=== PATIENT | female | born 1935 | race American Indian/Alaskan Native ===

== ENCOUNTER 2017-05-13 09:08 | Inpatient (IN) | payer MEDICARE, OTHER ==
[2017-05-13 09:24] VITALS: BMI 28.5
[2017-05-13] MEDS ORDERED: Sodium Chloride 0.9% 500 ML IV STA (10:02)
--- NOTE | 2017-05-13 10:02 | ED PDOC ---
Arrival/HPI - General Time Seen by Provider: 05/13/17 09:33 Historian: Patient, Family (son) - History of Present Illness Narrative History of Present Illness (Text): 05/13/17 09:50 Aretha Orlando is an 81 year old female, whose past medical history includes COPD , diabetes, and hypertension, who presents to the emergency department accompanied by son, with complaints of increased fatigue and weakness since yesterday. Patient has had "a cold" consisting of congestion and bodyaches for "two weeks". However the patient's house painter states that she became much more weak since yesterday evening and was intermittently confused and disoriented. She reports generalized headache intermittently for several months, but reports some decreased appetite and feeling short of breath with any exertion. She has chronic swelling to legs, not worse than typical. Reports upper abdominal pain intermittently since yesterday. Patient denies dysuria or frequence. No bloody stool or diarrhea. Time/Duration: 24 hours Symptom Onset: Gradual Symptom Course: Worsening Activities at Onset: Rest Context: Home Past Medical History - Provider Review Nursing Documentation Reviewed: Yes - Cardiac Hx Angina: (chest pain) Hx Hypertension: Yes Hx Pacemaker: Yes (1999) - Pulmonary Hx Chronic Obstructive Pulmonary Disease (COPD): Yes - HEENT Hx HEENT Disorder: Yes (WEARS RX GLASSES) Hx Deafness: Yes (BILATERAL HEARING AIDE) - Endocrine/Metabolic Hx Endocrine Disorders: Yes Hx Diabetes Mellitus Type 2: Yes - Musculoskeletal/Rheumatological Hx Musculoskeletal Disorders: Yes (RIGHT FOOT SURGERY) Hx Arthritis: Yes Hx Falls: No - Gastrointestinal Hx Gastrointestinal Disorders: Yes (CHOLELITHIASIS,CHOLECYSTITIS,INCISIONAL HERNIA) Hx Diverticulitis: Yes (s/p resection) Hx Gastroesophageal Reflux: Yes Other/Comment: HEMORRHOIDS - Genitourinary/Gynecological Hx Genitourinary Disorders: (CEASEREAN,CYST IN FALLOPIAN TUBE) - Psychiatric Hx Substance Use: No - Surgical History Other/Comment: colon resection for diverticulitis - Anesthesia Hx Anesthesia Reactions: Yes (DECREASED O2 SAT AND HR, DIFFICULT TO AROUSE) - Suicidal Assessment Feels Threatened In Home Enviroment: No Family/Social History - Physician Review Nursing Documentation Reviewed: Yes Family/Social History: Unknown Family HX Smoking Status: Former Smoker Hx Alcohol Use: Yes (WINE SOCIALLY) Hx Substance Use: No Allergies/Home Meds Allergies/Adverse Reactions: Allergies Penicillins Adverse Reaction (Verified 05/13/17 10:01) RASH Home Medications: Home Meds Medication Instructions Recorded Confirmed Cholecalciferol [Pure Vitamin D3] 3,000 iu PO DAILY 10/24/14 10/24/14 Furosemide [Lasix] 20 mg PO DAILY 10/24/14 10/24/14 Lisinopril 2.5 mg PO DAILY 10/24/14 10/24/14 Metformin HCl 1,000 mg PO BID 10/24/14 08/28/16 Oxycodone HCl/Acetaminophen 1 tab PO QID 10/24/14 10/24/14 [Oxycodone-Acetaminophen 5-325] Apixaban [Eliquis] 2.5 mg PO DAILY 08/28/16 08/28/16 Ezetimibe [Zetia] 10 mg PO DAILY 08/28/16 08/28/16 Review of Systems - Review of Systems Constitutional: Fatigue Eyes: absent: Vision Changes ENT: Rhinorrhea, Sinus Congestion Respiratory: SOB Cardiovascular: Chest Pain Gastrointestinal: Abdominal Pain, Appetite Changes. absent: Diarrhea Genitourinary Female: absent: Dysuria Musculoskeletal: absent: Back Pain Skin: absent: Rash Neurological: Headache. absent: Dizziness Endocrine: absent: Polyuria Hemo/Lymphatic: absent: Easy Bleeding Psychiatric: absent: Depression Physical Exam - Physical Exam Narrative Physical Exam (Text): 05/13/17 Head: Atraumatic. Normocephalic. No rash. No palpable pain. No rash. Eyes: PERRL. EOMI. Conjunctivae are not pale. Visual acuity and servin intact. ENT: Mucous membranes are dry. No pharyngeal erythema or exudates. Neck: Supple. Full ROM. No JVD. No lymphadenopathy. No meningeal signs. Cardiovascular: Regular rate. Regular rhythm. No murmurs, rubs, or gallops. Distal pulses are 2+ and symmetric. Pulmonary/Chest: No evidence of respiratory distress. Clear to auscultation bilaterally. No wheezing, rales or rhonchi. Abdominal: Soft, nondistended. Focal epigastric pain. No Nava's sign. Mild suprapubic pain, no rebound or guarding. Back: No CVA tenderness. No midlne tenderness. Rectal: no melena or gross bleeding Extremities: Bilateral symmetric edema, no pitting. No cyanosis. No clubbing. Full range of motion in all extremities. No calf tenderness. Skin: Skin is warm and dry. No petechiae. No purpura. Neurological: Alert, awake, and oriented to person, place and time. No slurred speech. No facial droop. No focal weakness to arms and legs. No meningeal signs. Psychiatric: Good eye contact. Normal interaction, affect, and behavior. Vital Signs Reviewed: Yes Vital Signs Temp Pulse Resp BP Pulse Ox 05/13/17 14:44 98.6 F 62 18 102/55 L 97 05/13/17 12:10 62 18 110/66 97 05/13/17 11:00 80 18 130/80 98 05/13/17 10:59 101.9 F H 05/13/17 09:22 100.2 F H 76 20 127/50 L 96 Temperature: Febrile Blood Pressure: Hypotensive Pulse: Regular Respiratory Rate: Normal Appearance: Positive for: Well-Appearing, Non-Toxic, Comfortable Pain Distress: None Mental Status: Positive for: Alert and Oriented X 3 Finger Stick Blood Glucose: 149 Medical Decision Making ED Course and Treatment: 05/13/17 Impression: 81 year old female with increased weakness and confusion since yesterday afternoon. She reports headache, but this appears similar to past episodes and not acute onset. She is noted to be febrile with abdominal pain on exam. Differential Diagnosis included but are not limited to: sepsis vs. COPD vs. colitis vs. UTI vs. dehydration vs. CAD Plan: -- CT Head -- EKG -- Chest X-ray -- Labs -- Urinalysis -- Sodium Chloride -- Reassess and disposition Progress Notes: Patient is examined with family at bedside and present. In ED, patient is fatigued but answers questions appropriately and is alert and oriented. Neck is supple. No focal motor or sensory deficits. Family reports that she has chronic headache. She is noted to be febrile. Tylenol and motrin ordered. IV fluid initiated. EKG reveals what appears to by sinus rhythm, with possible pacs. BP stable. Not tachycardic. Septic workup initiated. IV antibitoics initiated given risk of sepsis and hx of confusion, although none currently with serial exams. Patient denies chest pain or pleuritic pain in ED. Not hypoxic. Lungs clear. Patient takes Eliquis for hx of dvt. Patient does not take Coumadin anymore as per family. No active bleeding noted. CT head reviewed, no acute hemorrhage noted. Patient on re-evaluation with more pronounced upper abdominal pain. She has had prior hx of diverticulitis as well as history of gallstones in past. Ultrasound and ct ordered and reviewed. Surgery consulted due to distended gallbladder and persistent pain. Case d/w Dr. Dumont as requested by admitting PMD Dr. Smith. Current lactate unremarkable and patient with no peritoneal signs, no rebound or guarding. Dr. Smith accepts admission to her service, care turned over to admitting team at 1530. Treatment plan reviewed with family and patient. On re-exam, no focal neuro findings, she is alert and conversive. Influenza positive. Precautions initiated and tamiflu ordered. Will continue monitoring and serial exams. 05/13/17 15:26 - Lab Interpretations Lab Results: 05/13/17 10:15 05/13/17 10:15 Lab Results 05/13/17 11:30: Influenza Typ A,B (EIA) Pos for influenza a H 05/13/17 10:15: Sodium 141, Chloride 105, Potassium 4.2, Carbon Dioxide 22, Anion Gap 18, BUN 14, Creatinine 1.0, Est GFR ( Amer) > 60, Est GFR (Non- Af Amer) 53, Random Glucose 154 H, Calcium 10.0, Total Bilirubin 0.5, AST 50 H, ALT 53, Alkaline Phosphatase 227 H, Lactate Dehydrogenase 445, Total Creatine Kinase 46, Troponin I < 0.01 D, NT-Pro-B Natriuret Pep 149, Total Protein 8.4 H , Albumin 4.2, Globulin 4.2, Albumin/Globulin Ratio 1.0 L 05/13/17 10:15: pO2 30, VBG pH 7.36, VBG pCO2 45.0, VBG HCO3 25.4, VBG Total CO2 26.8, VBG O2 Sat (Calc) 58.1, VBG Base Excess -0.4 L, VBG Potassium 4.5, Sodium 138.0, Chloride 106.0, Glucose 163 H, Lactate 1.7, FiO2 21.0, Venous Blood Potassium 4.5 05/13/17 10:15: PT 14.8 H, INR 1.28 H, APTT 35.4 05/13/17 10:15: WBC 4.9, RBC 4.09, Hgb 12.7, Hct 39.3, MCV 96.1, MCH 31.1, MCHC 32.3, RDW 13.6, Plt Count 247, MPV 9.9, Gran % 66.0, Lymph % (Auto) 24.5, Atlantic % (Auto) 6.7 H, Eos % (Auto) 1.8, Baso % (Auto) 1.0, Gran # 3.26, Lymph # (Auto ) 1.2, Atlantic # (Auto) 0.3, Eos # (Auto) 0.1, Baso # (Auto) 0.05 05/13/17 09:26: POC Glucose (mg/dL) 149 H I have reviewed the lab results: Yes - RAD Interpretation Radiology Orders: 05/13/17 10:01 HEAD W/O CONTRAST [CT] Stat CHEST PORTABLE [RAD] Stat 05/13/17 11:42 ABDOMEN COMPLETE [US] Stat 05/13/17 12:12 ABD & PELVIS IV CONTRAST ONLY [CT] Stat Education Reporter: Radiologist - EKG Interpretation Interpreted by ED Physician: Yes Type: 12 lead EKG - Medication Orders Current Medication Orders: Discontinued Medications Acetaminophen (Tylenol 650 Mg Supp) 650 mg RC ONCE STA Stop: 05/13/17 11:43 Last Admin: 05/13/17 12:37 Dose: 650 mg MAR Pain/Vitals Document 05/13/17 12:37 JESUS (Rec: 05/13/17 12:37 JESUS MARTINES-PC) Pain Reassessment Is This A Pain ReAssessment? No Sleep Is patient sleeping during reassessment? No Presence of Pain Presence of Pain No Sodium Chloride (Sodium Chloride 0.9%) 500 mls @ 1,000 mls/hr IV .Q30M STA Stop: 05/13/17 10:31 Last Admin: 05/13/17 10:30 Dose: 1,000 mls/hr eMAR Start Stop Document 05/13/17 10:30 JESUS (Rec: 05/13/17 10:59 JESUS MARTINES-PC) Intravenous Solution Start Date 05/13/17 Start Time 10:30 End Date 05/13/17 End time 11:00 Total Infusion Time 30 Sodium Chloride (Sodium Chloride 0.9%) 1,000 mls @ 1,000 mls/hr IV .Q1H STA Stop: 05/13/17 12:07 Last Admin: 05/13/17 11:25 Dose: 1,000 mls/hr eMAR Start Stop Document 05/13/17 11:25 JESUS (Rec: 05/13/17 11:26 JESUS MARTINES-PC) Intravenous Solution Start Date 05/13/17 Start Time 11:25 End Date 05/13/17 End time 12:25 Total Infusion Time 60 Levofloxacin/Dextrose (Levaquin 750mg) 750 mg in 150 mls @ 100 mls/hr IVPB STAT STA PRN Reason: Protocol Stop: 05/13/17 13:15 Last Admin: 05/13/17 12:35 Dose: 100 mls/hr eMAR Start Stop Document 05/13/17 12:35 JESUS (Rec: 05/13/17 12:36 JESUS MARTINES-PC) Intravenous Solution Start Date 05/13/17 Start Time 12:00 End Date 05/13/17 End time 13:00 Total Infusion Time 60 Ibuprofen (Motrin Tab) 600 mg PO STAT STA Stop: 05/13/17 11:43 Last Admin: 05/13/17 12:35 Dose: 600 mg MAR Pain/Vitals Document 05/13/17 12:35 JESUS (Rec: 05/13/17 12:35 JESUS MARTINES-PC) Pain Reassessment Is This A Pain ReAssessment? No Sleep Is patient sleeping during reassessment? No Presence of Pain Presence of Pain No Oseltamivir Phosphate (Tamiflu Cap) 75 mg PO STAT STA PRN Reason: Protocol Stop: 05/13/17 11:57 Last Admin: 05/13/17 12:35 Dose: 75 mg - Scribe Statement The provider has reviewed the documentation as recorded by the Sarah Gutierrez Provider Scribe Attestation: All medical record entries made by the Sarah were at my direction and personally dictated by me. I have reviewed the chart and agree that the record accurately reflects my personal performance of the history, physical exam, medical decision making, and the department course for this patient. I have also personally directed, reviewed, and agree with the discharge instructions and disposition. Disposition/Present on Arrival - Present on Arrival Any Indicators Present on Arrival: No History of DVT/PE: No History of Uncontrolled Diabetes: No Urinary Catheter: No History Surgical Site Infection Following: None - Disposition Have Diagnosis and Disposition been Completed?: Yes Diagnosis: Abdominal pain, Influenza, Gallbladder dilatation Disposition: HOSPITALIZED Disposition Time: 14:00 Patient Plan: Admission, Telemetry Condition: SERIOUS
--- NOTE | 2017-05-13 10:22 | RAD ---
HISTORY: Shortness of breath COMPARISON: 10/21/2015. FINDINGS: LUNGS: There is bibasilar atelectasis. No focal consolidation PLEURA: No significant pleural effusion identified, no pneumothorax apparent. CARDIOVASCULAR: The heart is normal in size. There is stable position of left-sided permanent pacing device. OSSEOUS STRUCTURES: No significant abnormalities. VISUALIZED UPPER ABDOMEN: Normal. OTHER FINDINGS: None. IMPRESSION: No active pulmonary disease.
[2017-05-13] MEDS ORDERED: Sodium Chloride 0.9% 1,000 ML IV STA (11:08)
[2017-05-13 11:11] LABS: VENOUS BLOOD GAS BASE EXCESS -0.4 mmol/L (0.0-2.0); VENOUS BLOOD GAS PO2 30 mm/Hg (30-55); VENOUS BLOOD PH 7.36 (7.32-7.43)
--- NOTE | 2017-05-13 11:11 | CT ---
PROCEDURE: CT HEAD WITHOUT CONTRAST. HISTORY: headache COMPARISON: Unenhanced head CT examinations dated 10/19/2015 as well as 07/18/2014. TECHNIQUE: Axial computed tomography images were obtained through the head/brain without intravenous contrast. Radiation dose: Total exam DLP = 868.93 mGy-cm. This CT exam was performed using one or more of the following dose reduction techniques: Automated exposure control, adjustment of the mA and/or kV according to patient size, and/or use of iterative reconstruction technique. FINDINGS: HEMORRHAGE: No intracranial hemorrhage. BRAIN: Mild diffuse cerebral atrophy is reiterated. There is no intracranial hemorrhage, mass effect or parenchymal edema appreciated diffusely in the posterior fossa contents. There is no suspicious extra-axial fluid collection identified. There is no evidence to suggest an acute separate brain infarction at this time grossly. MRI is available for follow-up if clinically warranted. At the right posterior fossa, a stable benign largely calcified lesion measures 1.0 x 1.6 cm once again abutting the posterior lateral right temporal bone likely representing a benign meningioma. VENTRICLES: Unremarkable. No hydrocephalus. CALVARIUM: Unremarkable. PARANASAL SINUSES: Unremarkable as visualized. No significant inflammatory changes. MASTOID AIR CELLS: Unremarkable as visualized. No inflammatory changes. OTHER FINDINGS: None. IMPRESSION: Stable limited age-related neuro degenerative changes are identified without definitive acute intracranial findings by standard CT criteria. 1.6 cm likely benign meningioma is again seen the right posterior fossa laterally.
[2017-05-13 11:15] LABS: BASO # 0.05 K/mm3 (0.0-2.0); EOS # 0.1 (0.0-0.7); EOS % 1.8 % (1.5-5.0); GRAN # 3.26 (1.4-6.5); HEMOGLOBIN 12.7 g/dL (12.0-16.0); LYMPH # 1.2 (1.2-3.4); LYMPH % 24.5 % (22.0-35.0); MEAN CELL VOLUME 96.1 fl (80.0-105.0); MEAN CORPUSCULAR HEMOGLOBIN 31.1 pg (25.0-35.0); MEAN CORPUSCULAR HGB CONC 32.3 g/dl (31.0-37.0); MEAN PLATELET VOLUME 9.9 fl (7.0-11.0); MONO # 0.3 (0.1-0.6); MONO % 6.7 % (1.0-6.0); RBC 4.09 10^6/uL (3.5-6.1); RED CELL DISTRIBUTION WIDTH 13.6 % (11.5-14.5); WHITE BLOOD COUNT 4.9 10^3/ul (4.5-11.0)
[2017-05-13 11:21] LABS: ALBUMIN 4.2 g/dL (3.0-4.8); ALT/SGPT 53 U/L (7-56); AST/SGOT 50 U/L (14-36); BLOOD UREA NITROGEN 14 mg/dL (7-21); GFR AFRICAN-AMERICAN > 60; GFR NON-AFRICAN AMERICAN 53
[2017-05-13 11:23] LABS: INR 1.28 (0.93-1.08); PARTIAL THROMBOPLASTIN TIME 35.4 Seconds (25.1-36.5); PROTHROMBIN TIME 14.8 SECONDS (9.4-12.5)
[2017-05-13 11:32] LABS: B-TYPE NATRIURETIC PEPTIDE 149 pg/mL (0-450); TROPONIN I < 0.01 ng/mL
[2017-05-13] MEDS ORDERED: levoFLOXacin 750 mg in D5W 750 MG/150 ML BAG IVPB STA (11:46)
[2017-05-13] MEDS ORDERED: Iohexol 350 MG/100 ML VIAL ONE (12:19)
--- NOTE | 2017-05-13 13:36 | CT ---
PROCEDURE: CT Abdomen and Pelvis with contrast HISTORY: abdominal pain, fever, diffuse upper pain COMPARISON: None. TECHNIQUE: Following the intravenous administration of iodinated contrast material, a CT examination of the abdomen and pelvis performed from the domes of the diaphragms to the symphysis pubis with reformatted datasets provided not only in axial but also sagittal and coronal planes. Oral contrast was not administered as per referring physician request. Contrast dose: Omnipaque 350, 100 cc Radiation dose: Total exam DLP = 772.59 mGy-cm. This CT exam was performed using one or more of the following dose reduction techniques: Automated exposure control, adjustment of the mA and/or kV according to patient size, and/or use of iterative reconstruction technique. FINDINGS: LOWER THORAX: Resolution of prior mild bilateral pleural effusions noted. Right heart pacemaker lead is again evident. LIVER: There is now moderate intrahepatic biliary duct dilatation with no definite hepatic mass appreciable throughout. GALLBLADDER AND BILE DUCTS: Gallbladder appears mildly distended and is otherwise unremarkable. No radiodense cholelithiasis. However, the extrahepatic biliary tree is dilated. The common hepatic duct measures 9 mm. The proximal CBD measures approximately 8.6 mm. The distal CBD 11 mm. No radiodense choledocholithiasis is appreciated. Pancreatic duct is not appear significantly dilated, measuring 2.0 mm at at the head through midbody distribution, with the prior pancreatic duct stent not identified currently. PANCREAS: Once again, no definitive pancreatic mass is appreciated, however, given the biliary tree dilatation, pancreatic mass is not completely excluded. No definite extrinsic lesion is seen approaching the distal CBD. SPLEEN: Unremarkable. ADRENALS: Unremarkable. No mass. KIDNEYS AND URETERS: Unremarkable. No hydronephrosis. No solid mass. VASCULATURE: Unremarkable. No aortic aneurysm. BOWEL: Unremarkable. No obstruction. No gross mural thickening. APPENDIX: Normal appendix. PERITONEUM: Unremarkable. No free fluid. No free air. LYMPH NODES: Unremarkable. No enlarged lymph nodes. BLADDER: Urinary bladder appears rather distended but thin walled. REPRODUCTIVE: Unremarkable. BONES: No acute fracture. OTHER FINDINGS: Prior ventral abdominal hernia repair again suggested. IMPRESSION: There is interval prominent dilatation of the common hepatic and bile ducts without choledocholithiasis appreciated or definitive pancreatic head mass. The pancreatic lesion remains difficult to exclude however given this interval pattern. Pancreatic duct stent is not identified currently however the pancreatic duct is also grossly normal caliber overall. Moderate intrahepatic biliary dilatation. Gallbladder distention is appreciate without radiodense cholelithiasis grossly evident. Relatively prominent urinary bladder distension with up bladder otherwise unremarkable appearing.
--- NOTE | 2017-05-13 13:38 | US ---
HISTORY: Upper abdominal pain COMPARISON: None. TECHNIQUE: Grayscale imaging was performed. FINDINGS: LIVER: Measures 16.9 cm. There is diffuse increased echogenicity of the liver parenchyma. No mass. No intrahepatic bile duct dilatation. GALLBLADDER: The gallbladder is distended and there is mild pericholecystic fluid. No gallstones. The sonographic Nava's sign is negative COMMON BILE DUCT: Measures 9.7 mm. Moderate diffuse dilatation without evidence for intraluminal stone. PANCREAS: Obscured by bowel gas. RIGHT KIDNEY: Measures 9.5cm. Normal echogenicity. No calculus, mass, or hydronephrosis. LEFT KIDNEY: Measures 9.7cm. Normal echogenicity. No calculus, mass, or hydronephrosis. SPLEEN: Normal in size and contour. No mass. AORTA: No aneurysmal dilatation. IVC: Unremarkable. OTHER FINDINGS: None. IMPRESSION: 1. Distended gallbladder, moderate diffuse dilatation of the common bile duct and mild intrahepatic biliary ductal dilatation. If clinically indicated, an MRI and MRCP may be performed to exclude distal stone/ mass/periampullary obstruction. 2. Fatty liver.
[2017-05-13 15:02] LABS: AMYLASE 66 U/L (35-125); LIPASE 29 U/L (23-300)
--- NOTE | 2017-05-13 15:10 | CP.PCM.CON ---
History of Present Illness - History of Present Illness History of Present Illness: General Surgery consult for Dr. Duncan Consulted for: abdominal pain, possible cholecystitis Patient is an 81y/o F with PMH of acute cholecystitis s/p ERCP with stenting of the biliary tree in 2014 and diverticulitis s/p sigmoidectomy. Patient presented to the ED today after visiting home nurse found patient with AMS this AM. Patient has had intermittent abdomial pain, nausea, vomiting, and cold-like symptoms for the past 2-3 weeks. Per son patient has been having decreased PO intake mostly consistent of broth. Patient denies any current nausea, vomiting but reported epigastric aching pain that spread to both upper quadrants. Denies any hematemsis, melena, hematochezia, diarrha, constipation, mid-back pain, fevers, chills, dysuria, hematuria, chest pain or any other symptoms. Patient tested positive flu in the ED and had a fever 101.9. US was performed which showed mild pericholecystic fluid, dilated gallbladder, and CBD of 9.7mm. CT of abdomen showed dilated gallbladder with dilated CBD, no inflammation of or around the gallbladder, and severely distended urinary bladder. Patient was straight-cathed with 1.5L of urine output. Review of Systems - Review of Systems All systems: reviewed and no additional remarkable complaints except (as per HPI ) Past Patient History - Infectious Disease Hx of Infectious Diseases: None - Past Medical History & Family History Past Medical History?: Yes - Past Social History Smoking Status: Former Smoker Alcohol: Occasional Drugs: Denies Home Situation {Lives}: Alone - CARDIAC Hx Angina: (chest pain) Hx Hypercholesterolemia: Yes Hx Hypertension: Yes Hx Pacemaker: Yes (2000. MRI non-compatible) Other/Comment: coronary artery disease - PULMONARY Hx Chronic Obstructive Pulmonary Disease (COPD): Yes Hx Pulmonary Embolism: Yes - HEENT Hx HEENT Problems: Yes (WEARS RX GLASSES) Hx Deafness: Yes (BILATERAL HEARING AIDE) - ENDOCRINE/METABOLIC Hx Endocrine Disorders: Yes Hx Diabetes Mellitus Type 2: Yes - MUSCULOSKELETAL/RHEUMATOLOGICAL Hx Musculoskeletal Disorders: Yes (RIGHT FOOT SURGERY) Hx Arthritis: Yes Hx Falls: No Other/Comment: BL lower extremity DVT's - GASTROINTESTINAL Hx Gastrointestinal Disorders: Yes (CHOLELITHIASIS,CHOLECYSTITIS,INCISIONAL HERNIA) Hx Diverticulitis: Yes (s/p resection) Hx Gastroesophageal Reflux: Yes Other/Comment: HEMORRHOIDS - PSYCHIATRIC Hx Substance Use: No - SURGICAL HISTORY Hx Surgeries: Yes Other/Comment: colon resection for diverticulitis, pacemaker placement, vericose veins - ANESTHESIA Hx Anesthesia Reactions: Yes (DECREASED O2 SAT AND HR, DIFFICULT TO AROUSE) Meds Allergies/Adverse Reactions: Allergies Allergy/AdvReac Type Severity Reaction Status Date / Time Penicillins AdvReac RASH Verified 05/13/17 10:01 Physical Exam - Constitutional Appears: Well, Non-toxic, No Acute Distress - Head Exam Head Exam: ATRAUMATIC, NORMOCEPHALIC - Eye Exam Eye Exam: Normal appearance. absent: Conjunctival injection, Scleral icterus - ENT Exam ENT Exam: Mucous Membranes Moist, Normal Oropharynx - Respiratory Exam Respiratory Exam: NORMAL BREATHING PATTERN. absent: Accessory Muscle Use, Respiratory Distress - Cardiovascular Exam Cardiovascular Exam: Bradycardia Additional comments: paced rhythm - GI/Abdominal Exam GI & Abdominal Exam: Soft, Tenderness (LLQ>RLQ). absent: Distended, Rebound Additional comments: negative crowell's - Extremities Exam Extremities exam: Positive for: pedal pulses present. Negative for: calf tenderness, pedal edema - Back Exam Back exam: absent: CVA tenderness (L), CVA tenderness (R) - Neurological Exam Neurological exam: Alert, Oriented x3 - Psychiatric Exam Psychiatric exam: Normal Affect, Normal Mood - Skin Skin Exam: Dry, Intact, Normal Color, Warm Results - Vital Signs Recent Vital Signs: Last Vital Signs Temp 98.6 F 05/13/17 14:44 Pulse 62 05/13/17 14:44 Resp 18 05/13/17 14:44 BP 102/55 L 05/13/17 14:44 Pulse Ox 97 05/13/17 14:44 - Labs Result Diagrams: 05/13/17 10:15 05/13/17 10:15 Labs: Laboratory Results - last 24 hr 05/13/17 14:00 Amylase 66 Lipase 29 Assessment & Plan - Assessment and Plan (Free Text) Assessment: 81F with abdominal pain likely d/t gastroenteritis with dilated CBD Plan: -GI consult for EUS/ERCP if indicated -ADAT if GI has no interventive recommendations -PRN nausea nd pain medications -trend CBC/CMP -incentive spirometer -DVT ppx, protonix -No indication for surgical intervention at this time--low suspicion for acute cholecystitis. Further planning pending GI evaluation. Seen and discussed with Dr. Perla Diego PGY2 (surgery pager)
[2017-05-13 15:18] LABS: URINE BILIRUBIN NEGATIVE (NEGATIVE); URINE BLOOD NEGATIVE (NEGATIVE); URINE GLUCOSE (UA) NEGATIVE (NEGATIVE); URINE LEUKOCYTE ESTERASE NEGATIVE Leu/uL (NEGATIVE); URINE NITRATE POSITIVE (NEGATIVE); URINE PROTEIN NEGATIVE mg/dL (<30 mg/dL); URINE UROBILINOGEN 0.2 E.U./dL (<1 E.U./dL)
[2017-05-13 15:20] LABS: URINE APPEARANCE CLEAR (CLEAR); URINE COLOR YELLOW (YELLOW)
[2017-05-13 16:04] LABS: URINE BACTERIA MANY (NEG); URINE EPITHELIAL CELLS 0 - 2 /hpf (0-5); URINE RBC NEGATIVE /hpf (0-2); URINE WBC 0 - 2 /hpf (0-6)
[2017-05-13] MEDS: Sodium Chloride 0.45% 1,000 ML IV SCH (19:34)
[2017-05-13] MEDS: metroNIDAZOLE IV 250mg/50 ml 250 MG/50 ML BAG IV SCH (21:20)
[2017-05-13] MEDS: Insulin Lispro (humaLOG) MEDIUM Coverage SC SCH (21:29)
[2017-05-13] MEDS ORDERED: Insulin Reg-LOW-Coverage SC SCH (22:00)
[2017-05-13] MEDS ORDERED: Influenza Vaccine 60 mcg/0.5 mL SYR (4YR UP) IM ONE (23:18)
[2017-05-13] MEDS ORDERED: Pneumococcal 23-Valent Vaccine IM ONE (23:18)
[2017-05-14] MEDS ORDERED: Oxycodone/Acetaminophen 5/325 mg Tab PO ONE (02:39)
[2017-05-14] MEDS: metroNIDAZOLE IV 250mg/50 ml 250 MG/50 ML BAG IV SCH ×2 (05:16→14:05)
[2017-05-14] MEDS: Meropenem 1g/NS 100mL IVPB 1 GM/100 ML PIGGYBACK IVPB SCH ×3 (06:07→21:35)
--- NOTE | 2017-05-14 06:43 | HP ---
DATE OF EXAM: HISTORY OF PRESENT ILLNESS: Patient is 81 years old, accompanied by son who is by the bedside today. She has been having cough and congestion for almost 2 weeks, but this morning she woke up, according to her hardness inspector, she was confused and disoriented. So they called ambulance and while she was brought to the Emergency Room, she was found to have a temperature of 101.9. PAST MEDICAL HISTORY: Significant for 1. Hypertension. 2. History of cholelithiasis. She was about to have a cholecystectomy done, but it was found that she has bilateral pulmonary embolism. She was initially on Coumadin and then it was switched to Eliquis. Patient was admitted in September 2014 with acute cholecystitis and abnormal LFTs, but later on she was transferred on 11/07/2014. She was discharged on 11/07 to rehab and patient was scheduled for ERCP by and outpatient. 3. Pacemaker placement. 4. Pulmonary embolism. 5. Sleep apnea. 6. Hyperlipidemia. 7. COPD. 8. Zlx-rjrkpcr-ctxtsbpoi diabetes. ALLERGIES: SHE IS ALLERGIC TO PENICILLIN. MEDICATIONS AT HOME: She is on Eliquis. She is on Actigall 300 daily, Protonix 40 daily, Lasix 20 mg daily, lisinopril 2.5 daily, metformin 500 twice day, timolol eye drops, gabapentin 300 daily and vitamin D. SOCIAL HISTORY: She used to be a smoker, quit at the age of 60. She socially drinks. REVIEW OF SYSTEMS: Significant for abdominal discomfort, feeling lethargic. PHYSICAL EXAMINATION: GENERAL: She is awake and alert, able to communicate. VITAL SIGNS: She is afebrile. Pulse 68, respirations 16, blood pressure 120/58. LUNGS: Bilateral fair airflow. No rhonchi or crackle. HEART: S1 and S2 audible. ABDOMEN: Soft, slight epigastric and right upper quadrant discomfort with some guarding. Bowel sound is sluggish. EXTREMITIES: Bilateral leg +2 edema. LABORATORY DATA: WBC is 4.9, hemoglobin 12.7, hematocrit 39.3, platelets 247. Chemistry: Sodium 141, potassium 4.2, chloride 105, CO2 of 22, BUN 14, creatinine 1.0, blood sugar of 154. LFTs are within normal limits. AST 50, alkaline phosphatase 227, LDH is 445, troponin is 0.01. Urine positive for nitrite. Flu test is positive. She had CT scan of the abdomen and pelvis done that shows slight dilatation of common bile duct and faint density questionable for calculus or soft tissue lesion obstructing the duct. Abdominal sonogram done shows distended gallbladder and moderate diffuse dilatation of common bile duct and intrahepatic biliary ductal dilatation. CT scan of the brain was negative. ASSESSMENT: 1. Viral syndrome. 2. Common bile duct obstruction. 3. History of chronic obstructive pulmonary disease. 4. Hypertension. 5. Hyperlipidemia. 6. Vyw-icnvljv-rgsxdgisv diabetes. PLAN: We will keep patient n.p.o. We will give IV fluids, IV antibiotics. Surgical consult with Dr. Duncan, GI consult with Dr. Guevara and Dr. Urias has been consulted. We will empirically start her on IV antibiotics, keep her n.p.o, monitor blood sugar. We will follow up with the patient.. Silvio Smith MD
[2017-05-14 07:10] LABS: BASO # 0.03 K/mm3 (0.0-2.0); BASO % 0.9 % (0.0-3.0); EOS % 1.3 % (1.5-5.0); GRAN # 1.21 (1.4-6.5); GRAN % 38.1 % (50.0-68.0); HEMOGLOBIN 11.5 g/dL (12.0-16.0); LYMPH # 1.5 (1.2-3.4); LYMPH % 48.1 % (22.0-35.0); MEAN CELL VOLUME 94.5 fl (80.0-105.0); MEAN CORPUSCULAR HEMOGLOBIN 30.3 pg (25.0-35.0); MEAN PLATELET VOLUME 9.9 fl (7.0-11.0); MONO # 0.4 (0.1-0.6); MONO % 11.6 % (1.0-6.0); RBC 3.8 10^6/uL (3.5-6.1); RED CELL DISTRIBUTION WIDTH 13.7 % (11.5-14.5); WHITE BLOOD COUNT 3.2 10^3/ul (4.5-11.0)
[2017-05-14 07:55] LABS: ALB/GLOB RATIO 0.9 (1.1-1.8); ALBUMIN 3.7 g/dL (3.0-4.8); ALT/SGPT 46 U/L (7-56); AST/SGOT 41 U/L (14-36); BLOOD UREA NITROGEN 11 mg/dL (7-21); CALCIUM 9.4 mg/dL (8.4-10.5); GFR AFRICAN-AMERICAN > 60; GFR NON-AFRICAN AMERICAN > 60
[2017-05-14] MEDS: Insulin Lispro (humaLOG) MEDIUM Coverage SC SCH ×4 (08:01→22:00)
--- NOTE | 2017-05-14 09:09 | CP.PCM.PN ---
Subjective - Date & Time of Evaluation Date of Evaluation: 05/14/17 Time of Evaluation: 08:57 - Subjective Subjective: General surgery progress note for Dr. Duncan Patient seen and examined at bedside. Patient is still having abdominal pain and nausea. Otherwise no complaints, denies fevers, chills, vomiting. Objective - Vital Signs/Intake and Output Vital Signs (last 24 hours): Temp Pulse Resp BP Pulse Ox 98.1 F 65 20 118/70 98 05/14/17 06:00 05/14/17 06:00 05/14/17 06:00 05/14/17 06:00 05/14/17 06:00 Intake and Output: 05/14/17 05/14/17 06:59 18:59 Intake Total 0 Output Total 200 Balance -200 - Medications Medications: Current Medications Acetaminophen (Tylenol 325mg Tab) 650 mg PO Q6H PRN PRN Reason: Fever >100.4 F Last Admin: 05/14/17 08:03 Dose: 650 mg Enoxaparin Sodium (Lovenox) 40 mg SC DAILY [facility] PRN Reason: Protocol Levofloxacin/Dextrose (Levaquin 500mg) 500 mg in 100 mls @ 100 mls/hr IVPB DAILY [facility] PRN Reason: Protocol Metronidazole (Flagyl) 250 mg in 50 mls @ 100 mls/hr IV Q8 [facility] PRN Reason: Protocol Stop: 05/18/17 22:01 Last Admin: 05/14/17 05:16 Dose: 100 mls/hr Sodium Chloride (Sodium Chloride 0.45%) 1,000 mls @ 75 mls/hr IV .[id number] [facility] Last Admin: 05/13/17 19:34 Dose: 75 mls/hr Meropenem/Sodium Chloride (Meropenem 1g/Ns 100ml Ivpb) 1 gm in 100 mls @ 100 mls/hr IVPB Q8 [facility] PRN Reason: Protocol Stop: 05/23/17 06:01 Last Admin: 05/14/17 06:07 Dose: 100 mls/hr Insulin Human Lispro (Humalog Med) 0 units SC ACHS [facility] PRN Reason: Protocol Last Admin: 05/14/17 08:01 Dose: Not Given Ondansetron HCl (Zofran Inj) 4 mg IVP Q6H PRN PRN Reason: Nausea/Vomiting Last Admin: 05/14/17 00:39 Dose: 4 mg Oseltamivir Phosphate (Tamiflu Cap) 75 mg PO BID [facility] PRN Reason: Protocol Stop: 05/18/17 18:52 Pantoprazole Sodium (Protonix Inj) 40 mg IVP DAILY [facility] Timolol Maleate (Timoptic 0.5% Ophth Soln) 1 drop OU BID [facility] Last Admin: 05/13/17 20:33 Dose: 1 drop - Labs Labs: 05/14/17 06:50 05/14/17 06:50 PT 14.8 SECONDS (9.4-12.5) H 05/13/17 10:15 INR 1.28 (0.93-1.08) H 05/13/17 10:15 APTT 35.4 Seconds (25.1-36.5) 05/13/17 10:15 - Constitutional Appears: Well - Head Exam Head Exam: ATRAUMATIC, NORMAL INSPECTION, NORMOCEPHALIC - Eye Exam Eye Exam: EOMI, Normal appearance, PERRL Pupil Exam: NORMAL ACCOMODATION, PERRL - ENT Exam ENT Exam: Mucous Membranes Moist, Normal Exam - Neck Exam Neck Exam: Full ROM, Normal Inspection. absent: Lymphadenopathy - Respiratory Exam Respiratory Exam: Clear to Ausculation Bilateral, NORMAL BREATHING PATTERN - Cardiovascular Exam Cardiovascular Exam: REGULAR RHYTHM, +S1, +S2. absent: Murmur - GI/Abdominal Exam GI & Abdominal Exam: Soft, Normal Bowel Sounds. absent: Tenderness Additional comments: Negative crowell's. Tenderness in LLQ and RLQ - Rectal Exam Rectal Exam: NORMAL INSPECTION - Exam Exam: Circumcision, NORMAL INSPECTION External exam: NORMAL EXTERNAL EXAM Speculum exam: NORMAL SPECULUM EXAM Bimanual exam: NORMAL BIMANUAL EXAM - Extremities Exam Extremities Exam: Full ROM, Normal Capillary Refill, Normal Inspection. absent : Joint Swelling, Pedal Edema - Back Exam Back Exam: NORMAL INSPECTION - Neurological Exam Neurological Exam: Alert, Awake, CN II-XII Intact, Normal Gait, Oriented x3 - Psychiatric Exam Psychiatric exam: Normal Affect, Normal Mood - Skin Skin Exam: Dry, Intact, Normal Color, Warm Assessment and Plan - Assessment and Plan (Free Text) Assessment: Assessment and Plan 81F with abdominal pain likely d/t gastroenteritis with dilated CBD Plan: - GI consult for EUS/ERCP if indicated - ADAT if GI has no interventive recommendations - PRN nausea nd pain medications - trend CBC/CMP - incentive spirometer - DVT ppx, protonix - No indication for surgical intervention at this time--low suspicion for acute cholecystitis. Further planning pending GI evaluation.
--- NOTE | 2017-05-14 09:40 | CARD ---
APPROVED REPORT EKG Measurement Heart [id number] <Conclusion> Abnormal pacer fx. with non-sensing, non capture of atrial lead. Suggest clinical correlation.
[2017-05-14] MEDS ORDERED: levoFLOXacin 500 mg in D5W 500 MG/100 ML BAG IVPB SCH (10:00)
[2017-05-14] MEDS ORDERED: Enoxaparin 40 mg Syringe SC SCH (10:00)
[2017-05-14] MEDS: Oxycodone/Acetaminophen 5/325 mg Tab PO PRN ×2 (11:10→17:13)
[2017-05-14] MEDS: Sodium Chloride 0.45% 1,000 ML IV SCH (14:06)
--- NOTE | 2017-05-14 15:24 | CP.PCM.CON ---
<Jaclyn Goss - Last Filed: 05/14/17 15:32> History of Present Illness - History of Present Illness History of Present Illness: Seen and examined at the bedside earlier today, chart reviewed. Request for GI consult is for abdominal pain/gallbladder distention. HPI: This is an 81-year-old female with a past medical history of hypertension, known cholelithiasis, due to have cholecystectomy but found to have pulmonary embolism and placed on Eliquis. the patient was brought by her son with complaints of coughing and congestion for 2 weeks, the patient was reported by the assignment officer to be confused and disoriented. She also was found to have a temperature of 101.9 in the emergency room. The patient currently is awake and alert and aware of surroundings. She does complain of abdominal discomfort. On admission the patient rapid flu tests with positive and is currently on droplet isolation. She had an abdominal ultrasound on admission and this was reportedly gallbladder distention and moderate diffuse dilatation of the common bile duct and intrahepatic biliary duct. She also had a CT scan of abdomen and pelvis which showed slight dilatation of common bile duct was followin questionable soft tissue lesion obstructing the duct. Patient reports having an endoscopy and colonoscopy many years ago at [facility], does not recall any history of polyps or ulcers. also in review of patient's chart from previous admission the patient underwent in the EGD EUS/ERCP on September/2014 found to have dilated CBD, gallstones and abrupt end of distal CBD, attempted ERCP but unable to cannulate CBD. Pancreatic stent inserted. The patient was given appointment to see Dr. Graham at [facility], in [place]. Past medical history: Hypertension, cholelithiasis with recommendation for surgery postponed, patient developed PE and currently on Eliquis, pacemaker, Sleep apnea,Hph-yzeqlar-ogjazvmzn diabetes,COPD,Diverticulitiscolon requiring partial colectomy Surgical history: Partial colectomy, pacemaker Family history: Noncontributory Allergies: Penicillin Medications: Reviewed as per MAR significant for Eliquis, Actigall, Protonix Social history: History of smoking, drinks alcohol socially, denies recreational drug use ROS: Systems reviewed. Positive findings see HPI Past Patient History - Infectious Disease Hx of Infectious Diseases: None - Past Medical History & Family History Past Medical History?: Yes - Past Social History Smoking Status: Never Smoked - CARDIAC Hx Angina: Yes (chest pain) Hx Hypercholesterolemia: Yes Hx Hypertension: Yes Hx Pacemaker: Yes (2000. MRI non-compatible) Other/Comment: coronary artery disease, varicose vein stripping r leg - PULMONARY Hx Respiratory Disorders: (pe) Hx Chronic Obstructive Pulmonary Disease (COPD): Yes Hx Sleep Apnea: Yes - HEENT Hx HEENT Problems: Yes (WEARS RX GLASSES) Hx Deafness: Yes (BILATERAL HEARING AIDE) - ENDOCRINE/METABOLIC Hx Endocrine Disorders: Yes Hx Diabetes Mellitus Type 2: Yes - MUSCULOSKELETAL/RHEUMATOLOGICAL Hx Falls: No - GASTROINTESTINAL Hx Gastrointestinal Disorders: Yes (CHOLELITHIASIS,CHOLECYSTITIS,INCISIONAL HERNIA) Hx Diverticulitis: Yes (s/p resection) Hx Gall Bladder Disease: (gallstones) Hx Gastroesophageal Reflux: Yes Other/Comment: HEMORRHOIDS - GENITOURINARY/GYNECOLOGICAL Hx Genitourinary Disorders: (CEASEREAN,CYST IN FALLOPIAN TUBE) - PSYCHIATRIC Hx Substance Use: No - SURGICAL HISTORY Hx Surgeries: Yes Other/Comment: colon resection for diverticulitis, pacemaker placement, vericose veins, c section, cyst in fallopian tube, incisional hernia - ANESTHESIA Hx Anesthesia Reactions: Yes (DECREASED O2 SAT AND HR, DIFFICULT TO AROUSE) Meds Allergies/Adverse Reactions: Allergies Allergy/AdvReac Type Severity Reaction Status Date / Time Penicillins AdvReac RASH Verified 05/13/17 10:01 - Medications Medications: Current Medications Acetaminophen (Tylenol 325mg Tab) 650 mg PO Q6H PRN PRN Reason: Fever >100.4 F Last Admin: 05/14/17 08:03 Dose: 650 mg Enoxaparin Sodium (Lovenox) 40 mg SC DAILY TODD PRN Reason: Protocol Last Admin: 05/14/17 09:51 Dose: 40 mg Levofloxacin/Dextrose (Levaquin 500mg) 500 mg in 100 mls @ 100 mls/hr IVPB DAILY [facility] PRN Reason: Protocol Last Admin: 05/14/17 09:50 Dose: 100 mls/hr Metronidazole (Flagyl) 250 mg in 50 mls @ 100 mls/hr IV Q8 TODD PRN Reason: Protocol Stop: 05/18/17 22:01 Last Admin: 05/14/17 05:16 Dose: 100 mls/hr Sodium Chloride (Sodium Chloride 0.45%) 1,000 mls @ 75 mls/hr IV .[id number] [facility] Last Admin: 05/13/17 19:34 Dose: 75 mls/hr Meropenem/Sodium Chloride (Meropenem 1g/Ns 100ml Ivpb) 1 gm in 100 mls @ 100 mls/hr IVPB Q8 TODD PRN Reason: Protocol Stop: 05/23/17 06:01 Last Admin: 05/14/17 06:07 Dose: 100 mls/hr Insulin Human Lispro (Humalog Med) 0 units SC ACHS [facility] PRN Reason: Protocol Last Admin: 05/14/17 11:12 Dose: 1 units Ondansetron HCl (Zofran Inj) 4 mg IVP Q6H PRN PRN Reason: Nausea/Vomiting Last Admin: 05/14/17 00:39 Dose: 4 mg Oseltamivir Phosphate (Tamiflu Cap) 75 mg PO BID [facility] PRN Reason: Protocol Stop: 05/18/17 18:52 Last Admin: 05/14/17 09:52 Dose: 75 mg Oxycodone/Acetaminophen (Percocet 5/325 Mg Tab) 1 tab PO Q6H PRN PRN Reason: pain,mod Stop: 05/17/17 10:37 Last Admin: 05/14/17 11:10 Dose: 1 tab Pantoprazole Sodium (Protonix Inj) 40 mg IVP DAILY [facility] Last Admin: 05/14/17 09:51 Dose: 40 mg Timolol Maleate (Timoptic 0.5% Ophth Soln) 1 drop OU BID [facility] Last Admin: 05/14/17 09:52 Dose: 1 drop Physical Exam - Constitutional Appears: No Acute Distress - Eye Exam Eye Exam: Normal appearance. absent: Scleral icterus - ENT Exam ENT Exam: Mucous Membranes Moist - Neck Exam Neck exam: Positive for: Normal Inspection - Respiratory Exam Respiratory Exam: Decreased Breath Sounds, Rhonchi, NORMAL BREATHING PATTERN. absent: Respiratory Distress - Cardiovascular Exam Cardiovascular Exam: +S1, +S2 - GI/Abdominal Exam GI & Abdominal Exam: Normal Bowel Sounds, Soft, Tenderness (some tendernessRUQ, no rebound or guarding). absent: Guarding, Organomegaly, Rebound - Extremities Exam Extremities exam: Positive for: pedal edema (bilateral leg edema +2), pedal pulses present. Negative for: calf tenderness - Neurological Exam Neurological exam: Alert, Oriented x3 - Skin Skin Exam: Dry, Warm Results - Vital Signs Recent Vital Signs: Last Vital Signs Temp 98.1 F 05/14/17 06:00 Pulse 65 05/14/17 06:00 Resp 20 05/14/17 06:00 BP 118/70 05/14/17 06:00 Pulse Ox 98 05/14/17 06:00 - Labs Result Diagrams: 05/14/17 06:50 05/14/17 06:50 Labs: Laboratory Results - last 24 hr 05/13/17 05/13/17 05/13/17 14:00 14:25 17:26 WBC RBC Hgb Hct MCV MCH MCHC RDW Plt Count MPV Gran % Lymph % (Auto) Sanders % (Auto) Eos % (Auto) Baso % (Auto) Gran # Lymph # (Auto) Sanders # (Auto) Eos # (Auto) Baso # (Auto) Sodium Potassium Chloride Carbon Dioxide Anion Gap BUN Creatinine Est GFR ( Amer) Est GFR (Non-Af Amer) POC Glucose (mg/dL) 84 Random Glucose Calcium Total Bilirubin AST ALT Alkaline Phosphatase Total Protein Albumin Globulin Albumin/Globulin Ratio Amylase 66 Lipase 29 Urine Color Yellow Urine Appearance Clear Urine pH 6.0 Ur Specific [place] 1.015 Urine Protein Negative Urine Glucose (UA) Negative Urine Ketones Negative Urine Blood Negative Urine Nitrate Positive H Urine Bilirubin Negative Urine Urobilinogen 0.2 Ur Leukocyte Esterase Negative Urine RBC Negative Urine WBC 0 - 2 Ur Epithelial Cells 0 - 2 Urine Bacteria Many 05/13/17 05/14/17 05/14/17 21:24 06:50 06:50 WBC 3.2 L D RBC 3.80 Hgb 11.5 L Hct 35.9 L MCV 94.5 MCH 30.3 MCHC 32.0 RDW 13.7 Plt Count 237 MPV 9.9 Gran % 38.1 L Lymph % (Auto) 48.1 H Sanders % (Auto) 11.6 H Eos % (Auto) 1.3 L Baso % (Auto) 0.9 Gran # 1.21 L Lymph # (Auto) 1.5 Sanders # (Auto) 0.4 Eos # (Auto) 0.0 Baso # (Auto) 0.03 Sodium 142 Potassium 4.0 Chloride 109 H Carbon Dioxide 20 L Anion Gap 18 BUN 11 Creatinine 0.9 Est GFR ( Amer) > 60 Est GFR (Non-Af Amer) > 60 POC Glucose (mg/dL) 80 Random Glucose 105 Calcium 9.4 Total Bilirubin 0.5 AST 41 H ALT 46 Alkaline Phosphatase 186 H Total Protein 7.7 Albumin 3.7 Globulin 4.0 Albumin/Globulin Ratio 0.9 L Amylase Lipase Urine Color Urine Appearance Urine pH Ur Specific [place] Urine Protein Urine Glucose (UA) Urine Ketones Urine Blood Urine Nitrate Urine Bilirubin Urine Urobilinogen Ur Leukocyte Esterase Urine RBC Urine WBC Ur Epithelial Cells Urine Bacteria 05/14/17 05/14/17 07:18 11:11 WBC RBC Hgb Hct MCV MCH MCHC RDW Plt Count MPV Gran % Lymph % (Auto) Sanders % (Auto) Eos % (Auto) Baso % (Auto) Gran # Lymph # (Auto) Sanders # (Auto) Eos # (Auto) Baso # (Auto) Sodium Potassium Chloride Carbon Dioxide Anion Gap BUN Creatinine Est GFR ( Amer) Est GFR (Non-Af Amer) POC Glucose (mg/dL) 104 169 H Random Glucose Calcium Total Bilirubin AST ALT Alkaline Phosphatase Total Protein Albumin Globulin Albumin/Globulin Ratio Amylase Lipase Urine Color Urine Appearance Urine pH Ur Specific [place] Urine Protein Urine Glucose (UA) Urine Ketones Urine Blood Urine Nitrate Urine Bilirubin Urine Urobilinogen Ur Leukocyte Esterase Urine RBC Urine WBC Ur Epithelial Cells Urine Bacteria Assessment & Plan - Assessment and Plan (Free Text) Assessment: Assessment: Abdominal pain Dilated common bile duct, rule out CBD stone, rule out malignancy Cholelithiasis Influenza Elevated LFTs Pew-klviqlw-rlmljjsch diabetes Hypertension History of PE History of pacemaker Plan: Start clear liquid diet Patient is not a candidate for MR CP/MRI, history of pacemaker Patient would benefit from EGD EUS for further evaluation of biliary ductal dilatation and abnormal findings on CT for further evaluation, when optimal patient currently with a viral syndrome. Continue to trend LFTs Continued GI prophylaxis Continue IV antibiotics as per ID On Lovenox On Tamiflu Surgery and ID following Thank you for this consult and for allowing us to participate in your patient's care, further recommendations based upon clinical course. Seen and discussed with Dr. Guevara. <Tania Guevara V - Last Filed: 05/15/17 01:44> Meds - Medications Medications: Current Medications Acetaminophen (Tylenol 325mg Tab) 650 mg PO Q6H PRN PRN Reason: Fever >100.4 F Last Admin: 05/14/17 08:03 Dose: 650 mg Apixaban (Eliquis) 5 mg PO BID [facility] PRN Reason: Protocol Sodium Chloride (Sodium Chloride 0.45%) 1,000 mls @ 75 mls/hr IV .[id number] [facility] Last Admin: 05/14/17 14:06 Dose: 75 mls/hr Meropenem/Sodium Chloride (Meropenem 1g/Ns 100ml Ivpb) 1 gm in 100 mls @ 100 mls/hr IVPB Q8 TODD PRN Reason: Protocol Stop: 05/23/17 06:01 Last Admin: 05/14/17 21:35 Dose: 100 mls/hr Insulin Human Lispro (Humalog Med) 0 units SC ACHS [facility] PRN Reason: Protocol Last Admin: 05/14/17 22:00 Dose: Not Given Ondansetron HCl (Zofran Inj) 4 mg IVP Q6H PRN PRN Reason: Nausea/Vomiting Last Admin: 05/14/17 00:39 Dose: 4 mg Oseltamivir Phosphate (Tamiflu Cap) 75 mg PO BID [facility] PRN Reason: Protocol Stop: 05/18/17 18:52 Last Admin: 05/14/17 17:12 Dose: 75 mg Oxycodone/Acetaminophen (Percocet 5/325 Mg Tab) 1 tab PO Q6H PRN PRN Reason: pain,mod Stop: 05/17/17 10:37 Last Admin: 05/14/17 17:13 Dose: 1 tab Pantoprazole Sodium (Protonix Inj) 40 mg IVP DAILY [facility] Last Admin: 05/14/17 09:51 Dose: 40 mg Timolol Maleate (Timoptic 0.5% [facility] Soln) 1 drop OU BID [facility] Last Admin: 05/14/17 17:13 Dose: 1 drop Ursodiol (Actigall) 300 mg PO 0800 [facility] Results - Vital Signs Recent Vital Signs: Last Vital Signs Temp 98.3 F 05/15/17 00:54 Pulse 63 05/15/17 00:54 Resp 20 05/15/17 00:54 BP 147/78 05/15/17 00:54 Pulse Ox 97 05/15/17 00:54 - Labs Result Diagrams: 05/14/17 06:50 05/14/17 06:50 Labs: Laboratory Results - last 24 hr 05/14/17 05/14/17 05/14/17 06:50 06:50 07:18 WBC 3.2 L D RBC 3.80 Hgb 11.5 L Hct 35.9 L MCV 94.5 MCH 30.3 MCHC 32.0 RDW 13.7 Plt Count 237 MPV 9.9 Gran % 38.1 L Lymph % (Auto) 48.1 H Sanders % (Auto) 11.6 H Eos % (Auto) 1.3 L Baso % (Auto) 0.9 Gran # 1.21 L Lymph # (Auto) 1.5 Sanders # (Auto) 0.4 Eos # (Auto) 0.0 Baso # (Auto) 0.03 Sodium 142 Potassium 4.0 Chloride 109 H Carbon Dioxide 20 L Anion Gap 18 BUN 11 Creatinine 0.9 Est GFR ( Amer) > 60 Est GFR (Non-Af Amer) > 60 POC Glucose (mg/dL) 104 Random Glucose 105 Calcium 9.4 Total Bilirubin 0.5 AST 41 H ALT 46 Alkaline Phosphatase 186 H Total Protein 7.7 Albumin 3.7 Globulin 4.0 Albumin/Globulin Ratio 0.9 L 05/14/17 05/14/17 05/14/17 11:11 17:03 21:49 WBC RBC Hgb Hct MCV MCH MCHC RDW Plt Count MPV Gran % Lymph % (Auto) Sanders % (Auto) Eos % (Auto) Baso % (Auto) Gran # Lymph # (Auto) Sanders # (Auto) Eos # (Auto) Baso # (Auto) Sodium Potassium Chloride Carbon Dioxide Anion Gap BUN Creatinine Est GFR ( Amer) Est GFR (Non-Af Amer) POC Glucose (mg/dL) 169 H 159 H 147 H Random Glucose Calcium Total Bilirubin AST ALT Alkaline Phosphatase Total Protein Albumin Globulin Albumin/Globulin Ratio Attending/Attestation - Attestation I have personally seen and examined this patient.: Yes I have fully participated in the care of the patient.: Yes I have reviewed all pertinent clinical information: Yes Notes (Text): This is an addendum to GI consult report dictated by Jaclyn Goss APN.The patient was seen and examined earlier. Medical records, lab studies, imagings were reviewed. Last 24 hours events reviewed. Agreed with the above treatment plan as outlined in Jaclyn Goss APN's notes the with the addition of the following 05/15/17 01:42
--- NOTE | 2017-05-14 23:35 | PN ---
DATE: SUBJECTIVE: Patient is an 81-year-old, seen and examined, lying in bed, seem to be comfortable. No cough, no congestion. Tolerating clear liquid. No nausea or vomiting. Has abdominal discomfort. PHYSICAL EXAMINATION: VITAL SIGNS: She is afebrile. Pulse 65, respirations 20, blood pressure 118/70. LUNGS: Bilateral good airflow. No rhonchi or crackle. HEART: S1 and S2 audible. ABDOMEN: Soft, slight epigastric and right upper quadrant discomfort. NEUROLOGIC: Patient is awake and alert. Able to communicate. LABORATORY DATA: WBC 3.2, hemoglobin 11.5, hematocrit 35.9, platelets of 237. PT 14.8, INR 1.28. Chemistry: Sodium 142, potassium 4.0, chloride 109, CO2 of 20, BUN 11, creatinine 0.9, blood sugar of 104. AST 41, alkaline phosphatase 186. Urine, nitrite positive. Flu test is positive. She had CT scan of the abdomen and pelvis done that shows prominent dilatation of the common hepatic and bile duct without stone appreciated. ASSESSMENT: 1. Viral syndrome, positive for flu. 2. History of chronic obstructive pulmonary disease. 3. Non-insulin dependant diabetes. 4. Hypertension. 5. History of deep vein thrombosis. PLAN: GI input noted and appreciated. We will restart patient on ursodiol and we will start her on Eliquis. Monitor blood sugar. Discontinue her Lovenox. Continue her on meropenem, Protonix. She is currently on IV fluid. We will monitor her electrolyte. We will follow up this patient in a.m. Silvio Smith MD
--- NOTE | 2017-05-15 04:20 | CON ---
DATE: 05/14/2017 LOCATION: The patient is seen earlier this morning in room 370-B, bed 1. CHIEF COMPLAINT: Weakness times several days. HISTORY OF PRESENT ILLNESS: This is an 81-year-old female with past medical history of chronic obstructive lung disease, diabetes mellitus, hypertension, who was brought to the emergency room with weakness, flu-like symptoms, body aches, low-grade fevers, and cough. The patient was found to have a fever in the emergency room. Infectious Disease consultation requested. This morning, the patient states that she is feeling weak. She has no headaches at this time, although the patient states that she had headaches earlier. No nausea. No dysuria. No frequency. PAST MEDICAL HISTORY: Significant for diabetes mellitus, hypertension, diverticulitis, chronic obstructive lung disease. The patient also has arthritis, deafness, history of gallstones. PAST SURGICAL HISTORY: Significant for colon resection, , and a pacemaker. ALLERGIES: THE PATIENT IS ALLERGIC TO PENICILLIN. HOME MEDICATIONS: Include lisinopril, Lasix, pantoprazole, oxycodone, ursodiol, Zetia, metformin. PHYSICAL EXAMINATION: GENERAL: The patient is in bed, in no acute distress. VITAL SIGNS: Temperature 98, T-max is 101.9, respiratory rate of 20, heart rate of 67, blood pressure of 118/70. The patient is saturating at 98%. HEENT: Examination of HEENT is unremarkable. NECK: Supple. LUNGS: Have decreased breath sounds. HEART: Normal S1, S2. ABDOMEN: Soft. Nontender. No organomegaly. No rebound or guarding or masses. LABORATORY DATA: Reveals a white count of 3.2, hemoglobin of 11, platelets of 237. Coagulation is noted. Chemistries reveals a BUN of 11, creatinine of 0.9, alk phos is 186, AST is 41, ALT is 46. Urinalysis is noted. Serology is influenza A positive. Microbiology is pending. The patient does have a gram-negative davis in the urine. The blood cultures are negative, preliminary. Urinalysis with 0-2 wbc's. DIAGNOSTIC DATA: The patient had a chest x-ray, which is negative. The patient was seen by Jaclyn Goss, gastroenterology team. Consultation is reviewed. Dr. Smith's note is reviewed. CAT scan of the abdomen shows biliary ductal dilatation. Dr. Smith's history and physical examination is reviewed. The patient also had a history of pulmonary emboli as per Dr. Smith's note. The patient also had an ultrasound of the abdomen, results are reviewed, which shows the gallbladder is distended, mild pericholecystic fluid, no gallstones, sonographic Nava's sign is negative, bile duct measures 9.7 mm. ASSESSMENT AND PLAN: This is an 81-year-old female with chronic obstructive lung disease, diabetes, hypertension, pulmonary emboli, diverticulitis, arthritis, deafness, gallstones. The patient has sepsis secondary to influenza A with biliary dilatation, cholelithiasis. THE PATIENT IS ALLERGIC TO PENICILLIN. Treat the patient with Tamiflu and meropenem. Discontinue the Flagyl. We will discontinue the Levaquin. The patient had a negative chest x-ray. An EKG with a QTC of 425. We will make further recommendations. We will follow closely with you. Antolin Urias MD
[2017-05-15] MEDS: Meropenem 1g/NS 100mL IVPB 1 GM/100 ML PIGGYBACK IVPB SCH ×3 (05:15→22:21)
[2017-05-15] MEDS: Insulin Lispro (humaLOG) MEDIUM Coverage SC SCH ×4 (07:59→22:20)
[2017-05-15 08:25] LABS: BASO # 0.03 K/mm3 (0.0-2.0); EOS # 0.1 (0.0-0.7); EOS % 3.1 % (1.5-5.0); GRAN # 1.13 (1.4-6.5); GRAN % 38.8 % (50.0-68.0); HEMOGLOBIN 11.2 g/dL (12.0-16.0); LYMPH # 1.4 (1.2-3.4); LYMPH % 47.9 % (22.0-35.0); MEAN CORPUSCULAR HEMOGLOBIN 30.4 pg (25.0-35.0); MEAN CORPUSCULAR HGB CONC 32.4 g/dl (31.0-37.0); MONO # 0.3 (0.1-0.6); MONO % 9.2 % (1.0-6.0); RBC 3.68 10^6/uL (3.5-6.1); RED CELL DISTRIBUTION WIDTH 13.4 % (11.5-14.5)
[2017-05-15 08:40] LABS: WHITE BLOOD COUNT 2.9 10^3/ul (4.5-11.0)
[2017-05-15 08:56] LABS: ALB/GLOB RATIO 0.9 (1.1-1.8); ALBUMIN 3.4 g/dL (3.0-4.8); ALT/SGPT 42 U/L (7-56); AST/SGOT 35 U/L (14-36); BLOOD UREA NITROGEN 8 mg/dL (7-21); CALCIUM 9.5 mg/dL (8.4-10.5); GFR AFRICAN-AMERICAN > 60; GFR NON-AFRICAN AMERICAN > 60
[2017-05-15] MEDS: Oxycodone/Acetaminophen 5/325 mg Tab PO PRN (09:58)
[2017-05-15 13:00] LABS: HEPATITIS B SURFACE AG Negative (NEGATIVE)
[2017-05-15 13:07] LABS: HEPATITIS A IGM NEGATIVE (NEGATIVE); HEPATITIS B CORE AB NEGATIVE (NEGATIVE)
[2017-05-15 13:17] LABS: HEPATITIS C ANTIBODY NEGATIVE (NEGATIVE)
[2017-05-15] MEDS: Sodium Chloride 0.45% 1,000 ML IV SCH ×2 (14:25→22:21)
--- NOTE | 2017-05-15 15:08 | CP.PCM.PN ---
Subjective - Date & Time of Evaluation Date of Evaluation: 05/15/17 Time of Evaluation: 08:10 - Subjective Subjective: Patient seen and examined this AM at bedside. Patient reports pain is improved, denies nasuea and vomiting, fevers or chills. Tolerating a liquid diet. Objective - Vital Signs/Intake and Output Vital Signs (last 24 hours): Temp Pulse Resp BP Pulse Ox 98.3 F 64 20 147/78 97 05/15/17 00:54 05/15/17 05:39 05/15/17 00:54 05/15/17 00:54 05/15/17 00:54 Intake and Output: 05/15/17 05/15/17 06:59 18:59 Intake Total 900 300 Output Total 300 Balance 900 0 - Medications Medications: Current Medications Acetaminophen (Tylenol 325mg Tab) 650 mg PO Q6H PRN PRN Reason: Fever >100.4 F Last Admin: 05/14/17 08:03 Dose: 650 mg Apixaban (Eliquis) 5 mg PO BID [facility] PRN Reason: Protocol Last Admin: 05/15/17 09:56 Dose: 5 mg Docusate Sodium (Colace) 100 mg PO BID [facility] Sodium Chloride (Sodium Chloride 0.45%) 1,000 mls @ 75 mls/hr IV .[id number] [facility] Last Admin: 05/15/17 14:25 Dose: 75 mls/hr Meropenem/Sodium Chloride (Meropenem 1g/Ns 100ml Ivpb) 1 gm in 100 mls @ 100 mls/hr IVPB Q8 [facility] PRN Reason: Protocol Stop: 05/23/17 06:01 Last Admin: 05/15/17 14:24 Dose: 100 mls/hr Insulin Human Lispro (Humalog Med) 0 units SC ACHS [facility] PRN Reason: Protocol Last Admin: 05/15/17 13:20 Dose: Not Given Ondansetron HCl (Zofran Inj) 4 mg IVP Q6H PRN PRN Reason: Nausea/Vomiting Last Admin: 05/14/17 00:39 Dose: 4 mg Oseltamivir Phosphate (Tamiflu Cap) 75 mg PO BID [facility] PRN Reason: Protocol Stop: 05/18/17 18:52 Last Admin: 05/15/17 09:57 Dose: 75 mg Oxycodone/Acetaminophen (Percocet 5/325 Mg Tab) 1 tab PO Q6H PRN PRN Reason: pain,mod Stop: 05/17/17 10:37 Last Admin: 05/15/17 09:58 Dose: 1 tab Pantoprazole Sodium (Protonix Inj) 40 mg IVP DAILY [facility] Last Admin: 05/15/17 09:56 Dose: 40 mg Timolol Maleate (Timoptic 0.5% Ophth Soln) 1 drop OU BID [facility] Last Admin: 05/15/17 09:57 Dose: 1 drop Ursodiol (Actigall) 300 mg PO 0800 [facility] Last Admin: 05/15/17 09:56 Dose: 300 mg - Labs Labs: 05/15/17 08:00 05/15/17 08:00 PT 14.8 SECONDS (9.4-12.5) H 05/13/17 10:15 INR 1.28 (0.93-1.08) H 05/13/17 10:15 APTT 35.4 Seconds (25.1-36.5) 05/13/17 10:15 - Constitutional Appears: Non-toxic, No Acute Distress - Head Exam Head Exam: ATRAUMATIC, NORMOCEPHALIC - Eye Exam Eye Exam: Normal appearance. absent: Conjunctival injection, Scleral icterus - ENT Exam ENT Exam: Mucous Membranes Moist, Normal Oropharynx - Respiratory Exam Respiratory Exam: NORMAL BREATHING PATTERN. absent: Accessory Muscle Use, Respiratory Distress - GI/Abdominal Exam GI & Abdominal Exam: Soft, Tenderness (moderate LLQ tenderness). absent: Distended, Firm, Guarding, Rebound Additional comments: negative crowell's - Extremities Exam Extremities Exam: absent: Calf Tenderness, Pedal Edema, Tenderness - Neurological Exam Neurological Exam: Alert, Awake, Oriented x3 - Psychiatric Exam Psychiatric exam: Normal Affect, Normal Mood - Skin Skin Exam: Dry, Intact, Normal Color, Warm Assessment and Plan - Assessment and Plan (Free Text) Assessment: 81F with gastroenteritis vs choledocholithiaisis Plan: - GI recs: EUS/ERCP after patient is recovered from influenza - ADAT - LLQ pain--possibly due to constipation with opioid use. Will add colace - PRN nausea and pain medications - trend CBC/CMP - incentive spirometer - DVT ppx, protonix - No plans for surgical intervention at this point Discussed with Dr. Perla Diego, PGY2
--- NOTE | 2017-05-16 00:29 | PN ---
DATE: 05/15/2017 SUBJECTIVE: This patient was seen and evaluated earlier today. The patient is comfortable. No complaints of any abdominal pain. Tolerating the diet. PHYSICAL EXAMINATION: VITAL SIGNS: Temperature is 98.6, pulse 83, blood pressure is 135/69. HEENT: Atraumatic and anicteric. NECK: Supple. HEART: S1 and S2 heard. LUNGS: Bilateral air entry present. ABDOMEN: Soft. Bowel sounds present. EXTREMITIES: No cyanosis, no clubbing. LABORATORY DATA: Hemoglobin 11.2, hematocrit 34.6, WBC 2.9, platelets 239. BUN 8, creatinine 0.8. LFTs showed alkaline phosphatase 170, otherwise unremarkable. Hepatitis profile was negative. IMPRESSION: This is an 81-year-old patient admitted with flu and the patient also had an abdominal pain. The patient has dilated common bile duct, questionable distal common bile duct density. The patient would benefit from the endoscopic retrograde cholangiopancreatography at the tertiary care center. The patient is not a candidate for magnetic resonance cholangiopancreatography in view of the pacemaker. The patient is presently started back on Eliquis. Previous GI workup reviewed. Patients needs followup at [facility] for followup ERCP/EUS as outpatient Thank you very much for allowing us to participate in the care of the patient. Tania Guevara MD MTDCalin
--- NOTE | 2017-05-16 00:42 | PN ---
DATE: SUBJECTIVE: Patient is 81 years old, seen and examined, lying in bed, seems to be comfortable. No nausea, vomiting, or diarrhea. No fever, no chills. Eating and tolerating. Still has right upper quadrant discomfort. PHYSICAL EXAMINATION: VITAL SIGNS: She is afebrile, pulse 65, respirations 18, blood pressure 135/69. LUNGS: Bilateral fair airflow. No rhonchi or crackle. HEART: S1, S2 audible. ABDOMEN: Soft, slight epigastric and right upper quadrant discomfort. NEUROLOGICAL: She is awake, alert, oriented, communicative. LABORATORY DATA: WBC is 2.9, hemoglobin 11.2, hematocrit 34.6, platelet 239. Chemistry: Sodium 141, potassium 4.0, chloride 108, CO2 of 24, BUN 8, creatinine 0.8, blood sugar of 118, alkaline phosphatase is 170. Enterobacter aerogenes UTI, blood cultures are negative. Flu test is positive. ASSESSMENT: 1. Viral syndrome. 2. Urinary tract infection. 3. Cholelithiasis. 4. Chronic obstructive pulmonary disease. 5. Hypertension. PLAN: Currently, patient is on a liquid diet. She is on IV fluid. We will cut down her IV fluid to 60 mL since she started to tolerate her liquid food. We will advance her diet in a.m. and request for physical therapy. She has been restarted on Eliquis. Continue her on meropenem and oral Tamiflu. Silvio Smith MD
--- NOTE | 2017-05-16 01:51 | PN ---
DATE: 05/15/2017 SUBJECTIVE: Patient is in bed, in no acute distress, nontoxic. PHYSICAL EXAMINATION: VITAL SIGNS: Temperature is 98, blood pressure is 135/60, respiratory rate is 18, heart rate of 65. HEENT: Unremarkable. NECK: Supple. LUNGS: Have decreased breath sounds. HEART: Normal S1, S2. ABDOMEN: Soft, nontender. LABORATORY DATA: Reveals a white count of 2.9, hemoglobin of 11, platelets of 239. BUN of 8, creatinine of 0.8, urinalysis is noted. Serology is positive for influenza. Microbiology reveals Enterobacter aerogenes in the urine. The blood cultures are negative. PATIENT IS ALLERGIC TO PENICILLIN and the organism is resistant to Cipro. Urinalysis is negative. ASSESSMENT AND PLAN: An 81-year-old female with chronic obstructive lung disease, diabetes, hypertension, pulmonary emboli, diverticulitis, arthritis, deafness, gallstone, admitted with sepsis secondary to Influenza A and patient has biliary dilatation, cholelithiasis, and Enterobacter in the urine, currently on meropenem. CAT scan of the abdomen is noted. Patient is also on Tamiflu, recommend five days of Tamiflu, today is day number 2. Gastrointestinal workup including CAT scan findings is noted. Gastrointestinal recommends endoscopic ultrasound and endoscopic retrograde cholangiopancreatography. Dr. Smith's note is reviewed. Patient's fevers responded. Prominent dilatation of common hepatic and bile duct without cholelithiasis is our impression. We will follow with you. Antolin Urias MD
[2017-05-16] MEDS: Meropenem 1g/NS 100mL IVPB 1 GM/100 ML PIGGYBACK IVPB SCH ×3 (06:05→21:47)
[2017-05-16] MEDS: Insulin Lispro (humaLOG) MEDIUM Coverage SC SCH ×4 (08:25→21:53)
--- NOTE | 2017-05-16 10:11 | CP.PCM.PN ---
Subjective - Date & Time of Evaluation Date of Evaluation: 05/16/17 Time of Evaluation: 07:20 - Subjective Subjective: [place] seen and examined at bedside this AM. No adverse events overnight. Patient had 2 BM's yesterday, denies any pain in her abdomen, nausea, vomiting, is currently tolerating a liquid diet Objective - Vital Signs/Intake and Output Vital Signs (last 24 hours): Temp Pulse Resp BP Pulse Ox 98.6 F 83 18 135/69 98 05/15/17 17:05 05/15/17 18:00 05/15/17 17:05 05/15/17 17:05 05/15/17 17:05 - Medications Medications: Current Medications Acetaminophen (Tylenol 325mg Tab) 650 mg PO Q6H PRN PRN Reason: Fever >100.4 F Last Admin: 05/14/17 08:03 Dose: 650 mg Apixaban (Eliquis) 5 mg PO BID [facility] PRN Reason: Protocol Last Admin: 05/15/17 17:33 Dose: 5 mg Docusate Sodium (Colace) 100 mg PO BID [facility] Last Admin: 05/15/17 17:32 Dose: 100 mg Meropenem/Sodium Chloride (Meropenem 1g/Ns 100ml Ivpb) 1 gm in 100 mls @ 100 mls/hr IVPB Q8 [facility] PRN Reason: Protocol Stop: 05/23/17 06:01 Last Admin: 05/16/17 06:05 Dose: 100 mls/hr Sodium Chloride (Sodium Chloride 0.45%) 1,000 mls @ 60 mls/hr IV .[id number] [facility] Last Admin: 05/15/17 22:21 Dose: 60 mls/hr Insulin Human Lispro (Humalog Med) 0 units SC ACHS [facility] PRN Reason: Protocol Last Admin: 05/15/17 22:20 Dose: Not Given Ondansetron HCl (Zofran Inj) 4 mg IVP Q6H PRN PRN Reason: Nausea/Vomiting Last Admin: 05/14/17 00:39 Dose: 4 mg Oseltamivir Phosphate (Tamiflu Cap) 75 mg PO BID [facility] PRN Reason: Protocol Stop: 05/18/17 18:52 Last Admin: 05/15/17 17:34 Dose: 75 mg Oxycodone/Acetaminophen (Percocet 5/325 Mg Tab) 1 tab PO Q6H PRN PRN Reason: pain,mod Stop: 05/17/17 10:37 Last Admin: 05/15/17 09:58 Dose: 1 tab Pantoprazole Sodium (Protonix Inj) 40 mg IVP DAILY [facility] Last Admin: 05/15/17 09:56 Dose: 40 mg Timolol Maleate (Timoptic 0.5% Ophth Soln) 1 drop OU BID [facility] Last Admin: 05/15/17 17:35 Dose: 1 drop Ursodiol (Actigall) 300 mg PO 0800 [facility] Last Admin: 05/15/17 09:56 Dose: 300 mg - Labs Labs: 05/15/17 08:00 05/15/17 08:00 PT 14.8 SECONDS (9.4-12.5) H 05/13/17 10:15 INR 1.28 (0.93-1.08) H 05/13/17 10:15 APTT 35.4 Seconds (25.1-36.5) 05/13/17 10:15 - Constitutional Appears: Non-toxic, No Acute Distress - Head Exam Head Exam: ATRAUMATIC, NORMOCEPHALIC - Eye Exam Eye Exam: Normal appearance. absent: Conjunctival injection, Scleral icterus - ENT Exam ENT Exam: Mucous Membranes Moist, Normal Oropharynx - Respiratory Exam Respiratory Exam: NORMAL BREATHING PATTERN. absent: Accessory Muscle Use, Respiratory Distress - Cardiovascular Exam Cardiovascular Exam: RRR - GI/Abdominal Exam GI & Abdominal Exam: Soft, Tenderness (LLQ and RLQ), Rebound (LLQ). absent: Distended Additional comments: negative crowell's - Neurological Exam Neurological Exam: Alert, Awake, Oriented x3 - Psychiatric Exam Psychiatric exam: Normal Affect, Normal Mood - Skin Skin Exam: Dry, Intact, Normal Color, Warm Assessment and Plan - Assessment and Plan (Free Text) Assessment: 81F with abdominal pain and dilated common bile duct concerning for choledocholithiasis Plan: -LLQ abdominal pain likely d/t UTI vs gastroenteritis. Will contintue to monitor closely -GI rec: EUS when patient recovered from flu -Continue diet per GI recs -Continue PRN pain and nausea medication -antibiotics per primary Discussed with Dr. Perla Diego, PGY2
[2017-05-16] MEDS ORDERED: Iohexol 240 (50 ml) ONE (17:44)
--- NOTE | 2017-05-16 21:21 | PN ---
DATE: SUBJECTIVE: Patient is 81 years old, seen and examined, lying in bed, seems to be comfortable. No nausea, vomiting, diarrhea. Eating and tolerating. OBJECTIVE: VITAL SIGNS: Patient is afebrile, pulse 65, respirations 18, blood pressure 135/69. LUNGS: Bilateral good airflow. No rhonchi or crackle. HEART: S1, S2 audible. ABDOMEN: Soft, slight epigastric and right upper quadrant discomfort. NEUROLOGICAL: She is awake and alert, able to communicate, moves all extremities, has generalized weakness, unable to get out of bed without assistance. LABORATORY EXAM: Chemistry: Blood sugar is 118. ASSESSMENT: 1. Status post viral syndrome with high fever that has resolved. 2. Urinary tract infection. 3. Cholelithiasis. 4. Chronic obstructive pulmonary disease. 5. Hypertension. 6. Generalized weakness. PLAN: Currently patient is on IV fluid. She is on Actigall; continue that. She is on Eliquis. We will continue that and maintain her on meropenem, Protonix and Tamiflu. Follow up this patient in a.m. If it is okay with GI, we can advance her diet to low-fat diet since she is tolerating the liquid and not vomiting. Silvio Smith MD
--- NOTE | 2017-05-16 21:42 | CT ---
EXAM: CT Abdomen and Pelvis Without Intravenous Contrast EXAM DATE/TIME: 05/16/2017 4:12 PM CLINICAL HISTORY: 81 years old, female; Pain; Abdominal pain; Localized; Left lower quadrant (llq); Prior surgery; Surgery type: Colon resection; Additional info: Left lower tenderness TECHNIQUE: Axial computed tomography images of the abdomen and pelvis without intravenous contrast. All CT scans at this facility use one or more dose reduction techniques, viz.: automated exposure control; ma/kV adjustment per patient size (including targeted exams where dose is matched to indication; i.e. head); or iterative reconstruction technique. Coronal and sagittal reformatted images were created and reviewed. COMPARISON: Prior CT abdomen and pelvis of 05/13/2017 FINDINGS: LIMITATIONS: Mild to moderate streak/motion artifact. LOWER THORAX: Tiny bilateral pleural effusions. In ABDOMEN: LIVER: No acute abnormality of the liver identified. GALLBLADDER AND BILE DUCTS: Abnormal dilatation of the common bile duct, which measures up to 1 cm in diameter. Best seen on image 62 of series 3, there is a faint rounded density in the lumen of the distal common bile duct, measuring 1.4 cm, and cannot exclude a faint radiodense bile duct stone or lesion. PANCREAS: No CT evidence of acute pancreatitis. SPLEEN: No acute abnormality of the spleen identified. ADRENALS: No acute abnormality of the adrenal glands identified. KIDNEYS AND URETERS: Bilateral renal vascular calcifications. No evidence of hydroureteronephrosis. STOMACH AND BOWEL: Surgical suture line/surgical anatomosis is noted in the sigmoid colon and. Otherwise, no significant abnormality of the bowel is identified, allowing for motion artifact. No evidence of bowel obstruction. APPENDIX: Appendix is seen, and is within normal limits in appearance. PELVIS: BLADDER: Bladder is mildly dilated. REPRODUCTIVE:No acute abnormality of the reproductive organs is seen. No acute abnormality of the uterus identified. No evidence of large adnexal masses. ABDOMEN and PELVIS: INTRAPERITONEAL SPACE: Tiny amount of free fluid in the cul-de-sac. This is an abnormal finding in a postmenopausal patient. No evidence of free air. BONES/JOINTS: Bony structures appear demineralized. SOFT TISSUES: Postsurgical changes involving the anterior abdominal wall, which are most likely related to previous hernia repair. VASCULATURE: No evidence of abdominal aortic aneurysm. LYMPH NODES: No evidence of diffuse lymphadenopathy. IMPRESSION: - Findings similar to a CT done 3 days prior. - Dilatation of the common bile duct, with a faint 1.4 cm density in the lumen of the distal common bile duct, which could represent a faint bile duct stone or lesion. Further workup is recommended, such as with right upper quadrant ultrasound or MRCP, unless otherwise clinically indicated. - Tiny amount of pelvic free fluid. - Tiny bilateral pleural effusions. - Otherwise, no evidence of significant acute process. - See above for remaining findings.
--- NOTE | 2017-05-16 21:49 | PN ---
DATE: 05/16/2017 SUBJECTIVE: The patient is in bed, in no acute distress, nontoxic. PHYSICAL EXAMINATION: VITAL SIGNS: Temperature is 98, blood pressure is 135/60, respiratory rate of 18, heart rate of 65. HEENT: Unremarkable. NECK: Supple. LUNGS: Have decreased breath sounds. Heart: Normal S1, S2. ABDOMEN: Soft. She did have a left lower quadrant tenderness. LABORATORY DATA: Reveals the patient does have Enterobacter aerogenes on the urine culture. Blood cultures are negative. The patient is on meropenem and Tamiflu. The patient did have a CAT scan of the abdomen and pelvis, which is noted. Dr. Kourtney Baldwin's note is reviewed from today. Concerned about bile duct dilatation and cholelithiasis. Dr. Guevara's note is reviewed. ASSESSMENT AND PLAN: This is an 81-year-old female who is seen earlier today in 370, bed 1 with a history of chronic obstructive lung disease, diabetes, hypertension, pulmonary emboli, diverticulitis, arthritis, deafness, gallstones, admitted with sepsis secondary to influenza A, found to have biliary dilatation on CAT scan and also has Enterobacter in the urine, does have left lower quadrant tenderness on exam this morning. We will continue the meropenem and Tamiflu. May consider repeating the CAT scan and thus far, the blood cultures are negative. The patient does have Enterobacter; however, the urinalysis was not a significant urinalysis. There are many bacteria, positive nitrites, concerned about pyelonephritis and/or renal stone, although rbc's are negative. We will request a repeat urinalysis and urine culture stat and a repeat CT scan of the abdomen and pelvis. The left lower quadrant pain and biliary findings are not consistent with a positive urine culture and the patient was found to have influenza A. We will repeat a CAT scan of the abdomen and pelvis with p.o. contrast. The patient did have a CAT scan on the 05/13/2017, 3 days ago with IV contrast only. Antolin Urias MD
--- NOTE | 2017-05-16 22:48 | PN ---
DATE: 05/16/2017 SUBJECTIVE: This patient was seen and evaluated earlier today. The patient's son was at bedside. PHYSICAL EXAMINATION: VITAL SIGNS: Temperature is 98.6, pulse 83, blood pressure 135/69. HEENT: Atraumatic, anicteric. NECK: Supple. HEART: S1 and S2 heard. LUNGS: Bilateral air entry present. ABDOMEN: Soft. There is mild tenderness on deep palpation in the epigastric area, otherwise unremarkable. EXTREMITIES: No cyanosis, no clubbing. LABORATORY DATA: There is no recent labs now. IMPRESSION AND PLAN: This is an 81-year-old patient admitted with flu. Also complaints of an abdominal pain. The patient is also on Tamiflu, antibiotic as per Infectious Disease. I had a detailed discussion with the patient's son. The plan is to consider the patient for a workup in a tertiary care center. The previous GI workup was also discussed with the patient's family, the patient and the patient's son. Other comorbidities include chronic obstructive pulmonary disease, hypertension, history of deep venous thrombosis, history of deep venous thrombosis and pulmonary embolism in the past, on Eliquis. Presently has urinary tract infection, on antibiotics. Thank you very much for allowing me to participate in the care of the patient. Tania Guevara MD
[2017-05-17] MEDS: Sodium Chloride 0.45% 1,000 ML IV SCH (05:02)
[2017-05-17 05:11] LABS: PH,URINE 6.5 (4.7-8.0); URINE BILIRUBIN NEGATIVE (NEGATIVE); URINE BLOOD TRACE-INTACT (NEGATIVE); URINE GLUCOSE (UA) NEGATIVE (NEGATIVE); URINE LEUKOCYTE ESTERASE NEGATIVE Leu/uL (NEGATIVE); URINE NITRATE NEGATIVE (NEGATIVE); URINE PROTEIN NEGATIVE mg/dL (<30 mg/dL); URINE UROBILINOGEN 0.2 E.U./dL (<1 E.U./dL)
[2017-05-17 05:14] LABS: URINE COLOR YELLOW (YELLOW)
[2017-05-17 05:15] LABS: URINE APPEARANCE CLEAR (CLEAR)
[2017-05-17] MEDS: Meropenem 1g/NS 100mL IVPB 1 GM/100 ML PIGGYBACK IVPB SCH ×2 (05:26→15:00)
[2017-05-17 05:36] LABS: URINE BACTERIA FEW (NEG); URINE EPITHELIAL CELLS 0 - 2 /hpf (0-5); URINE WBC 0 - 2 /hpf (0-6)
[2017-05-17 09:20] VITALS: BP 140/80; PULSE 60; RESP 19; TEMP 97.6; O2SAT 99
--- NOTE | 2017-05-17 09:45 | CP.PCM.PN ---
Subjective - Date & Time of Evaluation Date of Evaluation: 05/17/17 Time of Evaluation: 09:42 - Subjective Subjective: General surgery progress note Patient seen and examined at bedside, is doing well without complaints. Tolerating diet, denies nausea vomiting diarrhea. Objective - Vital Signs/Intake and Output Vital Signs (last 24 hours): Temp Pulse Resp BP Pulse Ox 97.6 F 60 19 140/80 99 05/17/17 09:19 05/17/17 09:19 05/17/17 09:19 05/17/17 09:19 05/17/17 09:19 - Medications Medications: Current Medications Acetaminophen (Tylenol 325mg Tab) 650 mg PO Q6H PRN PRN Reason: Fever >100.4 F Last Admin: 05/16/17 15:22 Dose: 650 mg Apixaban (Eliquis) 5 mg PO BID [facility] PRN Reason: Protocol Last Admin: 05/16/17 17:39 Dose: 5 mg Docusate Sodium (Colace) 100 mg PO BID [facility] Last Admin: 05/16/17 17:40 Dose: Not Given Meropenem/Sodium Chloride (Meropenem 1g/Ns 100ml Ivpb) 1 gm in 100 mls @ 100 mls/hr IVPB Q8 [facility] PRN Reason: Protocol Stop: 05/23/17 06:01 Last Admin: 05/17/17 05:26 Dose: 100 mls/hr Sodium Chloride (Sodium Chloride 0.45%) 1,000 mls @ 60 mls/hr IV .[id number] [facility] Last Admin: 05/17/17 05:02 Dose: 60 mls/hr Insulin Human Lispro (Humalog Med) 0 units SC ACHS [facility] PRN Reason: Protocol Last Admin: 05/16/17 21:53 Dose: Not Given Ondansetron HCl (Zofran Inj) 4 mg IVP Q6H PRN PRN Reason: Nausea/Vomiting Last Admin: 05/16/17 19:42 Dose: 4 mg Oseltamivir Phosphate (Tamiflu Cap) 75 mg PO BID [facility] PRN Reason: Protocol Stop: 05/18/17 18:52 Last Admin: 05/16/17 17:39 Dose: 75 mg Oxycodone/Acetaminophen (Percocet 5/325 Mg Tab) 1 tab PO Q6H PRN PRN Reason: pain,mod Stop: 05/17/17 10:37 Last Admin: 05/15/17 09:58 Dose: 1 tab Pantoprazole Sodium (Protonix Inj) 40 mg IVP DAILY [facility] Last Admin: 05/16/17 10:33 Dose: 40 mg Timolol Maleate (Timoptic 0.5% Ophth Soln) 1 drop OU BID [facility] Last Admin: 05/16/17 17:42 Dose: 1 drop Ursodiol (Actigall) 300 mg PO 0800 [facility] Last Admin: 05/16/17 10:33 Dose: 300 mg - Labs Labs: 05/15/17 08:00 05/15/17 08:00 PT 14.8 SECONDS (9.4-12.5) H 05/13/17 10:15 INR 1.28 (0.93-1.08) H 05/13/17 10:15 APTT 35.4 Seconds (25.1-36.5) 05/13/17 10:15 - Constitutional Appears: Well - Head Exam Head Exam: ATRAUMATIC, NORMAL INSPECTION, NORMOCEPHALIC - Eye Exam Eye Exam: EOMI, Normal appearance, PERRL Pupil Exam: NORMAL ACCOMODATION, PERRL - ENT Exam ENT Exam: Mucous Membranes Moist, Normal Exam - Neck Exam Neck Exam: Full ROM, Normal Inspection. absent: Lymphadenopathy - Respiratory Exam Respiratory Exam: Clear to Ausculation Bilateral, NORMAL BREATHING PATTERN - Cardiovascular Exam Cardiovascular Exam: REGULAR RHYTHM, +S1, +S2. absent: Murmur - GI/Abdominal Exam GI & Abdominal Exam: Soft, Normal Bowel Sounds. absent: Tenderness - Extremities Exam Extremities Exam: Full ROM, Normal Capillary Refill, Normal Inspection. absent : Joint Swelling, Pedal Edema - Back Exam Back Exam: NORMAL INSPECTION - Neurological Exam Neurological Exam: Alert, Awake, CN II-XII Intact, Normal Gait, Oriented x3 - Psychiatric Exam Psychiatric exam: Normal Affect, Normal Mood - Skin Skin Exam: Dry, Intact, Normal Color, Warm Assessment and Plan - Assessment and Plan (Free Text) Assessment: Assessment and Plan 81F with abdominal pain and dilated common bile duct concerning for choledocholithiasis Plan: -LLQ abdominal pain likely d/t UTI vs gastroenteritis. Will contintue to monitor closely -GI rec: EUS when patient recovered from flu -Continue diet per GI recs -Continue PRN pain and nausea medication -antibiotics per primary -rest of recs per Dr. Duncan
[2017-05-17] MEDS: Insulin Lispro (humaLOG) MEDIUM Coverage SC SCH ×3 (10:34→17:15)
--- NOTE | 2017-05-17 16:09 | CP.PCM.PN ---
Subjective - Date & Time of Evaluation Date of Evaluation: 05/17/17 Time of Evaluation: 11:15 - Subjective Subjective: Comfortable, less abdominal pain, no diarrhea. No fevers. Objective - Vital Signs/Intake and Output Vital Signs (last 24 hours): Temp Pulse Resp BP Pulse Ox 97.6 F 60 19 140/80 99 05/17/17 09:19 05/17/17 09:19 05/17/17 09:19 05/17/17 09:19 05/17/17 09:19 - Medications Medications: Current Medications Acetaminophen (Tylenol 325mg Tab) 650 mg PO Q6H PRN PRN Reason: Fever >100.4 F Last Admin: 05/16/17 15:22 Dose: 650 mg Apixaban (Eliquis) 5 mg PO BID [facility] PRN Reason: Protocol Last Admin: 05/17/17 10:33 Dose: 5 mg Docusate Sodium (Colace) 100 mg PO BID [facility] Last Admin: 05/17/17 10:33 Dose: 100 mg Meropenem/Sodium Chloride (Meropenem 1g/Ns 100ml Ivpb) 1 gm in 100 mls @ 100 mls/hr IVPB Q8 [facility] PRN Reason: Protocol Stop: 05/23/17 06:01 Last Admin: 05/17/17 05:26 Dose: 100 mls/hr Sodium Chloride (Sodium Chloride 0.45%) 1,000 mls @ 60 mls/hr IV .[id number] [facility] Last Admin: 05/17/17 05:02 Dose: 60 mls/hr Insulin Human Lispro (Humalog Med) 0 units SC ACHS [facility] PRN Reason: Protocol Last Admin: 05/17/17 10:34 Dose: Not Given Ondansetron HCl (Zofran Inj) 4 mg IVP Q6H PRN PRN Reason: Nausea/Vomiting Last Admin: 05/16/17 19:42 Dose: 4 mg Oseltamivir Phosphate (Tamiflu Cap) 75 mg PO BID [facility] PRN Reason: Protocol Stop: 05/18/17 18:52 Last Admin: 05/17/17 10:35 Dose: 75 mg Pantoprazole Sodium (Protonix Inj) 40 mg IVP DAILY [facility] Last Admin: 05/17/17 10:35 Dose: 40 mg Timolol Maleate (Timoptic 0.5% Ophth Soln) 1 drop OU BID [facility] Last Admin: 05/17/17 10:36 Dose: 1 drop Ursodiol (Actigall) 300 mg PO 0800 [facility] Last Admin: 05/17/17 10:33 Dose: 300 mg - Labs Labs: 05/15/17 08:00 05/15/17 08:00 PT 14.8 SECONDS (9.4-12.5) H 05/13/17 10:15 INR 1.28 (0.93-1.08) H 05/13/17 10:15 APTT 35.4 Seconds (25.1-36.5) 05/13/17 10:15 - Constitutional Appears: Non-toxic, Chronically Ill - Head Exam Head Exam: NORMAL INSPECTION - Respiratory Exam Respiratory Exam: Decreased Breath Sounds - Cardiovascular Exam Cardiovascular Exam: +S1, +S2 - GI/Abdominal Exam GI & Abdominal Exam: Soft. absent: Tenderness Assessment and Plan - Assessment and Plan (Free Text) Plan: Assessment Sepsis due to Influenza A, R/O UTI dilated CBD will need ERCP Plan continue Merrem and Tamiflu day 4 patient should get ERCP
--- NOTE | 2017-05-18 15:49 | DS ---
HISTORY OF PRESENT ILLNESS: The patient is an 81-year-old who was brought to the emergency room because of high-grade fever, she spiked fever up to 101.9. She was positive for flu. She was started on Tamiflu. The patient also is complaining of abdominal discomfort, so she had CT scan of the abdomen and pelvis done that showed cholelithiasis with slight dilatation of common bile duct. Dr. Guevara was consulted, who recommended system settle down, she should be followed in [facility] for possible ERCP and stent placement. Patient stayed in isolation. She was given Tamiflu; however, initially was on IV fluids and liquid diet that was transitioned to low-fat diet that she was tolerating. No nausea, vomiting. No diarrhea. No fever or chills. PHYSICAL EXAMINATION: GENERAL: She is awake, alert, oriented, and able to communicate. VITAL SIGNS: The patient is afebrile, pulse 50, respirations 19, blood pressure 140/80. LUNGS: Bilateral fair airflow. No rhonchi or crackle. HEART: S1, S2 audible. ABDOMEN: Soft, nontender. No rebound, no guarding. NEUROLOGIC: The patient is awake and alert, able to communicate. LABORATORY EXAM: Blood sugar is 137. ASSESSMENT: 1. Status post viral syndrome. 2. Cholelithiasis. 3. Hypertension. 4. Chronic obstructive pulmonary disease. 5. Cholidocholithiasis. PLAN: The patient was given Tamiflu for a total of 4 days. She seemed to be doing well, tolerating food, so she will be discharged home on Tamiflu. She is advised to follow up with GI in [facility] for possible ERCP and stent placement. Silvio Smith MD
== END 2017-05-17 19:31 | disposition home health service (06) | DRG 872 ==
LOC: ED 09:08 → ERH 13:57 → 3RSO 15:01 → 3RNO 05-17 10:21
PROVIDERS: ADMIT Internal Medicine; ATTEND Internal Medicine
DX: A41.89 Other specified sepsis (principal); J10.1 Influenza due to other identified influenza virus with other respiratory manifestations; N39.0 Urinary tract infection, site not specified; K80.21 Calculus of gallbladder without cholecystitis with obstruction; K52.9 Noninfective gastroenteritis and colitis, unspecified; B96.89 Other specified bacterial agents as the cause of diseases classified elsewhere; J44.9 Chronic obstructive pulmonary disease, unspecified; I10 Essential (primary) hypertension; E11.9 Type 2 diabetes mellitus without complications; H91.93 Unspecified hearing loss, bilateral; E78.00 Pure hypercholesterolemia, unspecified; M19.90 Unspecified osteoarthritis, unspecified site; G47.30 Sleep apnea, unspecified; Z86.711 Personal history of pulmonary embolism; Z87.891 Personal history of nicotine dependence; Z79.84 Long term (current) use of oral hypoglycemic drugs; Z97.4 Presence of external hearing-aid; Z86.718 Personal history of other venous thrombosis and embolism; Z95.0 Presence of cardiac pacemaker; Z79.01 Long term (current) use of anticoagulants; Z88.0 Allergy status to penicillin

== ENCOUNTER 2017-06-08 10:07 | Inpatient (IN) | payer MEDICARE, OTHER ==
--- NOTE | 2017-06-08 11:11 | ED PDOC ---
Arrival/HPI - General Historian: Patient, Family - History of Present Illness Time/Duration: Prior to Arrival, 4-6 hours Symptom Onset: Sudden Symptom Course: Improving Quality: Cramping, Fullness, Gas Like Severity Level: 8 Activities at Onset: Rest Context: Sitting - General Chief Complaint: GI Problem Time Seen by Provider: 06/08/17 10:10 - History of Present Illness Narrative History of Present Illness (Text): 06/08/17 10:53 81F pmhx significant for HTN, cholelithiasis, choledocolithiasis, DVT, pacemaker , on Eliquis, presents to [facility] ED for generalized abd pain localized to mid- epigastric and radiates to the left side of the chest that started earlier this morning. Patient has had similar symptoms in the past that has been going on for a number of years ago. Currently feeling fatigued and subjective fevers. Had one episode of non-bloody, non-bilious vomiting at 03:00 this am. Denies changes in urinary habits, or changes in BM. Recently cleared by pulmn for ERCP. Of note: 2 years prior diagnosed w/ cholelithiasis put on actigall w/ relief of symptoms for greater than 1 year. patient was recently admitted for influenza approximately 4 weeks ago. work up for abd pain showed choledocolithiasis. Patient is scheduled to have EGD/ERCP on the . Last took Eliquis yesterday. Currently afebrile, normotensive, HR WNL. PMD: Dr. Jenkins GI: Dr. 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 Ambulates w/ walker and cane. hx of smoking, social eoth, denies recreational drug use Request for GI consult is for abdominal pain/gallbladder distention. (Usama Lewis) Past Medical History - Provider Review Nursing Documentation Reviewed: Yes - Travel History Have you recently traveled outside [place] w/in the past 3 mons?: No - Infectious Disease Hx of Infectious Diseases: None - Cardiac Hx Cardiac Disorders: Yes Hx Hypertension: Yes Other/Comment: Pacemaker - Pulmonary Hx Respiratory Disorders: Yes Hx Chronic Obstructive Pulmonary Disease (COPD): Yes - Neurological Hx Neurological Disorder: No - HEENT Hx HEENT Disorder: Yes (WEARS RX GLASSES) Hx Deafness: Yes (BILATERAL HEARING AIDE) - Renal Hx Renal Disorder: No - Endocrine/Metabolic Hx Endocrine Disorders: Yes Hx Diabetes Mellitus Type 2: Yes - Hematological/Oncological Hx Blood Disorders: No - Integumentary Hx Dermatological Disorder: No - Musculoskeletal/Rheumatological Hx Musculoskeletal Disorders: No Hx Falls: No - Gastrointestinal Hx Gastrointestinal Disorders: Yes (CHOLELITHIASIS,CHOLECYSTITIS,INCISIONAL HERNIA) Hx Diverticulitis: Yes (s/p resection) Hx Gall Bladder Disease: (gallstones) Hx Gastroesophageal Reflux: Yes Other/Comment: HEMORRHOIDS - Genitourinary/Gynecological Hx Genitourinary Disorders: Yes (CEASEREAN,CYST IN FALLOPIAN TUBE) Hx Bladder Stone: Yes - Psychiatric Hx Psychophysiologic Disorder: No Hx Substance Use: No - Surgical History Other/Comment: colon resection for diverticulitis, pacemaker placement, vericose veins, c section, cyst in fallopian tube, incisional hernia - Anesthesia Hx Anesthesia Reactions: Yes (DECREASED O2 SAT AND HR, DIFFICULT TO AROUSE) - Suicidal Assessment Feels Threatened In Home Enviroment: No Family/Social History - Physician Review Nursing Documentation Reviewed: Yes Family/Social History: Other (non-contributory) Smoking Status: Never Smoked Hx Alcohol Use: No Hx Substance Use: No Allergies/Home Meds Allergies/Adverse Reactions: Allergies Penicillins Adverse Reaction (Verified 06/08/17 10:20) RASH Home Medications: Home Meds Medication Instructions Recorded Confirmed Apixaban [Eliquis] 5 mg PO 05/13/17 Cholecalciferol (Vitamin D3) 1,000 unit PO 05/13/17 [Vitamin D3] Ezetimibe [Zetia] 10 mg PO DAILY 05/13/17 05/13/17 Furosemide [Lasix] 20 mg PO DAILY 05/13/17 05/13/17 Gabapentin [Neurontin] 300 mg PO 05/13/17 Lisinopril [Zestril] 2.5 mg PO DAILY 05/13/17 05/13/17 Metoprolol Tartrate [Lopressor] 25 mg PO 05/13/17 Pantoprazole [Protonix EC Tab] 40 mg PO DAILY 05/13/17 05/13/17 Timolol 0.5% Ophth [Timoptic 0.5% ml OP 05/13/17 Ophth Soln] metFORMIN [glucOPHAGE] 1,000 mg PO 05/13/17 metFORMIN [glucOPHAGE] 500 mg PO 05/13/17 oxyCODONE/Acetaminophen [Percocet 1 tab PO PRN PRN 05/13/17 05/13/17 5/325 mg Tab] Review of Systems - Physician Review All systems were reviewed & negative as marked: Yes - Review of Systems Constitutional: Fatigue. absent: Weight Change, Fevers, Night Sweats Eyes: absent: Vision Changes, Photophobia, Eye Pain ENT: absent: Hearing Changes, Tinnitus, Sore Throat, Rhinorrhea Respiratory: absent: SOB, Cough, Sputum Cardiovascular: Chest Pain (mid-epigastric), Calf Pain (chronic 2/2 diabetic neuropathy). absent: Palpitations, Edema Gastrointestinal: Abdominal Pain (generalized localzied Mid-epigastrum), Vomiting. absent: Constipation, Diarrhea, Nausea Musculoskeletal: absent: Arthralgias Skin: Normal. absent: Rash, Pruritis Neurological: Normal. absent: Headache, Dizziness Endocrine: absent: Diaphoresis Physical Exam Vital Signs Reviewed: Yes Temperature: Afebrile Blood Pressure: Normal Pulse: Regular Respiratory Rate: Normal Appearance: Positive for: Well-Appearing, Non-Toxic, Comfortable Pain Distress: None Mental Status: Positive for: Alert and Oriented X 3 Finger Stick Blood Glucose: 199 - Systems Exam Head: Present: Atraumatic, Normocephalic Pupils: Present: PERRL Extroacular Muscles: Present: EOMI Conjunctiva: Present: Normal Mouth: Present: Moist Mucous Membranes Neck: Present: Normal Range of Motion. No: MIDLINE TENDERNESS, JVD Respiratory/Chest: Present: Clear to Auscultation, Good Air Exchange. No: Respiratory Distress, Accessory Muscle Use, Wheezes, Retracting, Rhonchi Cardiovascular: Present: Irregular Rhythm. No: Murmurs, Tachycardic, Bradycardic Abdomen: Present: Tenderness, Normal Bowel Sounds, Guarding (voluntary). No: Distention, Peritoneal Signs, Rebound, Rovsing's Sign Present Back: Present: CVA Tenderness Upper Extremity: Present: Normal Inspection, NORMAL PULSES. No: Edema Lower Extremity: Present: Normal Inspection, Edema (pt states normal size), CALF TENDERNESS Neurological: Present: GCS=15 Skin: Present: Warm, Dry. No: Rashes Psychiatric: Present: Alert, Oriented x 3 Vital Signs Temp Pulse Resp BP Pulse Ox 06/08/17 13:36 98.7 F 60 18 132/61 99 06/08/17 10:25 97.7 F 74 19 110/59 L 97 06/08/17 10:20 97.7 F 74 19 110/59 L 97 Medical Decision Making - EKG Interpretation Interpreted by ED Physician: Yes Type: 12 lead EKG Comparison: Different from prev. EKG ED Course and Treatment: A 81 year old female with abdominal pain. In agreement with resident note, which includes further HPI details. Patient was seen and evaluated with resident , came up with plan and treatment together. Patient with abdominal pain, rule out Cholecystitis vs. Biliary colic vs. Chololithiasis EKG shows atrial fibrillation at 90 BPM with paced rhythm, no changes compared to prior on 05/13/17. Interpreted by me. (Meliton Youssef) 06/08/17 11:15 CBC/CMP/D.Bili/Lipase US of abd and LE B/L Pepcid IVF (Usama Lewis) - Lab Interpretations Lab Results: 06/08/17 10:59 06/08/17 10:59 Lab Results 06/08/17 12:20: PT 14.1 H, INR 1.22 H, APTT 30.5 06/08/17 10:59: Sodium 143, Potassium 4.0, Chloride 108 H, Carbon Dioxide 23, Anion Gap 16, BUN 21, Creatinine 1.1, Est GFR ( Amer) 58, Est GFR (Non- Af Amer) 48, Random Glucose 202 H, Calcium 10.4, Total Bilirubin 1.9 H, Direct Bilirubin 1.6 H, AST 309 H D, ALT 202 H, Alkaline Phosphatase 141 H, Total Protein 7.8, Albumin 4.0, Globulin 3.8, Albumin/Globulin Ratio 1.1, Lipase 86 06/08/17 10:59: WBC 8.7 D, RBC 4.08, Hgb 12.4, Hct 38.4, MCV 94.1, MCH 30.4, MCHC 32.3, RDW 13.4, Plt Count 163, MPV 10.4, Gran % 87.2 H, Lymph % (Auto) 6.1 L, Evangeline % (Auto) 6.6 H, Eos % (Auto) 0.0 L, Baso % (Auto) 0.1, Gran # 7.62 H, Lymph # (Auto) 0.5 L, Evangeline # (Auto) 0.6, Eos # (Auto) 0.0, Baso # (Auto) 0.01 06/08/17 10:36: POC Glucose (mg/dL) 199 H - RAD Interpretation Radiology Orders: 06/08/17 10:29 CHEST PORTABLE [RAD] Stat 06/08/17 10:43 ABDOMEN COMPLETE [US] Stat DUPLEX LOWER EXTRM VEIN BILAT [US] Stat - EKG Interpretation EKG Interpretation (Text): 06/08/17 11:17 A-Fib, no pacing noticed on EKG (Usama Lewis) - Medication Orders Current Medication Orders: Sodium Chloride (Sodium Chloride 0.9%) 1,000 mls @ 100 mls/hr IV .Q10H ONE Stop: 06/08/17 23:02 Last Admin: 06/08/17 13:29 Dose: 100 mls/hr Discontinued Medications Famotidine (Pepcid) 20 mg IVP STAT STA Stop: 06/08/17 10:46 Last Admin: 06/08/17 12:18 Dose: 20 mg IVP Administration Document 06/08/17 12:18 [email or web address] (Rec: 06/08/17 12:[id number]) Charges for Administration # of IVP Administrations 1 Sodium Chloride (Sodium Chloride 0.9%) 1,000 mls @ 999 mls/hr IV .Q1H1M STA Stop: 06/08/17 12:18 Last Admin: 06/08/17 12:19 Dose: 999 mls/hr eMAR Start Stop Document 06/08/17 12:19 [email or web address] (Rec: 06/08/17 12:19 [id number]) Intravenous Solution Start Date 06/08/17 Start Time 12:19 End Date 06/08/17 Ketorolac Tromethamine (Toradol) 15 mg IVP STAT STA Stop: 06/08/17 13:07 Last Admin: 06/08/17 13:27 Dose: 15 mg Disposition/Present on Arrival - Present on Arrival Any Indicators Present on Arrival: No History of DVT/PE: No History of Uncontrolled Diabetes: No Urinary Catheter: No History of Decub. Ulcer: No History Surgical Site Infection Following: None - Disposition Have Diagnosis and Disposition been Completed?: Yes Disposition Time: 13:57 Patient Plan: Admission - Disposition Diagnosis: Abdominal pain, Choledocholithiasis Disposition: HOSPITALIZED Condition: STABLE Referrals: Clare Jenkins DO [Primary Care Provider] - Follow up with primary Forms: [employer] (Mauritian)
[2017-06-08] MEDS ORDERED: Sodium Chloride 0.9% 1,000 ML IV STA (11:18)
[2017-06-08 11:29] LABS: ALB/GLOB RATIO 1.1 (1.1-1.8); BILIRUBIN,DIRECT 1.6 mg/dL (0.0-0.4); CALCIUM 10.4 mg/dL (8.4-10.5)
[2017-06-08 11:30] LABS: BASO # 0.01 K/mm3 (0.0-2.0); BASO % 0.1 % (0.0-3.0); GRAN # 7.62 (1.4-6.5); GRAN % 87.2 % (50.0-68.0); HEMOGLOBIN 12.4 g/dL (12.0-16.0); LYMPH # 0.5 (1.2-3.4); LYMPH % 6.1 % (22.0-35.0); MEAN CELL VOLUME 94.1 fl (80.0-105.0); MEAN CORPUSCULAR HEMOGLOBIN 30.4 pg (25.0-35.0); MEAN CORPUSCULAR HGB CONC 32.3 g/dl (31.0-37.0); MEAN PLATELET VOLUME 10.4 fl (7.0-11.0); MONO # 0.6 (0.1-0.6); MONO % 6.6 % (1.0-6.0); RBC 4.08 10^6/uL (3.5-6.1); RED CELL DISTRIBUTION WIDTH 13.4 % (11.5-14.5); WHITE BLOOD COUNT 8.7 10^3/ul (4.5-11.0)
--- NOTE | 2017-06-08 12:09 | RAD ---
HISTORY: chest pain COMPARISON: No prior. FINDINGS: LUNGS: No active pulmonary disease. PLEURA: No significant pleural effusion identified, no pneumothorax apparent. CARDIOVASCULAR: Normal. OSSEOUS STRUCTURES: No significant abnormalities. VISUALIZED UPPER ABDOMEN: Normal. OTHER FINDINGS: Dual lead pacemaker IMPRESSION: No active disease.
[2017-06-08 12:42] LABS: INR 1.22 (0.93-1.08); PARTIAL THROMBOPLASTIN TIME 30.5 Seconds (25.1-36.5)
[2017-06-08 12:43] LABS: PROTHROMBIN TIME 14.1 SECONDS (9.4-12.5)
[2017-06-08] MEDS ORDERED: Sodium Chloride 0.9% 1,000 ML IV ONE (13:03)
--- NOTE | 2017-06-08 13:04 | US ---
HISTORY: Mid-Epigastric tenderness COMPARISON: Prior abdomen ultrasound examination 05/13/2017 [address] abdomen and pelvis CT exam 05/16/2017. TECHNIQUE: Sonographic evaluation of the abdomen. FINDINGS: LIVER: Measures 16.9 cm. Normal echogenicity of the liver parenchyma. No mass. No intrahepatic bile duct dilatation. GALLBLADDER: Moderate gallbladder distention is appreciated without mural thickening or definitive pattern of pericholecystic fluid. No cholelithiasis or report of sonographic Nava's sign. COMMON BILE DUCT: Measures 9.7 mm. No stones. No signal change greater prior abdomen ultrasound noted above. PANCREAS: Pancreas not identified due to overlying bowel or stomach gas. RIGHT KIDNEY: Measures 9.0cm. No obstructive uropathy or urolithiasis is identified. Corticomedullary differentiation is limited either from intrinsic medical renal disease densely or possibly body habitus. LEFT KIDNEY: Measures 9.3cm. No obstructive uropathy or urolithiasis is identified. Corticomedullary differentiation is limited either from intrinsic medical renal disease densely or possibly body habitus. SPLEEN: Normal in size and contour, 8.0 cm. No mass. AORTA: Obscured by overlying bowel gas. IVC: Unremarkable. OTHER FINDINGS: None. IMPRESSION: Persistent dilatation of the common bile duct without choledocholithiasis, measuring 9.7 mm as compared prior and ultrasound exam 05/13/2017. Gallbladder is mildly distended but otherwise appears unremarkable. No cholelithiasis. Pancreas is obscured clearly by overlying bowel or stomach gas. Potential intrinsic medical renal disease involving the kidneys. No obstructive uropathy bilaterally.
--- NOTE | 2017-06-08 14:01 | CARD ---
APPROVED REPORT EKG Measurement Heart [id number] <Conclusion> Atrial fibrillation with premature ventricular or aberrantly conducted complexes Abnormal ECG
--- NOTE | 2017-06-08 15:37 | US ---
HISTORY: Leg pain and swelling. Evaluate for DVT PHYSICIAN(S): Mario Day MD. TECHNIQUE: Duplex sonography and color-flow Doppler with graded compression were used to evaluate the deep venous systems of both lower extremities. FINDINGS: The visualized deep venous systems of both lower extremities are sonographically normal and compressible. Normal wave forms and augmentation are seen. There is no sonographic evidence for deep venous thrombosis in the visualized segments of both lower extremities. IMPRESSION: No sonographic evidence for deep venous thrombosis in the visualized segments of both lower extremities.
--- NOTE | 2017-06-08 15:37 | CP.PCM.CON ---
History of Present Illness - History of Present Illness History of Present Illness: General Surgery consult for Dr. Duncan Consulted for: abdominal pain, cholelithiasis Patient is an 81y/o F with PMH of acute cholecystitis s/p ERCP with stenting of the biliary tree in 2014 and diverticulitis s/p sigmoidectomy came with EPigatric and RUQ abd pain and non bloody vomiting that started yesterday. Patient has had intermittent abdomial pain, nausea, vomiting, and cold-like symptoms for the past 2 year intemittently. Per son patient has been having decreased PO intake mostly consistent of broth. Denies any hematemsis, melena, hematochezia, diarrha, constipation, mid-back pain, fevers, chills, dysuria, hematuria, chest pain or any other symptoms. US was performed which showed cholelithiasis, dilated CBD of 9.7mm. Pt had PE and is on Eliquis. Pt took Eliquis on 06/07 yesterday. PMH: Cholelithiasis, PE/ DVT on Eliquis PSH: Colectomy for diverticulitis , Tubal ligation , biliary stent placement SS: lives with family Review of Systems - Review of Systems Review of Systems: See HPI Past Patient History - Infectious Disease Hx of Infectious Diseases: None - Past Medical History & Family History Past Medical History?: Yes - Past Social History Smoking Status: Never Smoked - CARDIAC Hx Cardiac Disorders: Yes Hx Hypertension: Yes Other/Comment: Pacemaker - PULMONARY Hx Respiratory Disorders: Yes Hx Chronic Obstructive Pulmonary Disease (COPD): Yes - NEUROLOGICAL Hx Neurological Disorder: No - HEENT Hx HEENT Problems: Yes (WEARS RX GLASSES) Hx Deafness: Yes (BILATERAL HEARING AIDE) - RENAL Hx Chronic Kidney Disease: No - ENDOCRINE/METABOLIC Hx Endocrine Disorders: Yes Hx Diabetes Mellitus Type 2: Yes - HEMATOLOGICAL/ONCOLOGICAL Hx Blood Disorders: No - INTEGUMENTARY Hx Dermatological Problems: No - MUSCULOSKELETAL/RHEUMATOLOGICAL Hx Musculoskeletal Disorders: No Hx Falls: No - GASTROINTESTINAL Hx Gastrointestinal Disorders: Yes (CHOLELITHIASIS,CHOLECYSTITIS,INCISIONAL HERNIA) Hx Diverticulitis: Yes (s/p resection) Hx Gall Bladder Disease: (gallstones) Hx Gastroesophageal Reflux: Yes Other/Comment: HEMORRHOIDS - GENITOURINARY/GYNECOLOGICAL Hx Genitourinary Disorders: Yes (CEASEREAN,CYST IN FALLOPIAN TUBE) Hx Bladder Stone: Yes - PSYCHIATRIC Hx Psychophysiologic Disorder: No Hx Substance Use: No - SURGICAL HISTORY Other/Comment: colon resection for diverticulitis, pacemaker placement, vericose veins, c section, cyst in fallopian tube, incisional hernia - ANESTHESIA Hx Anesthesia Reactions: Yes (DECREASED O2 SAT AND HR, DIFFICULT TO AROUSE) Meds Allergies/Adverse Reactions: Allergies Allergy/AdvReac Type Severity Reaction Status Date / Time Penicillins AdvReac RASH Verified 06/08/17 10:20 - Medications Medications: Current Medications Sodium Chloride (Sodium Chloride 0.9%) 1,000 mls @ 100 mls/hr IV .Q10H ONE Stop: 06/08/17 23:02 Last Admin: 06/08/17 13:29 Dose: 100 mls/hr Physical Exam - Constitutional Appears: No Acute Distress - Head Exam Head Exam: ATRAUMATIC, NORMAL INSPECTION, NORMOCEPHALIC - Eye Exam Eye Exam: EOMI, Normal appearance, PERRL Pupil Exam: NORMAL ACCOMODATION, PERRL - ENT Exam ENT Exam: Mucous Membranes Moist, Normal Exam - Neck Exam Neck exam: Positive for: Normal Inspection - Respiratory Exam Respiratory Exam: Clear to Auscultation Bilateral, NORMAL BREATHING PATTERN - Cardiovascular Exam Cardiovascular Exam: REGULAR RHYTHM - GI/Abdominal Exam GI & Abdominal Exam: Normal Bowel Sounds, Soft, Tenderness. absent: Distended, Firm, Guarding, Hernia Additional comments: EPigastric, RUQ TTP - Exam Exam: NORMAL INSPECTION - Extremities Exam Extremities exam: Positive for: full ROM, normal inspection - Back Exam Back exam: NORMAL INSPECTION - Neurological Exam Neurological exam: Alert, CN II-XII Intact, Normal Gait, Oriented x3, Reflexes Normal - Psychiatric Exam Psychiatric exam: Normal Affect, Normal Mood - Skin Skin Exam: Dry, Intact, Normal Color, Warm Results - Vital Signs Recent Vital Signs: Last Vital Signs Temp 98.7 F 06/08/17 13:36 Pulse 60 06/08/17 15:20 Resp 18 06/08/17 15:20 BP 117/59 L 06/08/17 15:20 Pulse Ox 100 06/08/17 15:20 - Labs Result Diagrams: 06/08/17 10:59 06/08/17 10:59 Assessment & Plan - Assessment and Plan (Free Text) Assessment: Symptomatic cholelithiasis with dilated CBD and elevated LFT -GI on board -Monitor LFT -Diet per GI Will DW Dr. Duncan
[2017-06-08] MEDS: Sodium Chloride 0.45% 1,000 ML IV SCH (18:17)
[2017-06-08 19:13] LABS: URINE BILIRUBIN SMALL (NEGATIVE); URINE BLOOD TRACE-INTACT (NEGATIVE); URINE GLUCOSE (UA) NEGATIVE (NEGATIVE); URINE LEUKOCYTE ESTERASE TRACE Leu/uL (NEGATIVE); URINE PROTEIN NEGATIVE mg/dL (<30 mg/dL)
[2017-06-08 19:14] LABS: URINE APPEARANCE CLEAR (CLEAR); URINE COLOR YELLOW (YELLOW)
[2017-06-08 19:23] LABS: URINE AMORPHOUS SEDIMENT FEW; URINE BACTERIA MANY (NEG)
[2017-06-08 21:21] VITALS: BMI 29.6
[2017-06-08] MEDS: Insulin Lispro (humaLOG) MEDIUM Coverage SC SCH (22:14)
[2017-06-08] MEDS: levoFLOXacin 500 mg in D5W 500 MG/100 ML BAG IVPB SCH (22:32)
[2017-06-08] MEDS: metroNIDAZOLE IV 500 mg/100 ml 500 MG/100 ML BAG IVPB SCH (22:33)
[2017-06-08] MEDS: Morphine 2 mg/ml ISec IVP PRN (22:37)
--- NOTE | 2017-06-09 05:10 | HP ---
HISTORY OF PRESENT ILLNESS: Patient is an 81-year-old, who came to emergency room for epigastric discomfort radiating towards the right and the left upper quadrants, also complaining of some chest discomfort. Patient does state that she felt feverish at home, complaining of feeling nauseous and had episode of vomiting around 3 o'clock this morning. No history of diarrhea. Patient was recently admitted on 05/13/2017 with similar complaints. She was treated conservatively, and she was referred to Dr. Jackson for possible ERCP because of her other multiple comorbidities. PAST MEDICAL HISTORY: Significant for: 1. Cholelithiasis. 2. History of pulmonary embolism. 3. History of pacemaker placement. 4. History of sleep apnea. 5. Hyperlipidemia. 6. COPD. 7. Non-insulin dependant diabetes. ALLERGIES: SHE IS ALLERGIC TO PENICILLIN. MEDICATIONS AT HOME: She is on Eliquis 5 mg daily, Zetia 10 mg daily, Lasix 20 mg daily, Neurontin 300 daily, lisinopril 2.5 daily, metoprolol 25 daily, Tamiflu 75 twice a day, Protonix 40 daily, timolol eye drop, Actigall 300 daily, metformin 500 twice a day, and Percocet. SOCIAL HISTORY: She lives with her son. Denies smoking, drinking, or alcohol use. REVIEW OF SYSTEMS: Complains of generalized fatigue. Complains of feeling nauseous and epigastric discomfort. PHYSICAL EXAMINATION: GENERAL: She is awake and alert, forgetful. VITAL SIGNS: She is afebrile, pulse 60, respirations 20, blood pressure 120/71. LUNGS: Bilateral fair airflow. No rhonchi or crackle. HEART: S1, S2 audible. ABDOMEN: Soft. Slight epigastric and right upper quadrant discomfort. NEUROLOGIC: She is awake, alert, oriented, communicative. LABORATORY DATA: WBC 8.7, hemoglobin 12.4, hematocrit 38.4, platelets of 163. PT 14.1, INR 1.22. Chemistry, sodium 143, potassium 4.0, chloride 108, CO2 of 23, BUN 21, creatinine 1.1, blood sugar of 199. Her total bilirubin is 1.9, AST 309, ALT 202, alkaline phosphatase 141. She had abdominal sonogram done, persistent dilatation of common bile duct choledocholithiasis, measuring 9.7 mm as compared to prior ultrasound. Gallbladder is mildly distended but otherwise appears unremarkable, no cholelithiasis. Pancrease is obscured clearly because of overlying bowel. Bilateral leg Doppler. No sonographic evidence for deep venous thrombosis in the visualized segment of both lower extremities. ASSESSMENT: 1. Epigastric pain. 2. Choledocholithiasis with dilatation of common bile duct. 3. Abnormal liver function tests. 4. Status post sigmoidectomy. 5. History of diverticulitis. 6. Hypertension. 7. Pulmonary embolism. 8. History of deep vein thrombosis. 9. Status post pacemaker. PLAN: We will admit patient on Med/Surg. We will keep her n.p.o. We will give IV fluid, IV antibiotics. GI consult by Dr. Guevara and surgical consult by Dr. Duncan has been requested, and we will follow up her electrolyte in a.m. We will hold off her anticoagulant. Silvio Smith MD
[2017-06-09] MEDS: metroNIDAZOLE IV 500 mg/100 ml 500 MG/100 ML BAG IVPB SCH ×3 (05:20→18:39)
[2017-06-09] MEDS: Morphine 2 mg/ml ISec IVP PRN ×3 (06:57→18:54)
[2017-06-09 07:31] LABS: BASO # 0.01 K/mm3 (0.0-2.0); BASO % 0.2 % (0.0-3.0); EOS # 0.1 (0.0-0.7); EOS % 0.8 % (1.5-5.0); GRAN # 5.1 (1.4-6.5); GRAN % 77.4 % (50.0-68.0); HEMOGLOBIN 10.7 g/dL (12.0-16.0); LYMPH % 15.7 % (22.0-35.0); MEAN CELL VOLUME 93.7 fl (80.0-105.0); MEAN CORPUSCULAR HEMOGLOBIN 30.7 pg (25.0-35.0); MEAN CORPUSCULAR HGB CONC 32.7 g/dl (31.0-37.0); MEAN PLATELET VOLUME 10.2 fl (7.0-11.0); MONO # 0.4 (0.1-0.6); MONO % 5.9 % (1.0-6.0); RBC 3.49 10^6/uL (3.5-6.1); RED CELL DISTRIBUTION WIDTH 13.6 % (11.5-14.5); WHITE BLOOD COUNT 6.6 10^3/ul (4.5-11.0)
[2017-06-09 07:59] LABS: ALB/GLOB RATIO 0.9 (1.1-1.8); ALBUMIN 3.2 g/dL (3.0-4.8); ALT/SGPT 139 U/L (7-56); AST/SGOT 147 U/L (14-36); BLOOD UREA NITROGEN 17 mg/dL (7-21); GFR AFRICAN-AMERICAN > 60; GFR NON-AFRICAN AMERICAN 53
[2017-06-09] MEDS: Insulin Lispro (humaLOG) MEDIUM Coverage SC SCH ×4 (09:31→22:00)
[2017-06-09] MEDS: levoFLOXacin 500 mg in D5W 500 MG/100 ML BAG IVPB SCH (09:33)
--- NOTE | 2017-06-09 11:08 | CP.PCM.PN ---
Subjective - Date & Time of Evaluation Date of Evaluation: 06/09/17 Time of Evaluation: 11:05 - Subjective Subjective: Surgery Pt s&e. C/o abd pain and nausea. Denies vomiting/F/C/D/CP/SOB. Seen by GI yesterday. Plan on HIDA and endoscopy. Objective - Vital Signs/Intake and Output Vital Signs (last 24 hours): Temp Pulse Resp BP Pulse Ox 98.1 F 64 20 107/57 L 99 06/09/17 07:42 06/09/17 07:42 06/09/17 07:42 06/09/17 07:42 06/09/17 07:42 Intake and Output: 06/09/17 06/09/17 06:59 18:59 Intake Total 900 Balance 900 - Medications Medications: Current Medications Sodium Chloride (Sodium Chloride 0.45%) 1,000 mls @ 75 mls/hr IV .[id number] [facility] Last Admin: 06/08/17 18:17 Dose: 75 mls/hr Metronidazole (Flagyl) 500 mg in 100 mls @ 100 mls/hr IVPB Q8 [facility] PRN Reason: Protocol Last Admin: 06/09/17 05:20 Dose: 100 mls/hr Levofloxacin/Dextrose (Levaquin 500mg) 500 mg in 100 mls @ 100 mls/hr IVPB DAILY [facility] PRN Reason: Protocol Last Admin: 06/09/17 09:33 Dose: 100 mls/hr Insulin Human Lispro (Humalog Med) 0 units SC ACHS [facility] PRN Reason: Protocol Last Admin: 06/09/17 09:31 Dose: Not Given Morphine Sulfate (Morphine) 2 mg IVP Q4H PRN PRN Reason: Pain, moderate (4-7) Last Admin: 06/09/17 10:45 Dose: 2 mg Pantoprazole Sodium (Protonix Inj) 40 mg IVP DAILY [facility] Last Admin: 06/09/17 09:33 Dose: 40 mg Timolol Maleate (Timoptic 0.5% Ophth Soln) 0 drop OU BID [facility] Last Admin: 06/09/17 09:31 Dose: 1 drop Ursodiol (Actigall) 300 mg PO 0800 [facility] Last Admin: 06/09/17 09:30 Dose: 300 mg - Labs Labs: 06/09/17 07:00 06/09/17 07:00 PT 14.1 SECONDS (9.4-12.5) H 06/08/17 12:20 INR 1.22 (0.93-1.08) H 06/08/17 12:20 APTT 30.5 Seconds (25.1-36.5) 06/08/17 12:20 - Constitutional Appears: No Acute Distress - Head Exam Head Exam: ATRAUMATIC, NORMAL INSPECTION, NORMOCEPHALIC - Eye Exam Eye Exam: EOMI, Normal appearance, PERRL Pupil Exam: NORMAL ACCOMODATION, PERRL - ENT Exam ENT Exam: Mucous Membranes Moist, Normal Exam - Neck Exam Neck Exam: Full ROM, Normal Inspection. absent: Lymphadenopathy - Respiratory Exam Respiratory Exam: Clear to Ausculation Bilateral, NORMAL BREATHING PATTERN - Cardiovascular Exam Cardiovascular Exam: REGULAR RHYTHM, +S1, +S2. absent: Murmur - GI/Abdominal Exam GI & Abdominal Exam: Soft, Tenderness, Normal Bowel Sounds. absent: Distended, Firm, Guarding, Mass, Rebound Additional comments: RUQ , epigastric TTP. - Extremities Exam Extremities Exam: Full ROM, Normal Capillary Refill, Normal Inspection. absent : Joint Swelling, Pedal Edema - Back Exam Back Exam: NORMAL INSPECTION - Neurological Exam Neurological Exam: Alert, Awake, CN II-XII Intact, Normal Gait, Oriented x3 - Psychiatric Exam Psychiatric exam: Normal Affect, Normal Mood - Skin Skin Exam: Dry, Intact, Normal Color, Warm Assessment and Plan - Assessment and Plan (Free Text) Assessment: Symptomatic cholelithiasis with dilated CBD and elevated LFT LFT trending. -GI on board : F/U HIDA, Endoscopy -Monitor LFT -Diet per GI Will DW covering for Dr. Duncan
--- NOTE | 2017-06-09 13:36 | CP.PCM.CON ---
<RonnieMattiana - Last Filed: 06/09/17 14:38> History of Present Illness - History of Present Illness History of Present Illness: GI Consult Note Dr. Guevara CC: abdominal pain, cholelithiasis HPI: 81 F with a PMHx of acute cholecystitis s/p ERCP with stenting of the biliary tree (2014), diverticulitis s/p sigmoidectomy, Non-MRI compatible pacemaker, HTN, DM2, GERD, COPD, and hx of PE presenting [place] [facility] with complaints of epigastric abdominal pain and nausea and vomiting of non-bilious non bloody emesis. Abdominal US demonstrated dilated CBD of 9.7mm, and scheduled for ERCP, however pt received elaquis this past Wednesday. Pt denied fevers, chills, sob, chest pains, hematemsis, melena, hematochezia, diarrhea, constipation. PMHx: As above PSHx: sigmoidectomy, , tubal ligation SHx: Denied FamHx: Denied Meds; MAR reviewed [place];PCN Review of Systems - Review of Systems Review of Systems: as per HPI otherwise negative Past Patient History - Infectious Disease Hx of Infectious Diseases: None - Past Medical History & Family History Past Medical History?: Yes - Past Social History Smoking Status: Never Smoked - CARDIAC Hx Cardiac Disorders: Yes Hx Hypertension: Yes Other/Comment: Pacemaker - PULMONARY Hx Respiratory Disorders: Yes Hx Chronic Obstructive Pulmonary Disease (COPD): Yes - NEUROLOGICAL Hx Neurological Disorder: No - HEENT Hx HEENT Problems: Yes (WEARS RX GLASSES) Hx Deafness: Yes (BILATERAL HEARING AIDE) - RENAL Hx Chronic Kidney Disease: No - ENDOCRINE/METABOLIC Hx Endocrine Disorders: Yes Hx Diabetes Mellitus Type 2: Yes - HEMATOLOGICAL/ONCOLOGICAL Hx Blood Disorders: No - INTEGUMENTARY Hx Dermatological Problems: No - MUSCULOSKELETAL/RHEUMATOLOGICAL Hx Musculoskeletal Disorders: No Hx Falls: No - GASTROINTESTINAL Hx Gastrointestinal Disorders: Yes (CHOLELITHIASIS,CHOLECYSTITIS,INCISIONAL HERNIA) Hx Diverticulitis: Yes (s/p resection) Hx Gall Bladder Disease: (gallstones) Hx Gastroesophageal Reflux: Yes Other/Comment: HEMORRHOIDS - GENITOURINARY/GYNECOLOGICAL Hx Genitourinary Disorders: Yes (CEASEREAN,CYST IN FALLOPIAN TUBE) - PSYCHIATRIC Hx Psychophysiologic Disorder: No Hx Substance Use: No - SURGICAL HISTORY Other/Comment: colon resection for diverticulitis, pacemaker placement, vericose veins, c section, cyst in fallopian tube, incisional hernia - ANESTHESIA Hx Anesthesia Reactions: Yes (DECREASED O2 SAT AND HR, DIFFICULT TO AROUSE) Meds Allergies/Adverse Reactions: Allergies Allergy/AdvReac Type Severity Reaction Status Date / Time Penicillins AdvReac RASH Verified 06/08/17 16:11 - Medications Medications: Current Medications Sodium Chloride (Sodium Chloride 0.45%) 1,000 mls @ 75 mls/hr IV .[id number] [facility] Last Admin: 06/08/17 18:17 Dose: 75 mls/hr Metronidazole (Flagyl) 500 mg in 100 mls @ 100 mls/hr IVPB Q8 [facility] PRN Reason: Protocol Last Admin: 06/09/17 05:20 Dose: 100 mls/hr Levofloxacin/Dextrose (Levaquin 250mg) 250 mg in 50 mls @ 100 mls/hr IVPB DAILY [facility] PRN Reason: Protocol Insulin Human Lispro (Humalog Med) 0 units SC ACHS [facility] PRN Reason: Protocol Last Admin: 06/09/17 09:31 Dose: Not Given Morphine Sulfate (Morphine) 2 mg IVP Q4H PRN PRN Reason: Pain, moderate (4-7) Last Admin: 06/09/17 10:45 Dose: 2 mg Pantoprazole Sodium (Protonix Inj) 40 mg IVP DAILY [facility] Last Admin: 06/09/17 09:33 Dose: 40 mg Timolol Maleate (Timoptic 0.5% Ophth Soln) 0 drop OU BID [facility] Last Admin: 06/09/17 09:31 Dose: 1 drop Ursodiol (Actigall) 300 mg PO 0800 [facility] Last Admin: 06/09/17 09:30 Dose: 300 mg Physical Exam - Constitutional Appears: No Acute Distress - Head Exam Head Exam: ATRAUMATIC, NORMAL INSPECTION, NORMOCEPHALIC - Eye Exam Eye Exam: EOMI, Normal appearance, PERRL Pupil Exam: NORMAL ACCOMODATION, PERRL - ENT Exam ENT Exam: Mucous Membranes Moist, Normal Exam - Neck Exam Neck exam: Positive for: Normal Inspection - Respiratory Exam Respiratory Exam: Clear to Auscultation Bilateral, NORMAL BREATHING PATTERN - Cardiovascular Exam Cardiovascular Exam: REGULAR RHYTHM, +S1, +S2 - GI/Abdominal Exam GI & Abdominal Exam: Normal Bowel Sounds, Soft, Tenderness Additional comments: RUQ Results - Vital Signs Recent Vital Signs: Last Vital Signs Temp 98.1 F 06/09/17 07:42 Pulse 64 06/09/17 07:42 Resp 20 06/09/17 07:42 BP 107/57 L 06/09/17 07:42 Pulse Ox 99 06/09/17 07:42 - Labs Result Diagrams: 06/09/17 07:00 06/09/17 07:00 Labs: Laboratory Results - last 24 hr 06/08/17 06/08/17 06/09/17 18:12 21:46 07:00 WBC RBC Hgb Hct MCV MCH MCHC RDW Plt Count MPV Gran % Lymph % (Auto) [place] % (Auto) Eos % (Auto) Baso % (Auto) Gran # Lymph # (Auto) [place] # (Auto) Eos # (Auto) Baso # (Auto) Sodium 143 Potassium 3.8 Chloride 113 H Carbon Dioxide 23 Anion Gap 11 BUN 17 Creatinine 1.0 Est GFR ( Amer) > 60 Est GFR (Non-Af Amer) 53 POC Glucose (mg/dL) 101 Random Glucose 99 Calcium 9.0 Total Bilirubin 1.6 H AST 147 H D ALT 139 H Alkaline Phosphatase 104 Total Protein 6.6 Albumin 3.2 Globulin 3.4 Albumin/Globulin Ratio 0.9 L Urine Color Yellow Urine Appearance Clear Urine pH 6.0 Ur Specific [place] 1.015 Urine Protein Negative Urine Glucose (UA) Negative Urine Ketones Negative Urine Blood Trace-intact H Urine Nitrate Negative Urine Bilirubin Small H Urine Urobilinogen 1.0 H Ur Leukocyte Esterase Trace H Urine RBC 2 - 5 Urine WBC 2 - 5 Ur Epithelial Cells 4 - 5 Amorphous Sediment Few Urine Bacteria Many Urine Other Uyeast 06/09/17 06/09/17 06/09/17 07:00 07:12 11:18 WBC 6.6 D RBC 3.49 L Hgb 10.7 L Hct 32.7 L MCV 93.7 MCH 30.7 MCHC 32.7 RDW 13.6 Plt Count 134 MPV 10.2 Gran % 77.4 H Lymph % (Auto) 15.7 L [place] % (Auto) 5.9 Eos % (Auto) 0.8 L Baso % (Auto) 0.2 Gran # 5.10 Lymph # (Auto) 1.0 L [place] # (Auto) 0.4 Eos # (Auto) 0.1 Baso # (Auto) 0.01 Sodium Potassium Chloride Carbon Dioxide Anion Gap BUN Creatinine Est GFR ( Amer) Est GFR (Non-Af Amer) POC Glucose (mg/dL) 98 115 H Random Glucose Calcium Total Bilirubin AST ALT Alkaline Phosphatase Total Protein Albumin Globulin Albumin/Globulin Ratio Urine Color Urine Appearance Urine pH Ur Specific [place] Urine Protein Urine Glucose (UA) Urine Ketones Urine Blood Urine Nitrate Urine Bilirubin Urine Urobilinogen Ur Leukocyte Esterase Urine RBC Urine WBC Ur Epithelial Cells Amorphous Sediment Urine Bacteria Urine Other Assessment & Plan - Assessment and Plan (Free Text) Assessment: CBD dilatation 9.7mm without Cholelithiasis Nonobstructive uropathy COPD NIDDM HTN HLD hx PE Pleural effusion pacemaker Plan: monitor and trend LFTs plan for ERCP, EGD, EUS after appropriate time off elaquis HIDA pending fu CLD, NPO after midnight prior to procedures PPI levaquin and flagyl Discussed with Dr. Guevara <Tania Guevara V - Last Filed: 06/10/17 00:57> Meds - Medications Medications: Current Medications Sodium Chloride (Sodium Chloride 0.45%) 1,000 mls @ 75 mls/hr IV .[id number] [facility] Last Admin: 06/08/17 18:17 Dose: 75 mls/hr Metronidazole (Flagyl) 500 mg in 100 mls @ 100 mls/hr IVPB Q8 [facility] PRN Reason: Protocol Last Admin: 06/09/17 22:10 Dose: 100 mls/hr Levofloxacin/Dextrose (Levaquin 250mg) 250 mg in 50 mls @ 100 mls/hr IVPB DAILY [facility] PRN Reason: Protocol Insulin Human Lispro (Humalog Med) 0 units SC ACHS [facility] PRN Reason: Protocol Last Admin: 06/09/17 18:43 Dose: Not Given Morphine Sulfate (Morphine) 2 mg IVP Q4H PRN PRN Reason: Pain, moderate (4-7) Last Admin: 06/09/17 18:54 Dose: 2 mg Pantoprazole Sodium (Protonix Inj) 40 mg IVP DAILY [facility] Last Admin: 06/09/17 09:33 Dose: 40 mg Timolol Maleate (Timoptic 0.5% Ophth Soln) 0 drop OU BID [facility] Last Admin: 06/09/17 18:43 Dose: 1 drop Ursodiol (Actigall) 300 mg PO 0800 [facility] Last Admin: 06/09/17 09:30 Dose: 300 mg Results - Vital Signs Recent Vital Signs: Last Vital Signs Temp 98.2 F 06/09/17 22:00 Pulse 62 06/09/17 22:00 Resp 20 06/09/17 22:00 BP 140/85 06/09/17 22:00 Pulse Ox 98 06/09/17 22:00 - Labs Result Diagrams: 06/09/17 07:00 06/09/17 07:00 Labs: Laboratory Results - last 24 hr 06/09/17 06/09/17 06/09/17 07:00 07:00 07:12 WBC 6.6 D RBC 3.49 L Hgb 10.7 L Hct 32.7 L MCV 93.7 MCH 30.7 MCHC 32.7 RDW 13.6 Plt Count 134 MPV 10.2 Gran % 77.4 H Lymph % (Auto) 15.7 L [place] % (Auto) 5.9 Eos % (Auto) 0.8 L Baso % (Auto) 0.2 Gran # 5.10 Lymph # (Auto) 1.0 L [place] # (Auto) 0.4 Eos # (Auto) 0.1 Baso # (Auto) 0.01 Sodium 143 Potassium 3.8 Chloride 113 H Carbon Dioxide 23 Anion Gap 11 BUN 17 Creatinine 1.0 Est GFR ( Amer) > 60 Est GFR (Non-Af Amer) 53 POC Glucose (mg/dL) 98 Random Glucose 99 Calcium 9.0 Total Bilirubin 1.6 H AST 147 H D ALT 139 H Alkaline Phosphatase 104 Total Protein 6.6 Albumin 3.2 Globulin 3.4 Albumin/Globulin Ratio 0.9 L 06/09/17 06/09/17 06/09/17 11:18 18:44 21:10 WBC RBC Hgb Hct MCV MCH MCHC RDW Plt Count MPV Gran % Lymph % (Auto) [place] % (Auto) Eos % (Auto) Baso % (Auto) Gran # Lymph # (Auto) [place] # (Auto) Eos # (Auto) Baso # (Auto) Sodium Potassium Chloride Carbon Dioxide Anion Gap BUN Creatinine Est GFR ( Amer) Est GFR (Non-Af Amer) POC Glucose (mg/dL) 115 H 144 H 98 Random Glucose Calcium Total Bilirubin AST ALT Alkaline Phosphatase Total Protein Albumin Globulin Albumin/Globulin Ratio Attending/Attestation - Attestation I have personally seen and examined this patient.: Yes I have fully participated in the care of the patient.: Yes I have reviewed all pertinent clinical information: Yes
[2017-06-09] MEDS ORDERED: Influenza Vaccine 60 mcg/0.5 mL SYR (4YR UP) IM ONE (13:39)
[2017-06-09] MEDS ORDERED: Pneumococcal 23-Valent Vaccine IM ONE (13:39)
--- NOTE | 2017-06-09 16:22 | CON ---
DATE: 06/08/2017 This patient was seen and evaluated earlier today. Discussed with the patient's son also. HISTORY OF PRESENT ILLNESS: This is an 81-year-old patient with a past medical history of hypertension, cholelithiasis, has a history of dilated common bile duct with questionable distal common duct density, who was recently in the hospital, discharged. The patient had flu. The patient was closely followed up for further evaluation at the [facility], was re-admitted with acute onset of abdominal pain that started about the day before the ER visit. The patient was brought to the emergency room for worsening of symptoms. The patient following the discharge was also seen by her primary doctor and the flight follower, Dr. Amaya. The patient is due to have an ERCP scheduled on Wednesday at the [facility]. The patient had an acute worsening of the abdominal pain and presented to the emergency room. The patient has a history of dilated CBD and had ERCP with pancreatic stent placement in the past. The patient had a failed cannulation. The patient was doing well until her last admission. The patient did not follow up at [facility] for further evaluation. PAST MEDICAL HISTORY: Positive as above. Other past medical history is significant for status post pacemaker, coronary artery disease, COPD, had a foot surgery done, history of incisional hernia, and history of diverticulitis -- status post sigmoid colon resection in the past. The patient also has a history of pulmonary embolism in the past, was on Eliquis in the past. SOCIAL HISTORY: Ex-smoker. Alcohol socially and occasionally. REVIEW OF SYSTEMS: Positive as above. Other systems reviewed. PHYSICAL EXAMINATION: GENERAL: The patient is lying on the bed, not in acute distress. VITAL SIGNS: Temperature is 97.5, blood pressure 120/71, pulse 60, and respirations 18. HEENT: Atraumatic, anicteric. NECK: Supple. HEART: S1 and S2 heard. LUNGS: Bilateral air entry present. ABDOMEN: Soft. Tenderness present in the right upper quadrant area. There is no rebound or guarding. EXTREMITIES: No edema. No cyanosis. LABORATORY DATA: Hemoglobin 12.4, hematocrit 38.4, WBC is 8.7, and platelets 163. Chemistry showed total bilirubin of 1.9, AST 319, ALT 202, alkaline phosphatase 141, and direct bilirubin 1.6. DIAGNOSTIC DATA: The patient had ultrasound scan of the abdomen done, which showed gallstones, a dilated common bile duct of 1.3 cm. There was mild intrahepatic ductal dilation present. IMPRESSION: This is an 81-year-old patient with known gallstones, admitted with an acute onset of abdominal pain, mainly in the right upper quadrant area and distal common bile duct filling defect noticed in the past. The patient is due to have an endoscopic retrograde cholangiopancreatography on Wednesday as an outpatient. The patient was admitted with worsening of abdominal pain and elevated liver function tests. The differential diagnosis is rule out common bile duct stone and rule out bile ductal lesion. Other comorbidities include diabetes mellitus, chronic obstructive pulmonary disease, history of pulmonary embolism in the past, history of diverticulitis, status post sigmoid colon resection. RECOMMENDATIONS: 1. Follow up of the LFTs. 2. We will start the patient on IV Levaquin and Flagyl. THE PATIENT IS ALLERGIC TO PENICILLIN. 3. I had a detailed discussion with the patient's son. The patient will be scheduled for EGD/EUS/ ERCP tomorrow. Risks, benefits, and alternatives explained and the informed consent was obtained. The possibility of failed cannulation was also explained. Thank you very much for allowing me to participate in the care of the patient. Tania Guevara MD [facility]
--- NOTE | 2017-06-09 21:48 | PN ---
DATE: SUBJECTIVE: Patient is 81-year-old, seen and examined, lying in bed, seems to be comfortable, not in any acute distress. N.p.o. for the ERCP in the afternoon. No nausea or vomiting. Complained of headache. PHYSICAL EXAMINATION: VITAL SIGNS: She is afebrile, pulse 64, respirations 20, blood pressure . LUNGS: Bilateral fair airflow. No rhonchi or crackle. HEART: S1 and S2 audible. ABDOMEN: Soft. Slight epigastric discomfort and periumbilical discomfort. NEUROLOGIC: She is awake, alert, oriented, and communicative. LABORATORY DATA: WBC 6.6, hemoglobin 10.7, hematocrit 32.7, platelets 134. Chemistry: Sodium 143, potassium 3.8, chloride 113, CO2 of 23, BUN 17, creatinine 1.0. Blood sugar of 115. Total bili 1.6, AST 147, ALT 139. ASSESSMENT: 1. Abdominal pain. 2. History of cholelithiasis and choledocholithiasis. 3. History of sigmoidectomy. 4. Non-insulin dependent diabetes. 5. Peptic ulcer disease. 6. History of chronic obstructive pulmonary disease. 7. Hypertension. 8. History of pulmonary embolism. PLAN: Patient is n.p.o. She is off of anticoagulant. She is on IV fluids. She is on Flagyl and Levaquin, and she is scheduled for ERCP today at 01:30. Silvio Smith MD
[2017-06-10] MEDS: metroNIDAZOLE IV 500 mg/100 ml 500 MG/100 ML BAG IVPB SCH ×3 (06:20→22:05)
[2017-06-10 07:21] LABS: ALB/GLOB RATIO 0.9 (1.1-1.8); ALBUMIN 3.2 g/dL (3.0-4.8); ALT/SGPT 104 U/L (7-56); AST/SGOT 82 U/L (14-36); BLOOD UREA NITROGEN 11 mg/dL (7-21); CALCIUM 9.2 mg/dL (8.4-10.5); GFR AFRICAN-AMERICAN > 60; GFR NON-AFRICAN AMERICAN > 60
[2017-06-10] MEDS: Insulin Lispro (humaLOG) MEDIUM Coverage SC SCH ×4 (08:32→22:00)
--- NOTE | 2017-06-10 08:44 | CP.PCM.PN ---
Subjective - Date & Time of Evaluation Date of Evaluation: 06/10/17 Time of Evaluation: 08:39 - Subjective Subjective: Surgery Progress Note: Patient seen and examined at bedside. NAEON. Pt reports abdominal pain and nausea. Denies fever, chills, nausea, vomiting. Objective - Vital Signs/Intake and Output Vital Signs (last 24 hours): Temp Pulse Resp BP Pulse Ox 98.1 F 63 20 136/89 99 06/10/17 07:32 06/10/17 07:32 06/10/17 07:32 06/10/17 07:32 06/10/17 07:32 Intake and Output: 06/10/17 06/10/17 06:59 18:59 Intake Total 600 Balance 600 - Medications Medications: Current Medications Sodium Chloride (Sodium Chloride 0.45%) 1,000 mls @ 75 mls/hr IV .[id number] [facility] Last Admin: 06/08/17 18:17 Dose: 75 mls/hr Metronidazole (Flagyl) 500 mg in 100 mls @ 100 mls/hr IVPB Q8 [facility] PRN Reason: Protocol Last Admin: 06/10/17 06:20 Dose: 100 mls/hr Levofloxacin/Dextrose (Levaquin 250mg) 250 mg in 50 mls @ 100 mls/hr IVPB DAILY [facility] PRN Reason: Protocol Insulin Human Lispro (Humalog Med) 0 units SC ACHS [facility] PRN Reason: Protocol Last Admin: 06/10/17 08:32 Dose: Not Given Morphine Sulfate (Morphine) 2 mg IVP Q4H PRN PRN Reason: Pain, moderate (4-7) Last Admin: 06/09/17 18:54 Dose: 2 mg Pantoprazole Sodium (Protonix Inj) 40 mg IVP DAILY [facility] Last Admin: 06/09/17 09:33 Dose: 40 mg Timolol Maleate (Timoptic 0.5% Ophth Soln) 0 drop OU BID [facility] Last Admin: 06/09/17 18:43 Dose: 1 drop Ursodiol (Actigall) 300 mg PO 0800 [facility] Last Admin: 06/10/17 08:36 Dose: 300 mg - Labs Labs: 06/09/17 07:00 06/10/17 06:20 PT 14.1 SECONDS (9.4-12.5) H 06/08/17 12:20 INR 1.22 (0.93-1.08) H 06/08/17 12:20 APTT 30.5 Seconds (25.1-36.5) 06/08/17 12:20 - Constitutional Appears: Non-toxic, No Acute Distress - Head Exam Head Exam: ATRAUMATIC, NORMOCEPHALIC - Eye Exam Eye Exam: EOMI, PERRL. absent: Conjunctival injection, Nystagmus, Scleral icterus Pupil Exam: NORMAL ACCOMODATION, PERRL. absent: Irregular, Unequal - ENT Exam ENT Exam: Mucous Membranes Moist - Neck Exam Neck Exam: Full ROM - Respiratory Exam Respiratory Exam: Clear to Ausculation Bilateral, NORMAL BREATHING PATTERN. absent: Rales, Rhonchi, Wheezes, Stridor - Cardiovascular Exam Cardiovascular Exam: RRR, +S1, +S2. absent: Murmur - GI/Abdominal Exam GI & Abdominal Exam: Soft, Tenderness (TTP in RUQ, epigastric area), Normal Bowel Sounds. absent: Distended, Guarding, Mass, Organomegaly - Extremities Exam Extremities Exam: Normal Inspection. absent: Calf Tenderness, Pedal Edema - Neurological Exam Neurological Exam: Alert, Awake, Oriented x3 - Psychiatric Exam Psychiatric exam: Normal Affect, Normal Mood - Skin Skin Exam: Dry, Normal Color, Warm Assessment and Plan - Assessment and Plan (Free Text) Assessment: 81 year old female with symptomatic cholelithiasis with dilated CBD and elevated LFTs: -LFTs downtrending. Cont to monitor. -GI on board : F/U HIDA, Endoscopy. Plan is for ERCP - held due to Eliquis. -Diet per GI Will DW covering for Dr. Duncan
[2017-06-10] MEDS: Sodium Chloride 0.45% 1,000 ML IV SCH ×3 (10:59→22:07)
[2017-06-10] MEDS: levoFLOXacin 250 mg in D5W 250 MG/50 ML BAG IVPB SCH (10:59)
[2017-06-10] MEDS ORDERED: Barium Sulfate Susp 2.1% w/v, 2.0% w/w 450 mL Bottle PO ONE (11:27)
--- NOTE | 2017-06-10 11:29 | NM ---
PROCEDURE: Nuclear Medicine Hepatobiliary Scan HISTORY: cholelithiasis COMPARISON: None available. TECHNIQUE: 5.4 mCi of technetium 99m Mebrofenin was administered intravenously. Planar images of the abdomen were obtained at 5 min intervals to 60 mins. Delayed images were also obtained. FINDINGS: LIVER: Timely and homogenous uptake. COMMON BILE DUCT: identified at 45 mins. GALLBLADDER: Not visualized even on 4 hour delayed imaging SMALL BOWEL: Identified at 45 mins. IMPRESSION: Nonvisualization of the gallbladder consistent with acute cholecystitis
--- NOTE | 2017-06-10 15:52 | CT ---
PROCEDURE: CT Abdomen and Pelvis with Oral contrast. HISTORY: choledocholelithiasis COMPARISON: Ultrasound 06/08/2017. Nuclear medicine study 06/09/[address] 05/16/2017 TECHNIQUE: Contiguous axial images of the abdomen and pelvis. Oral contrast was administered. No IV contrast given. Coronal and Sagittal reformats generated. Radiation dose: Total exam DLP = This CT exam was performed using one or more of the following dose reduction techniques: Automated exposure control, adjustment of the mA and/or kV according to patient size, and/or use of iterative reconstruction technique. FINDINGS: LOWER THORAX: Unremarkable. LIVER: Unremarkable. No gross lesion or ductal dilatation. GALLBLADDER AND BILE DUCTS: The gallbladder is unremarkable. The common duct is dilated measuring up to [address] On ultrasound this measured 9 mm. There is no obvious obstructing stone. However CT is somewhat limited in evaluating common duct stones. Unfortunately the patient has a pacemaker and MRI cannot be performed. The nuclear medicine study showed no obstruction of the common duct. The gallbladder was not visualized on the nuclear medicine study. ERCP may be indicated. PANCREAS: No obvious mass. SPLEEN: Unremarkable. No splenomegaly. ADRENALS: Unremarkable. KIDNEYS AND URETERS: Unremarkable. No stone or hydronephrosis. BLADDER: Grossly unremarkable. REPRODUCTIVE: Unremarkable. APPENDIX: Unremarkable. BOWEL: Unremarkable. No obstruction. No gross mural thickening. PERITONEUM: Hernia mesh along the anterior abdominal wall LYMPH NODES: Unremarkable. No enlarged lymph nodes. VASCULATURE: Unremarkable. No aortic aneurysm. BONES: No fracture or destructive lesion. OTHER FINDINGS: None. IMPRESSION: Persistent dilatation of the common duct. See comments
--- NOTE | 2017-06-10 17:01 | CP.PCM.PN ---
Subjective - Date & Time of Evaluation Date of Evaluation: 06/10/17 Time of Evaluation: 11:00 - Subjective Subjective: Seen and examined and the chart reviewed earlier today, patient denies nausea, vomiting, or abdominal pain. No acute overnight events reported. Hida reports nonvisualized gallbladder, consistent with acute cholecystitis. Objective - Vital Signs/Intake and Output Vital Signs (last 24 hours): Temp Pulse Resp BP Pulse Ox 98.1 F 63 20 136/89 99 06/10/17 07:32 06/10/17 07:32 06/10/17 07:32 06/10/17 07:32 06/10/17 07:32 Intake and Output: 06/10/17 06/10/17 06:59 18:59 Intake Total 600 360 Output Total 1 Balance 600 359 - Medications Medications: Current Medications Sodium Chloride (Sodium Chloride 0.45%) 1,000 mls @ 75 mls/hr IV .[id number] [facility] Last Admin: 06/10/17 11:00 Dose: 75 mls/hr Metronidazole (Flagyl) 500 mg in 100 mls @ 100 mls/hr IVPB Q8 [facility] PRN Reason: Protocol Last Admin: 06/10/17 14:02 Dose: 100 mls/hr Levofloxacin/Dextrose (Levaquin 250mg) 250 mg in 50 mls @ 100 mls/hr IVPB DAILY [facility] PRN Reason: Protocol Last Admin: 06/10/17 10:59 Dose: 100 mls/hr Insulin Human Lispro (Humalog Med) 0 units SC ACHS [facility] PRN Reason: Protocol Last Admin: 06/10/17 12:14 Dose: Not Given Morphine Sulfate (Morphine) 2 mg IVP Q4H PRN PRN Reason: Pain, moderate (4-7) Last Admin: 06/09/17 18:54 Dose: 2 mg Pantoprazole Sodium (Protonix Inj) 40 mg IVP DAILY [facility] Last Admin: 06/10/17 10:57 Dose: 40 mg Timolol Maleate (Timoptic 0.5% Ophth Soln) 0 drop OU BID [facility] Last Admin: 06/10/17 11:00 Dose: 1 drop Ursodiol (Actigall) 300 mg PO 0800 [facility] Last Admin: 06/10/17 08:36 Dose: 300 mg - Labs Labs: 06/09/17 07:00 06/10/17 06:20 PT 14.1 SECONDS (9.4-12.5) H 06/08/17 12:20 INR 1.22 (0.93-1.08) H 06/08/17 12:20 APTT 30.5 Seconds (25.1-36.5) 06/08/17 12:20 - Constitutional Appears: No Acute Distress - Head Exam Head Exam: NORMOCEPHALIC - Eye Exam Eye Exam: Normal appearance. absent: Scleral icterus - ENT Exam ENT Exam: Mucous Membranes Moist - Respiratory Exam Respiratory Exam: NORMAL BREATHING PATTERN. absent: Respiratory Distress - Cardiovascular Exam Cardiovascular Exam: +S1, +S2 - GI/Abdominal Exam GI & Abdominal Exam: Soft, Normal Bowel Sounds. absent: Guarding, Tenderness, Rebound - Extremities Exam Extremities Exam: Normal Capillary Refill. absent: Calf Tenderness - Neurological Exam Neurological Exam: Alert, Awake, Oriented x3 Assessment and Plan - Assessment and Plan (Free Text) Assessment: Assessment: CBD dilatation 9.7mm without Cholelithiasis Nonobstructive uropathy COPD NIDDM HTN HLD hx PE Pleural effusion pacemaker Plan: monitor and trend LFTs plan for ERCP, EGD, EUS on 06/11/17, pt will off Eliquis for 72 hours NPO 12 midnight except for meds continue clear liquid diet PPI Continue IV levaquin and flagyl On Actigall ct scan of abdomen and pelvis with only oral contrast Surgery on board Seen and discussed with Dr. Guevara.
--- NOTE | 2017-06-10 17:44 | PN ---
DATE: SUBJECTIVE: The patient is 81 years old seen and examined, lying in bed, seems to be comfortable. No nausea or vomiting. Has epigastric discomfort. PHYSICAL EXAMINATION: VITAL SIGNS: She is afebrile, pulse 63, respirations 20, blood pressure 136/89. LUNGS: Bilateral fair air flow. No rhonchi or crackle. HEART: S1, S2 audible. No murmur. ABDOMEN: Soft, nontender. No rebound, no guarding. NEUROLOGIC: Patient is awake, alert, oriented, communicative. Able to move all extremities. Bilateral legs, no edema, no ulcers. LABORATORY DATA: Sodium 141, potassium 4.2, chloride 110, CO2 of 24, BUN 11, creatinine 0.8, blood sugar of 123. Urinalysis is unremarkable. Had HIDA scan done that shows non-visualized gallbladder consistent with acute cholecystitis. ASSESSMENT: 1. Acute cholecystitis. 2. Cholelithiasis. 3. History of pulmonary embolism. 4. History of chronic obstructive pulmonary disease. 5. Hypertension. PLAN: Currently patient is on antibiotics. She is n.p.o., she is on IV fluid, analgesic as needed. Since patient took Eliquis, her procedure yesterday was postponed to tomorrow. She will be getting repeat CT scan with contrast. Depending on that, she will be planned to have ERCP scheduled for tomorrow. Silvio Smith MD
[2017-06-10] MEDS ORDERED: Oxycodone/Acetaminophen 5/325 mg Tab PO PRN (17:56)
[2017-06-10] MEDS: Morphine 2 mg/ml ISec IVP PRN (22:22)
--- NOTE | 2017-06-10 23:49 | PN ---
DATE: SUBJECTIVE: She is seen. This is an 81-year-old woman who had a dilated common duct - had symptomatic cholecystitis and has a dilated common duct and some elevated liver functions. Plan is for an ERCP. A CAT scan is done today showing a dilated common duct without apparent stones, it is 15 mm. There is no obstruction of the common duct on the HIDA scan. ERCP is planned. Liver function is markedly improved, white count is 6.6, hemoglobin 10.7, SGOT 82, ALT 104, otherwise pretty unremarkable. ERCP and eventually cholecystectomy is the monteiro plan. Toño Andujar MD
[2017-06-11] MEDS: Morphine 2 mg/ml ISec IVP PRN (06:14)
[2017-06-11] MEDS: metroNIDAZOLE IV 500 mg/100 ml 500 MG/100 ML BAG IVPB SCH ×3 (06:14→21:15)
[2017-06-11 06:51] LABS: BASO # 0.02 K/mm3 (0.0-2.0); BASO % 0.5 % (0.0-3.0); EOS # 0.2 (0.0-0.7); EOS % 3.7 % (1.5-5.0); GRAN # 2.75 (1.4-6.5); GRAN % 62.7 % (50.0-68.0); HEMOGLOBIN 11.4 g/dL (12.0-16.0); LYMPH # 1.2 (1.2-3.4); LYMPH % 26.3 % (22.0-35.0); MEAN CELL VOLUME 91.6 fl (80.0-105.0); MEAN CORPUSCULAR HEMOGLOBIN 29.9 pg (25.0-35.0); MEAN CORPUSCULAR HGB CONC 32.7 g/dl (31.0-37.0); MONO # 0.3 (0.1-0.6); MONO % 6.8 % (1.0-6.0); RBC 3.81 10^6/uL (3.5-6.1); RED CELL DISTRIBUTION WIDTH 13.1 % (11.5-14.5); WHITE BLOOD COUNT 4.4 10^3/ul (4.5-11.0)
[2017-06-11 07:43] LABS: ALB/GLOB RATIO 0.9 (1.1-1.8); ALBUMIN 3.3 g/dL (3.0-4.8); ALT/SGPT 77 U/L (7-56); AST/SGOT 50 U/L (14-36); BLOOD UREA NITROGEN 6 mg/dL (7-21); CALCIUM 9.6 mg/dL (8.4-10.5); GFR AFRICAN-AMERICAN > 60; GFR NON-AFRICAN AMERICAN > 60
[2017-06-11] MEDS: Insulin Lispro (humaLOG) MEDIUM Coverage SC SCH ×4 (08:19→22:00)
--- NOTE | 2017-06-11 09:16 | CP.PCM.PN ---
Subjective - Date & Time of Evaluation Date of Evaluation: 06/11/17 Time of Evaluation: 09:12 - Subjective Subjective: Surgery Pt s&e. NAEON. NPO for Endoscopy today. C/O Epigastric pain. Denies F/C/N/V/D/CP /SOB. + amb. + void. Objective - Vital Signs/Intake and Output Vital Signs (last 24 hours): Temp Pulse Resp BP Pulse Ox 97.7 F 62 18 136/63 97 06/11/17 08:03 06/11/17 08:03 06/11/17 08:03 06/11/17 08:03 06/11/17 08:03 Intake and Output: 06/11/17 06/11/17 06:59 18:59 Intake Total 960 Balance 960 - Medications Medications: Current Medications Sodium Chloride (Sodium Chloride 0.45%) 1,000 mls @ 75 mls/hr IV .[id number] [facility] Last Admin: 06/10/17 22:07 Dose: 75 mls/hr Metronidazole (Flagyl) 500 mg in 100 mls @ 100 mls/hr IVPB Q8 [facility] PRN Reason: Protocol Last Admin: 06/11/17 06:14 Dose: 100 mls/hr Levofloxacin/Dextrose (Levaquin 250mg) 250 mg in 50 mls @ 100 mls/hr IVPB DAILY [facility] PRN Reason: Protocol Last Admin: 06/10/17 10:59 Dose: 100 mls/hr Insulin Human Lispro (Humalog Med) 0 units SC ACHS [facility] PRN Reason: Protocol Last Admin: 06/11/17 08:19 Dose: Not Given Morphine Sulfate (Morphine) 2 mg IVP Q4H PRN PRN Reason: Pain, severe (8-10) Oxycodone/Acetaminophen (Percocet 5/325 Mg Tab) 1 tab PO Q6H PRN PRN Reason: Pain, moderate (4-7) Stop: 06/13/17 17:57 Last Admin: 06/10/17 18:23 Dose: 1 tab Pantoprazole Sodium (Protonix Inj) 40 mg IVP DAILY [facility] Last Admin: 06/10/17 10:57 Dose: 40 mg Timolol Maleate (Timoptic 0.5% Ophth Soln) 0 drop OU BID [facility] Last Admin: 03/15/18 17:44 Dose: 1 drop Ursodiol (Actigall) 300 mg PO 0800 [facility] Last Admin: 06/11/17 08:19 Dose: Not Given - Labs Labs: 06/11/17 06:15 06/11/17 06:15 PT 14.1 SECONDS (9.4-12.5) H 06/08/17 12:20 INR 1.22 (0.93-1.08) H 06/08/17 12:20 APTT 30.5 Seconds (25.1-36.5) 06/08/17 12:20 - Constitutional Appears: No Acute Distress - Head Exam Head Exam: ATRAUMATIC, NORMAL INSPECTION, NORMOCEPHALIC - Eye Exam Eye Exam: EOMI, Normal appearance, PERRL Pupil Exam: NORMAL ACCOMODATION, PERRL - ENT Exam ENT Exam: Mucous Membranes Moist, Normal Exam - Neck Exam Neck Exam: Full ROM, Normal Inspection. absent: Lymphadenopathy - Respiratory Exam Respiratory Exam: Clear to Ausculation Bilateral, NORMAL BREATHING PATTERN - Cardiovascular Exam Cardiovascular Exam: REGULAR RHYTHM, +S1, +S2. absent: Murmur - GI/Abdominal Exam GI & Abdominal Exam: Soft, Tenderness, Normal Bowel Sounds. absent: Distended, Firm, Guarding, Rigid, Hernia, Mass, Organomegaly, Pulsatile Mass, Rebound Additional comments: RUQ, EPigatric TTP. - Extremities Exam Extremities Exam: Full ROM, Normal Capillary Refill, Normal Inspection. absent : Joint Swelling, Pedal Edema - Back Exam Back Exam: NORMAL INSPECTION - Neurological Exam Neurological Exam: Alert, Awake, CN II-XII Intact, Normal Gait, Oriented x3 - Psychiatric Exam Psychiatric exam: Normal Affect, Normal Mood - Skin Skin Exam: Dry, Intact, Normal Color, Warm Assessment and Plan - Assessment and Plan (Free Text) Assessment: Cholecystitis with chronically dilated CBD w h/o pancreatic stent -HIDA : non visualized GB and visualized SB indicative of acute cholecystitis -US: gallstones -CT: 15mm CBD -LFT trending down -F/U Endoscopy this afternoon -trend LFT -Pain/nausea control -DVT /GI ppx Will DW Dr. buck
[2017-06-11] MEDS ORDERED: Magnesium Sulfate 1 gm in D5W 1 GM/100 ML BAG IVPB ONE (09:50)
[2017-06-11] MEDS: levoFLOXacin 250 mg in D5W 250 MG/50 ML BAG IVPB SCH (10:05)
[2017-06-11] MEDS ORDERED: Indomethacin 50 MG Suppository PR ONE (12:58)
[2017-06-11] MEDS ORDERED: Iohexol 240 (50 ml) ONE (12:59)
[2017-06-11] MEDS ORDERED: Glucagon Recombinant 1 mg Inj ONE (12:59)
[2017-06-11] MEDS ORDERED: Propofol 10 mg/ml Inj (20 ML) ONE ×2 (13:33)
[2017-06-11] MEDS ORDERED: Midazolam 2 MG/2 ML VIAL ONE (13:33)
[2017-06-11] MEDS ORDERED: Rocuronium 10 mg/ml (5 ml) ONE (13:35)
[2017-06-11] MEDS ORDERED: MetroNIDAZOLE 500 mg/100 ml IVPB ONE (14:00)
--- NOTE | 2017-06-11 15:42 | PN ---
DATE: SUBJECTIVE: The patient is 81 years old seen and examined, doing well, lying in bed, seems to be comfortable. No nausea or vomiting, no diarrhea. PHYSICAL EXAMINATION: VITAL SIGNS: She is afebrile, pulse 62, respirations 18, blood pressure 136/63. LUNGS: Bilateral good airflow. No rhonchi or crackles. HEART: S1, S2 audible. ABDOMEN: Soft, nontender. No rebound, no guarding. NEUROLOGIC: Patient is awake, alert, oriented, able to communicate. LABORATORY DATA: WBC is 4.4, hemoglobin 11.4, hematocrit 34.9, platelet of 167. Chemistry: Sodium 141, potassium 4, chloride 109, CO2 of 22, BUN 6, creatinine 0.7, blood sugar of 107, AST 50, ALT 77. ASSESSMENT: 1. Acute cholecystitis. 2. Choledocholithiasis. 3. Dilated common bile duct. 4. History of pulmonary embolism. 5. Non-visualized HIDA scan. 6. History of chronic obstructive pulmonary disease. PLAN: Patient is going for ERCP today. She is n.p.o., keep her on IV fluid. She is off of anticoagulant, that is Eliquis, that will be restarted once it is okay . Silvio Smith MD
[2017-06-11] MEDS ORDERED: Neostigmine Methylsulfate 3mg/3ml Syringe IV ONE (15:43)
[2017-06-11] MEDS ORDERED: Glycopyrrolate 0.2 mg/ml (2ml vial) ONE (15:44)
--- NOTE | 2017-06-11 17:17 | RAD ---
PROCEDURE: ERCP HISTORY: CBD STONES COMPARISON: None TECHNIQUE: Standard protocol for this study/examination. FINDINGS: Total fluoroscopic time (continuous mode) utilized during the procedure: 613.4 seconds. IMPRESSION: Submitted images from the current procedure: 6.0
[2017-06-11] MEDS: Sodium Chloride 0.9% 1,000 ML IV SCH (21:14)
[2017-06-12] MEDS: metroNIDAZOLE IV 500 mg/100 ml 500 MG/100 ML BAG IVPB SCH ×3 (06:14→21:22)
--- NOTE | 2017-06-12 06:37 | PN ---
DATE: 06/11/2017 SUBJECTIVE: This patient underwent endoscopic ultrasound examination and ERCP today. EUS revealed a large stone in the distal CBD. The duct was dilated. Pancrease otherwise remains unremarkable. The patient subsequently underwent an ERCP. Cholangiogram revealed large stone partially obstructing. This patient had a large stone in the dilated common bile duct. The patient would need SpyGlass and EHL The decision was made to place a 7-Bulgarian 9 cm stent . Good Bile drainage was noticed post stent palcement. IMPRESSION: Status post endoscopic retrograde cholangiopancreatography and placement of 7-Bulgarian pigtail 9 cm catheter. Patient would require SpyGlass and lithotripsy for the large stone. Discussed with Dr. Smith. Patient has a history of deep venous thrombosis and pulmonary embolism. Patient was on Elaquis Patient tolerated the procedure well, left to the recovery room. Patient would require repeat ERCP with SpyGlass. prior to cholecystectomy. Thank you very much. Tania Guevara MD [facility]
--- NOTE | 2017-06-12 08:38 | CP.PCM.PN ---
Subjective - Date & Time of Evaluation Date of Evaluation: 06/12/17 Time of Evaluation: 08:35 - Subjective Subjective: Surgery: Dr. Andujar Pt seen and examined. Underwent EUS/ERCP yesterday. Was found to have large stone in distal CBD. Pt still has mild abd discomfort. Otherwise no complaints. Objective - Vital Signs/Intake and Output Vital Signs (last 24 hours): Temp Pulse Resp BP Pulse Ox 97.8 F 61 18 144/71 98 06/11/17 23:21 06/11/17 23:21 06/11/17 23:21 06/11/17 23:21 06/11/17 23:21 Intake and Output: 06/12/17 06/12/17 06:59 18:59 Intake Total 480 Output Total 700 Balance -220 - Medications Medications: Current Medications Amlodipine Besylate (Norvasc) 10 mg PO DAILY [facility] Enoxaparin Sodium (Lovenox) 30 mg SC DAILY [facility] PRN Reason: Protocol Metronidazole (Flagyl) 500 mg in 100 mls @ 100 mls/hr IVPB Q8 [facility] PRN Reason: Protocol Last Admin: 06/12/17 06:14 Dose: 100 mls/hr Levofloxacin/Dextrose (Levaquin 250mg) 250 mg in 50 mls @ 100 mls/hr IVPB DAILY [facility] PRN Reason: Protocol Last Admin: 06/11/17 10:05 Dose: 100 mls/hr Sodium Chloride (Sodium Chloride 0.9%) 1,000 mls @ 100 mls/hr IV .Q10H [facility] Last Admin: 06/11/17 21:14 Dose: 100 mls/hr Insulin Human Lispro (Humalog Med) 0 units SC ACHS [facility] PRN Reason: Protocol Last Admin: 06/11/17 22:00 Dose: Not Given Morphine Sulfate (Morphine) 2 mg IVP Q4H PRN PRN Reason: Pain, severe (8-10) Oxycodone/Acetaminophen (Percocet 5/325 Mg Tab) 1 tab PO Q6H PRN PRN Reason: Pain, moderate (4-7) Stop: 06/13/17 17:57 Last Admin: 06/10/17 18:23 Dose: 1 tab Pantoprazole Sodium (Protonix Inj) 40 mg IVP DAILY [facility] Last Admin: 06/11/17 10:05 Dose: 40 mg Timolol Maleate (Timoptic 0.5% Ophth Soln) 0 drop OU BID [facility] Last Admin: 06/11/17 18:10 Dose: 1 drop Ursodiol (Actigall) 300 mg PO 0800 [facility] Last Admin: 06/11/17 08:19 Dose: Not Given - Labs Labs: 06/11/17 06:15 06/11/17 06:15 PT 14.1 SECONDS (9.4-12.5) H 06/08/17 12:20 INR 1.22 (0.93-1.08) H 06/08/17 12:20 APTT 30.5 Seconds (25.1-36.5) 06/08/17 12:20 - Constitutional Appears: Non-toxic, No Acute Distress - Head Exam Head Exam: ATRAUMATIC, NORMOCEPHALIC - Eye Exam Eye Exam: EOMI - ENT Exam ENT Exam: Mucous Membranes Moist - Neck Exam Neck Exam: Full ROM - Respiratory Exam Respiratory Exam: NORMAL BREATHING PATTERN. absent: Accessory Muscle Use, Respiratory Distress - GI/Abdominal Exam GI & Abdominal Exam: Soft, Tenderness (epigastric). absent: Distended, Firm, Guarding, Rigid, Rebound - Extremities Exam Extremities Exam: absent: Calf Tenderness, Pedal Edema - Neurological Exam Neurological Exam: Alert, Awake, Oriented x3 Assessment and Plan - Assessment and Plan (Free Text) Assessment: 81F w. cholecystits / choledocholithiais Plan: -repeat ERCP/spyglass w. GI next week -will continue to follow -no plans for surgical intervention at this time -d/w attending Zemaitis PGY3
[2017-06-12] MEDS: Insulin Lispro (humaLOG) MEDIUM Coverage SC SCH ×4 (08:59→21:26)
[2017-06-12] MEDS: Enoxaparin 30 mg Syringe SC SCH (09:57)
[2017-06-12] MEDS: levoFLOXacin 250 mg in D5W 250 MG/50 ML BAG IVPB SCH (10:01)
[2017-06-12] MEDS: Sodium Chloride 0.9% 1,000 ML IV SCH ×2 (13:02→17:36)
--- NOTE | 2017-06-12 21:12 | PN ---
DATE: 06/12/2017 SUBJECTIVE: The patient has no complaints of any chest pain. No shortness of breath. No headaches. She does complain of abdominal pain that comes and goes. She said the pain is controlled with medications. PHYSICAL EXAMINATION: VITAL SIGNS: Temperature is 98, pulse of 59, blood pressure is 126/58, respirations 20. GENERAL: The patient is lying in bed, flat, comfortable. HEENT: No oral lesion. Anicteric sclerae. Moist mucosa. NECK: No JVD, adenopathy, or thyromegaly. CARDIOVASCULAR: S1 and S2, regular. No murmurs, rubs, or gallops. LUNGS: Clear to auscultation bilaterally. No wheeze, rales, or rhonchi. ABDOMEN: Bowel sounds are positive, soft, nontender and nondistended. EXTREMITIES: No cyanosis, clubbing or edema. LABORATORY DATA: Reviewed. White count 4.4, hemoglobin 11.4. ERCP is also pending. ASSESSMENT: 1. Acute cholecystitis. 2. Choledocholithiasis. 3. History of pulmonary embolism. 4. Chronic obstructive pulmonary disease. 5. PENICILLIN ALLERGY. PLAN: The patient is going to be admitted to the hospital. The patient is on IV fluids. We will decrease the patient's IV fluids. She is going to be continuing on her Levaquin for antibiotics. She is on Uloric, this is going to be continued. She is on Lovenox for DVT prophylaxis. The patient is on timolol eyedrops for glaucoma. She is on a liquid diet, being followed by Surgery. We will await further input from GI and Surgery. Eric Rosales MD
[2017-06-12] MEDS: Morphine 2 mg/ml ISec IVP PRN (22:40)
--- NOTE | 2017-06-13 02:15 | PN ---
DATE: 06/12/2017 SUBJECTIVE: This patient was seen and evaluated earlier today. Patient's son was at bedside. Patient is complaining of mild abdominal discomfort, on clear liquid diet. PHYSICAL EXAMINATION: VITAL SIGNS: Temperature is 98, pulse 59, blood pressure 126/58. HEENT: Atraumatic, anicteric. NECK: Supple. HEART: S1, S2 heard. LUNGS: Bilateral air entry present. ABDOMEN: Soft. There is tenderness present in the epigastric area and right upper quadrant area. There is no rebound or guarding. EXTREMITIES: No edema. No cyanosis. LABORATORY DATA: There is no recent labs. IMPRESSION AND PLAN: 1. This is an 81-year-old patient admitted with abdominal pain, has gallstones, HIDA scan showed non-visualized gallbladder suggests of acute cholecystitis. Patient did have endoscopic ultrasound, endoscopic retrograde cholangiopancreatography examination yesterday, was found to have a large stone in the distal common bile duct area with a low takeoff of the cystic duct. Patient had endoscopic retrograde cholangiopancreatography and stent placement. Patient is scheduled for a SpyGlass lithotripsy on Wednesday for this large stone. Meanwhile, continue the antibiotics. 2. We will repeat the labs. 3. Patient has a history of pulmonary embolism and patient was on Eliquis. Patient is now on Lovenox 30 mg at nighttime. We will discuss with Dr. Rosales regarding the anticoagulation with Lovenox as the patient is scheduled for endoscopic retrograde cholangiopancreatography with SpyGlass on Wednesday. 4.We will also continue the Actigall. Thank you very much for allowing us to participate in the care of the patient. Tania Guevara MD [facility]
[2017-06-13] MEDS ORDERED: Alum-Mag Hydrox-Simethicone Susp (30 mL) PO ONE ×2 (04:45→20:12)
[2017-06-13] MEDS: metroNIDAZOLE IV 500 mg/100 ml 500 MG/100 ML BAG IVPB SCH ×3 (05:05→21:49)
[2017-06-13] MEDS: Morphine 2 mg/ml ISec IVP PRN ×2 (05:05→19:35)
[2017-06-13 07:28] LABS: HEMOGLOBIN 11.2 g/dL (12.0-16.0); MEAN CELL VOLUME 89.2 fl (80.0-105.0); MEAN CORPUSCULAR HEMOGLOBIN 30.1 pg (25.0-35.0); MEAN CORPUSCULAR HGB CONC 33.7 g/dl (31.0-37.0); MEAN PLATELET VOLUME 9.3 fl (7.0-11.0); RBC 3.72 10^6/uL (3.5-6.1); WHITE BLOOD COUNT 4.2 10^3/ul (4.5-11.0)
[2017-06-13 08:01] LABS: ALB/GLOB RATIO 0.9 (1.1-1.8); ALBUMIN 3.1 g/dL (3.0-4.8); ALT/SGPT 50 U/L (7-56); AMYLASE 57 U/L (35-125); AST/SGOT 37 U/L (14-36); BLOOD UREA NITROGEN 6 mg/dL (7-21); CALCIUM 9.3 mg/dL (8.4-10.5); GFR AFRICAN-AMERICAN > 60; GFR NON-AFRICAN AMERICAN > 60
[2017-06-13] MEDS: Insulin Lispro (humaLOG) MEDIUM Coverage SC SCH ×3 (08:06→16:11)
[2017-06-13] MEDS: Enoxaparin 30 mg Syringe SC SCH (09:30)
[2017-06-13] MEDS: levoFLOXacin 250 mg in D5W 250 MG/50 ML BAG IVPB SCH (09:31)
[2017-06-13] MEDS ORDERED: Potassium Chloride 20 mEq ER Tab PO ONE (14:07)
--- NOTE | 2017-06-13 15:04 | PN ---
DATE: 06/13/2017 SUBJECTIVE: The patient has no complaints of any chest pain. No shortness of breath. No headaches or dizziness. She says the abdominal pain comes and goes. PHYSICAL EXAMINATION: VITAL SIGNS: Temperature is 97.9, pulse is 65, blood pressure is 138/88, respiration is 21. GENERAL: The patient is lying in bed, flat, comfortable. HEENT: No oral lesion. Anicteric sclerae. Moist mucosa. NECK: No JVD, adenopathy, or thyromegaly. CARDIOVASCULAR: S1 and S2, regular. No murmurs, rubs, or gallops. LUNGS: Clear to auscultation bilaterally. No wheeze, rales, or rhonchi. ABDOMEN: Bowel sounds are positive, soft, nontender and nondistended. EXTREMITIES: No cyanosis, clubbing or edema. LABORATORY DATA: White count of 4.2, hemoglobin is 11.2. Creatinine is 0.7. ASSESSMENT: 1. Acute cholecystitis. 2. Choledocholithiasis. 3. Penicillin allergy. 4. History of pulmonary embolism. 5. Chronic obstructive pulmonary disease, stable. PLAN: The patient is currently comfortable. She is on Ursodiol. The patient is going to be continued on her Flagyl. She is being followed by Dr. Guevara. She is going to be continued on her Levaquin for antibiotics. She will most likely need an ERCP. She is going to be going for spyglass on Wednesday. She had been on Eliquis, but now is on Lovenox. She is on a liquid diet. I will increase her Lovenox because she was on Eliquis for anticoagulation for a PE. Eric Rosales MD
[2017-06-13] MEDS: Magnesium Oxide 400 mg Tab UD PO SCH (17:44)
[2017-06-13] MEDS: Sodium Chloride 0.9% 1,000 ML IV SCH (17:44)
[2017-06-13] MEDS: Enoxaparin 60 mg Syringe SC SCH (21:50)
[2017-06-14] MEDS: Morphine 2 mg/ml ISec IVP PRN ×2 (01:25→12:28)
--- NOTE | 2017-06-14 04:19 | CP.PCM.PN ---
Subjective - Date & Time of Evaluation Date of Evaluation: 06/13/17 Time of Evaluation: 20:00 - Subjective Subjective: pt is c/o abdominal pain epigastric, pt is admitted with acute cholecystitis has commomn bile duct stone. Objective - Vital Signs/Intake and Output Vital Signs (last 24 hours): Temp Pulse Resp BP Pulse Ox 98.0 F 63 20 149/75 99 06/13/17 14:30 06/13/17 14:30 06/13/17 14:30 06/13/17 14:30 06/13/17 14:30 Intake and Output: 06/13/17 06/14/17 18:59 06:59 Intake Total 900 Balance 900 - Medications Medications: Current Medications Amlodipine Besylate (Norvasc) 10 mg PO DAILY [facility] Last Admin: 06/13/17 09:31 Dose: 10 mg Enoxaparin Sodium (Lovenox) 60 mg SC Q12 [facility] PRN Reason: Protocol Last Admin: 06/13/17 21:50 Dose: 60 mg Levofloxacin/Dextrose (Levaquin 250mg) 250 mg in 50 mls @ 100 mls/hr IVPB DAILY [facility] PRN Reason: Protocol Last Admin: 06/13/17 09:31 Dose: 100 mls/hr Sodium Chloride (Sodium Chloride 0.9%) 1,000 mls @ 50 mls/hr IV .Q20H [facility] Last Admin: 06/13/17 17:44 Dose: 50 mls/hr Insulin Human Lispro (Humalog Med) 0 units SC ACHS [facility] PRN Reason: Protocol Last Admin: 06/13/17 16:11 Dose: Not Given Magnesium Oxide (Mag-Ox) 400 mg PO TID [facility] Stop: 06/16/17 18:01 Last Admin: 06/13/17 17:44 Dose: 400 mg Morphine Sulfate (Morphine) 2 mg IVP Q4H PRN PRN Reason: Pain, severe (8-10) Last Admin: 06/14/17 01:25 Dose: 2 mg Pantoprazole Sodium (Protonix Inj) 40 mg IVP DAILY [facility] Last Admin: 06/13/17 09:30 Dose: 40 mg Timolol Maleate (Timoptic 0.5% Ophth Soln) 0 drop OU BID [facility] Last Admin: 06/13/17 17:44 Dose: 1 drop Ursodiol (Actigall) 300 mg PO 0800 [facility] Last Admin: 06/13/17 09:30 Dose: 300 mg - Labs Labs: 06/13/17 07:00 06/13/17 07:00 PT 14.1 SECONDS (9.4-12.5) H 06/08/17 12:20 INR 1.22 (0.93-1.08) H 06/08/17 12:20 APTT 30.5 Seconds (25.1-36.5) 06/08/17 12:20 - Constitutional Appears: No Acute Distress - Head Exam Head Exam: NORMOCEPHALIC - Eye Exam Eye Exam: Normal appearance Pupil Exam: PERRL - ENT Exam ENT Exam: Mucous Membranes Moist - Neck Exam Neck Exam: Full ROM - Respiratory Exam Respiratory Exam: NORMAL BREATHING PATTERN - Cardiovascular Exam Cardiovascular Exam: RRR, +S1, +S2 - GI/Abdominal Exam GI & Abdominal Exam: Soft, Tenderness Additional comments: pt has tenderness in the epigastric region. - Rectal Exam Rectal Exam: Deferred - Extremities Exam Extremities Exam: Normal Inspection - Neurological Exam Neurological Exam: Alert, Awake - Psychiatric Exam Psychiatric exam: Flat Affect - Skin Skin Exam: Dry, Warm Assessment and Plan - Assessment and Plan (Free Text) Assessment: abdominal pain epigastric region. acute cholecystitis . cbd stone. Plan: morphine x1 stat . maalox 30 cc pox1.
[2017-06-14] MEDS: Insulin Lispro (humaLOG) MEDIUM Coverage SC SCH ×5 (04:44→22:03)
--- NOTE | 2017-06-14 05:42 | PN ---
DATE: 06/13/2017 SUBJECTIVE: This patient was seen and evaluated earlier today, has some epigastric discomfort. Otherwise unremarkable. PHYSICAL EXAMINATION: VITAL SIGNS: Temperature is 98, pulse is 63, blood pressure is 149/75. HEENT: Atraumatic, anicteric. NECK: Supple. HEART: S1, S2 heard. LUNGS: Bilateral air entry present. ABDOMEN: Soft. There is no mass palpable. There is tenderness present in the epigastric area. EXTREMITIES: No edema. No cyanosis. No clubbing. LABORATORY DATA: Hemoglobin 11.2, hematocrit 33.2, WBC 4.2, platelets 200. BUN 9, creatinine 0.7. LFTs shows downward trend. Total bilirubin is 7.6, AST is 37. Otherwise, unremarkable. Bile duct is normal. Creatinine is normal. Total bilirubin is only 1.4, normal. Magnesium is 1.6. IMPRESSION AND PLAN: 1. Supplement potassium and magnesium. 2. Continue the antibiotics. 3. The patient has a history of pulmonary embolism before and she was on Eliquis. I did discuss with Dr. Rosales. The dose has been adjusted to the therapeutic dose Lovenox. 4. The patient is scheduled for EUS /ERCP spyglass examination on Wednesday. Thank you very much for allowing us to participate in the care of the patient. Tania Guevara MD [facility]
[2017-06-14] MEDS: Enoxaparin 60 mg Syringe SC SCH ×2 (09:58→21:27)
[2017-06-14] MEDS: levoFLOXacin 250 mg in D5W 250 MG/50 ML BAG IVPB SCH (09:58)
[2017-06-14] MEDS: Magnesium Oxide 400 mg Tab UD PO SCH ×3 (09:59→17:14)
[2017-06-14] MEDS: Sodium Chloride 0.9% 1,000 ML IV SCH (10:00)
--- NOTE | 2017-06-14 10:12 | CP.PCM.PN ---
Subjective - Date & Time of Evaluation Date of Evaluation: 06/14/17 Time of Evaluation: 10:10 - Subjective Subjective: Surgery Pt s&e. NAEON. Pain controlled. Denies F/C/N/V/D/CP/SOB Objective - Vital Signs/Intake and Output Vital Signs (last 24 hours): Temp Pulse Resp BP Pulse Ox 98.1 F 62 18 137/61 100 06/14/17 07:30 06/14/17 07:30 06/14/17 07:30 06/14/17 09:59 06/14/17 07:30 Intake and Output: 06/14/17 06/14/17 06:59 18:59 Intake Total 1020 Balance 1020 - Medications Medications: Current Medications Amlodipine Besylate (Norvasc) 10 mg PO DAILY [facility] Last Admin: 06/14/17 09:59 Dose: 10 mg Enoxaparin Sodium (Lovenox) 60 mg SC Q12 [facility] PRN Reason: Protocol Last Admin: 06/14/17 09:58 Dose: 60 mg Levofloxacin/Dextrose (Levaquin 250mg) 250 mg in 50 mls @ 100 mls/hr IVPB DAILY [facility] PRN Reason: Protocol Last Admin: 06/14/17 09:58 Dose: 100 mls/hr Sodium Chloride (Sodium Chloride 0.9%) 1,000 mls @ 50 mls/hr IV .Q20H [facility] Last Admin: 06/14/17 10:00 Dose: 50 mls/hr Insulin Human Lispro (Humalog Med) 0 units SC ACHS [facility] PRN Reason: Protocol Last Admin: 06/14/17 08:03 Dose: Not Given Magnesium Oxide (Mag-Ox) 400 mg PO TID [facility] Stop: 06/16/17 18:01 Last Admin: 06/14/17 09:59 Dose: 400 mg Morphine Sulfate (Morphine) 2 mg IVP Q4H PRN PRN Reason: Pain, severe (8-10) Last Admin: 06/14/17 01:25 Dose: 2 mg Pantoprazole Sodium (Protonix Inj) 40 mg IVP DAILY [facility] Last Admin: 06/14/17 09:59 Dose: 40 mg Timolol Maleate (Timoptic 0.5% Ophth Soln) 0 drop OU BID [facility] Last Admin: 06/14/17 10:00 Dose: 1 drop Ursodiol (Actigall) 300 mg PO 0800 [facility] Last Admin: 06/14/17 08:03 Dose: 300 mg - Labs Labs: 06/13/17 07:00 06/13/17 07:00 PT 14.1 SECONDS (9.4-12.5) H 06/08/17 12:20 INR 1.22 (0.93-1.08) H 06/08/17 12:20 APTT 30.5 Seconds (25.1-36.5) 06/08/17 12:20 - Constitutional Appears: No Acute Distress - Head Exam Head Exam: ATRAUMATIC, NORMAL INSPECTION, NORMOCEPHALIC - Eye Exam Eye Exam: EOMI, Normal appearance, PERRL Pupil Exam: NORMAL ACCOMODATION, PERRL - ENT Exam ENT Exam: Mucous Membranes Moist, Normal Exam - Neck Exam Neck Exam: Full ROM, Normal Inspection. absent: Lymphadenopathy - Respiratory Exam Respiratory Exam: Clear to Ausculation Bilateral, NORMAL BREATHING PATTERN - Cardiovascular Exam Cardiovascular Exam: REGULAR RHYTHM, +S1, +S2. absent: Murmur - GI/Abdominal Exam GI & Abdominal Exam: Soft, Tenderness, Normal Bowel Sounds. absent: Distended Additional comments: Epigatric, RUQ TTP - Extremities Exam Extremities Exam: Full ROM - Back Exam Back Exam: NORMAL INSPECTION - Neurological Exam Neurological Exam: Alert, Awake, CN II-XII Intact, Normal Gait, Oriented x3 - Psychiatric Exam Psychiatric exam: Normal Affect, Normal Mood - Skin Skin Exam: Dry, Intact, Normal Color, Warm Assessment and Plan - Assessment and Plan (Free Text) Assessment: 81F w. cholecystits / choledocholithiais Plan: -repeat ERCP/spyglass w. GI on -will continue to follow -Poss Lap cortney after ERCP -WIll d/w attending
--- NOTE | 2017-06-14 10:52 | CP.PCM.PN ---
<Arnold Faye - Last Filed: 06/14/17 10:48> Subjective - Date & Time of Evaluation Date of Evaluation: 06/14/17 Time of Evaluation: 10:48 - Subjective Subjective: Gastroenterology Progress Note for Dr. Guevara This 81F was seen and examined this AM at bedside no acute events reported overnight. Chart reviewed. She is tolerating liquids. Denies abdominal lugo, fevers chills chest pain nausea vomiting. Objective - Vital Signs/Intake and Output Vital Signs (last 24 hours): Temp Pulse Resp BP Pulse Ox 98.1 F 62 18 137/61 100 06/14/17 07:30 06/14/17 07:30 06/14/17 07:30 06/14/17 09:59 06/14/17 07:30 Intake and Output: 06/14/17 06/14/17 06:59 18:59 Intake Total 1020 Balance 1020 - Medications Medications: Current Medications Amlodipine Besylate (Norvasc) 10 mg PO DAILY [facility] Last Admin: 06/14/17 09:59 Dose: 10 mg Enoxaparin Sodium (Lovenox) 60 mg SC Q12 [facility] PRN Reason: Protocol Last Admin: 06/14/17 09:58 Dose: 60 mg Levofloxacin/Dextrose (Levaquin 250mg) 250 mg in 50 mls @ 100 mls/hr IVPB DAILY [facility] PRN Reason: Protocol Last Admin: 06/14/17 09:58 Dose: 100 mls/hr Sodium Chloride (Sodium Chloride 0.9%) 1,000 mls @ 50 mls/hr IV .Q20H [facility] Last Admin: 06/14/17 10:00 Dose: 50 mls/hr Insulin Human Lispro (Humalog Med) 0 units SC ACHS [facility] PRN Reason: Protocol Last Admin: 06/14/17 08:03 Dose: Not Given Magnesium Oxide (Mag-Ox) 400 mg PO TID [facility] Stop: 06/16/17 18:01 Last Admin: 06/14/17 09:59 Dose: 400 mg Morphine Sulfate (Morphine) 2 mg IVP Q4H PRN PRN Reason: Pain, severe (8-10) Last Admin: 06/14/17 01:25 Dose: 2 mg Pantoprazole Sodium (Protonix Inj) 40 mg IVP DAILY [facility] Last Admin: 03/19/18 09:59 Dose: 40 mg Timolol Maleate (Timoptic 0.5% Ophth Soln) 0 drop OU BID [facility] Last Admin: 06/14/17 10:00 Dose: 1 drop Ursodiol (Actigall) 300 mg PO 0800 [facility] Last Admin: 06/14/17 08:03 Dose: 300 mg - Labs Labs: 06/13/17 07:00 06/13/17 07:00 PT 14.1 SECONDS (9.4-12.5) H 06/08/17 12:20 INR 1.22 (0.93-1.08) H 06/08/17 12:20 APTT 30.5 Seconds (25.1-36.5) 06/08/17 12:20 - Constitutional Appears: No Acute Distress - Head Exam Head Exam: ATRAUMATIC, NORMAL INSPECTION, NORMOCEPHALIC - ENT Exam ENT Exam: Mucous Membranes Moist, Normal Exam - Respiratory Exam Respiratory Exam: NORMAL BREATHING PATTERN - Cardiovascular Exam Cardiovascular Exam: +S1, +S2 - GI/Abdominal Exam GI & Abdominal Exam: Soft, Tenderness absent: Distended Additional comments: Epigatric, RUQ TTP - Extremities Exam Extremities Exam: Full ROM - Back Exam Back Exam: NORMAL INSPECTION - Psychiatric Exam Psychiatric exam: Normal Affect, Normal Mood - Skin Skin Exam: Dry, Intact, Normal Color, Warm Assessment and Plan - Assessment and Plan (Free Text) Assessment: 81F with choledocolisthiasis s/p ERCP with biliary stenting on 06/11 ERCP with spy glass and lithotripsy tomorrow NPO after midnight Hold lovenox this pm and tomorrow AM D/W Dr. Paola Faye PGY2 <Tania Guevara V - Last Filed: 06/14/17 23:54> Objective - Vital Signs/Intake and Output Vital Signs (last 24 hours): Temp Pulse Resp BP Pulse Ox 98.1 F 63 18 133/58 L 100 06/14/17 14:00 06/14/17 14:00 06/14/17 14:00 06/14/17 14:00 06/14/17 14:00 - Medications Medications: Current Medications Amlodipine Besylate (Norvasc) 10 mg PO DAILY [facility] Last Admin: 06/14/17 09:59 Dose: 10 mg Enoxaparin Sodium (Lovenox) 60 mg SC Q12 [facility] PRN Reason: Protocol Last Admin: 06/14/17 21:27 Dose: Not Given Levofloxacin/Dextrose (Levaquin 250mg) 250 mg in 50 mls @ 100 mls/hr IVPB DAILY [facility] PRN Reason: Protocol Last Admin: 06/14/17 09:58 Dose: 100 mls/hr Insulin Human Lispro (Humalog Med) 0 units SC ACHS [facility] PRN Reason: Protocol Last Admin: 06/14/17 22:03 Dose: Not Given Magnesium Oxide (Mag-Ox) 400 mg PO TID [facility] Stop: 06/16/17 18:01 Last Admin: 06/14/17 17:14 Dose: 400 mg Morphine Sulfate (Morphine) 2 mg IVP Q4H PRN PRN Reason: Pain, severe (8-10) Last Admin: 06/14/17 12:28 Dose: 2 mg Pantoprazole Sodium (Protonix Inj) 40 mg IVP DAILY [facility] Last Admin: 06/14/17 09:59 Dose: 40 mg Timolol Maleate (Timoptic 0.5% Ophth Soln) 0 drop OU BID [facility] Last Admin: 06/14/17 17:14 Dose: 1 drop Ursodiol (Actigall) 300 mg PO 0800 [facility] Last Admin: 06/14/17 08:03 Dose: 300 mg - Labs Labs: 06/13/17 07:00 06/14/17 08:35 PT 14.1 SECONDS (9.4-12.5) H 06/08/17 12:20 INR 1.22 (0.93-1.08) H 06/08/17 12:20 APTT 30.5 Seconds (25.1-36.5) 06/08/17 12:20 Attending/Attestation - Attestation I have personally seen and examined this patient.: Yes I have fully participated in the care of the patient.: Yes I have reviewed all pertinent clinical information, including history, physical exam and plan: Yes Notes (Text): This is an addendum to GI consult report dictated by the Finishing Area Supervisor.The patient was seen and examined earlier. Medical records, lab studies, imagings were reviewed. Last 24 hours events reviewed. Agreed with the above treatment plan as outlined in Finishing Area Supervisor 's notes the with the addition of the following 06/14/17 23:54
[2017-06-14 11:59] LABS: BLOOD UREA NITROGEN 4 mg/dL (7-21); CALCIUM 9.9 mg/dL (8.4-10.5); GFR AFRICAN-AMERICAN > 60; GFR NON-AFRICAN AMERICAN > 60
--- NOTE | 2017-06-14 17:54 | PN ---
DATE: 06/14/2017 SUBJECTIVE: The patient has no complaints of any chest pain. No shortness of breath. No headaches or dizziness. She says the abdominal pain is controlled. PHYSICAL EXAMINATION: VITAL SIGNS: Temperature is 98.1, pulse of 63, blood pressure is 123/58, respirations 18. GENERAL: The patient is lying in bed, flat, comfortable. HEENT: No oral lesion. Anicteric sclerae. Moist mucosa. NECK: No JVD, adenopathy, or thyromegaly. CARDIOVASCULAR: S1 and S2, regular. No murmurs, rubs, or gallops. LUNGS: Clear to auscultation bilaterally. No wheeze, rales, or rhonchi. ABDOMEN: Bowel sounds are positive, soft, nontender and nondistended. EXTREMITIES: No cyanosis, clubbing or edema. LABORATORY DATA: White count of 4.2, hemoglobin 11.2. ASSESSMENT: 1. Acute cholecystitis. 2. Choledocholithiasis. 3. Penicillin allergy. 4. History of pulmonary embolism. 5. Chronic obstructive pulmonary disease, stable. PLAN: The patient is currently comfortable. She is getting Levaquin for antibiotics. She is on Lovenox for anticoagulation to prevent PE. She is on magnesium. She is on morphine for pain. She is on Norvasc for hypertension. The patient is on Protonix daily. She is on IV fluids. She is on liquid diet. I will discontinue the patient's IV fluids at this point. The patient is going for ERCP tomorrow. Eric Rosales MD
[2017-06-15 07:00] LABS: HEMOGLOBIN 12.6 g/dL (12.0-16.0); MEAN CELL VOLUME 90.3 fl (80.0-105.0); MEAN CORPUSCULAR HEMOGLOBIN 30.7 pg (25.0-35.0); MEAN PLATELET VOLUME 9.5 fl (7.0-11.0); RBC 4.11 10^6/uL (3.5-6.1); RED CELL DISTRIBUTION WIDTH 13.2 % (11.5-14.5); WHITE BLOOD COUNT 4.8 10^3/ul (4.5-11.0)
[2017-06-15 07:26] LABS: INR 1.14 (0.93-1.08); PARTIAL THROMBOPLASTIN TIME 32.9 Seconds (25.1-36.5); PROTHROMBIN TIME 13.1 SECONDS (9.4-12.5)
[2017-06-15 07:28] LABS: ALB/GLOB RATIO 0.9 (1.1-1.8); ALBUMIN 3.3 g/dL (3.0-4.8); ALT/SGPT 40 U/L (7-56); AST/SGOT 39 U/L (14-36); BLOOD UREA NITROGEN 4 mg/dL (7-21); CALCIUM 9.8 mg/dL (8.4-10.5); GFR AFRICAN-AMERICAN > 60; GFR NON-AFRICAN AMERICAN > 60
[2017-06-15] MEDS: Insulin Lispro (humaLOG) MEDIUM Coverage SC SCH ×4 (08:04→22:01)
--- NOTE | 2017-06-15 08:33 | CP.PCM.PN ---
Subjective - Date & Time of Evaluation Date of Evaluation: 06/15/17 Time of Evaluation: 08:30 - Subjective Subjective: Surgery Pt s&e. NAEON. Pt scheduled for ERCP today. Denies F/C/N/V/D/CP/SOB. Objective - Vital Signs/Intake and Output Vital Signs (last 24 hours): Temp Pulse Resp BP Pulse Ox 98.1 F 63 18 133/58 L 100 06/14/17 14:00 06/14/17 14:00 06/14/17 14:00 06/14/17 14:00 06/14/17 14:00 Intake and Output: 06/15/17 06/15/17 06:59 18:59 Intake Total 180 Balance 180 - Medications Medications: Current Medications Amlodipine Besylate (Norvasc) 10 mg PO DAILY [facility] Last Admin: 06/14/17 09:59 Dose: 10 mg Enoxaparin Sodium (Lovenox) 60 mg SC Q12 [facility] PRN Reason: Protocol Last Admin: 06/14/17 21:27 Dose: Not Given Levofloxacin/Dextrose (Levaquin 250mg) 250 mg in 50 mls @ 100 mls/hr IVPB DAILY [facility] PRN Reason: Protocol Last Admin: 06/14/17 09:58 Dose: 100 mls/hr Insulin Human Lispro (Humalog Med) 0 units SC ACHS [facility] PRN Reason: Protocol Last Admin: 06/15/17 08:04 Dose: Not Given Magnesium Oxide (Mag-Ox) 400 mg PO TID [facility] Stop: 06/16/17 18:01 Last Admin: 06/14/17 17:14 Dose: 400 mg Morphine Sulfate (Morphine) 2 mg IVP Q4H [facility] PRN Reason: Pain, severe (8-10) Last Admin: 06/14/17 12:28 Dose: 2 mg Pantoprazole Sodium (Protonix Inj) 40 mg IVP DAILY [facility] Last Admin: 06/14/17 09:59 Dose: 40 mg Timolol Maleate (Timoptic 0.5% Ophth Soln) 0 drop OU BID [facility] Last Admin: 06/14/17 17:14 Dose: 1 drop Ursodiol (Actigall) 300 mg PO 0800 [facility] Last Admin: 06/15/17 08:04 Dose: Not Given - Labs Labs: 06/15/17 06:15 06/15/17 06:15 PT 13.1 SECONDS (9.4-12.5) H 06/15/17 06:15 INR 1.14 (0.93-1.08) H 06/15/17 06:15 APTT 32.9 Seconds (25.1-36.5) 06/15/17 06:15 - Constitutional Appears: No Acute Distress - Head Exam Head Exam: ATRAUMATIC, NORMAL INSPECTION, NORMOCEPHALIC - Eye Exam Eye Exam: EOMI, Normal appearance, PERRL Pupil Exam: NORMAL ACCOMODATION, PERRL - ENT Exam ENT Exam: Mucous Membranes Moist, Normal Exam - Neck Exam Neck Exam: Full ROM, Normal Inspection. absent: Lymphadenopathy - Respiratory Exam Respiratory Exam: Clear to Ausculation Bilateral, NORMAL BREATHING PATTERN - Cardiovascular Exam Cardiovascular Exam: REGULAR RHYTHM, +S1, +S2. absent: Murmur - GI/Abdominal Exam GI & Abdominal Exam: Soft, Tenderness, Normal Bowel Sounds. absent: Distended, Firm, Guarding, Rigid Additional comments: RUQ TTP - Extremities Exam Extremities Exam: Full ROM, Normal Capillary Refill, Normal Inspection. absent : Joint Swelling, Pedal Edema - Back Exam Back Exam: NORMAL INSPECTION - Neurological Exam Neurological Exam: Alert, Awake, CN II-XII Intact, Normal Gait, Oriented x3 - Psychiatric Exam Psychiatric exam: Normal Affect, Normal Mood - Skin Skin Exam: Dry, Intact, Normal Color, Warm Assessment and Plan - Assessment and Plan (Free Text) Assessment: 81F w. cholecystits / choledocholithiais Plan: -repeat ERCP/spyglass w. GI today -will continue to follow -Poss Lap cortney after ERCP -Will d/w attending
[2017-06-15] MEDS: levoFLOXacin 250 mg in D5W 250 MG/50 ML BAG IVPB SCH (10:35)
[2017-06-15] MEDS: Magnesium Oxide 400 mg Tab UD PO SCH ×3 (10:36→18:21)
[2017-06-15] MEDS: Enoxaparin 60 mg Syringe SC SCH ×2 (10:36→21:22)
[2017-06-15] MEDS ORDERED: Indomethacin 50 MG Suppository PR ONE (13:47)
[2017-06-15] MEDS ORDERED: Iohexol 240 (50 ml) ONE (13:48)
[2017-06-15] MEDS ORDERED: Sevoflurane - Inhalation Anesthetic Liq (250 ml) ONE (13:55)
[2017-06-15] MEDS ORDERED: Succinylcholine 200 mg/10 ml Inj IV ONE (14:16)
[2017-06-15] MEDS ORDERED: Propofol 10 mg/ml Inj (20 ML) ONE (14:16)
--- NOTE | 2017-06-15 14:27 | PN ---
DATE: SUBJECTIVE: The patient is an 81-year-old, seen and examined, lying in bed, seems to be comfortable. No nausea, vomiting or diarrhea. OBJECTIVE VITAL SIGNS: She is afebrile, pulse 82, respirations 20, blood pressure 139/76. LUNGS: Bilateral good airflow. No rhonchi or crackle. HEART: S1, S2 audible. No murmur. ABDOMEN: Soft, nontender. No rebound. No guarding. NEUROLOGICAL: She is awake, alert, oriented; able to communicate but forgetful. LABORATORY DATA: WBC 4.8, hemoglobin 12.6, hematocrit 37.1, platelet of 236,000. Chemistry: Sodium 142, potassium 3.8, chloride 107, CO2 27, BUN 4, creatinine 0.7. Blood sugar of 89. ASSESSMENT 1. Acute cholecystitis. 2. Cholelithiasis. 3. Status post endoscopic retrograde cholangiopancreatography and stent placement. 4. Chronic atrial fibrillation. 5. History of pulmonary embolism. 6. History of chronic obstructive pulmonary disease. PLAN: To have EUS and possible lithotripsy today. We will follow up the patient's electrolyte in the morning. Silvio Smith MD
[2017-06-15] MEDS ORDERED: ePHEDrine 50 mg/ml Inj ONE (15:10)
[2017-06-15] MEDS ORDERED: Sodium Chloride 0.9% 1,000 ML IV SCH (17:15)
[2017-06-15] MEDS ORDERED: Dextrose 5%/0.45% NS 1,000 ML IV SCH (20:00)
[2017-06-16 07:40] LABS: BASO # 0.01 K/mm3 (0.0-2.0); BASO % 0.2 % (0.0-3.0); EOS # 0.1 (0.0-0.7); EOS % 2.8 % (1.5-5.0); GRAN # 2.5 (1.4-6.5); GRAN % 53.2 % (50.0-68.0); HEMOGLOBIN 12.5 g/dL (12.0-16.0); LYMPH # 1.7 (1.2-3.4); LYMPH % 35.3 % (22.0-35.0); MEAN CELL VOLUME 91.9 fl (80.0-105.0); MEAN CORPUSCULAR HEMOGLOBIN 30.6 pg (25.0-35.0); MEAN CORPUSCULAR HGB CONC 33.2 g/dl (31.0-37.0); MEAN PLATELET VOLUME 9.9 fl (7.0-11.0); MONO # 0.4 (0.1-0.6); MONO % 8.5 % (1.0-6.0); RBC 4.09 10^6/uL (3.5-6.1); RED CELL DISTRIBUTION WIDTH 13.8 % (11.5-14.5); WHITE BLOOD COUNT 4.7 10^3/ul (4.5-11.0)
--- NOTE | 2017-06-16 07:54 | CP.PCM.PN ---
Subjective - Date & Time of Evaluation Date of Evaluation: 06/16/17 Time of Evaluation: 07:50 - Subjective Subjective: Surgery: Dr. Duncan Patient denies abdominal pain. Reports hunger. She denies n/v/f/c. Objective - Vital Signs/Intake and Output Vital Signs (last 24 hours): Temp Pulse Resp BP Pulse Ox 98.4 F 80 19 139/72 99 06/15/17 17:45 06/15/17 17:45 06/15/17 17:45 06/15/17 17:45 06/15/17 17:45 Intake and Output: 06/16/17 06/16/17 06:59 18:59 Intake Total 720 Balance 720 - Medications Medications: Current Medications Amlodipine Besylate (Norvasc) 10 mg PO DAILY [facility] Last Admin: 06/15/17 10:29 Dose: 10 mg Enoxaparin Sodium (Lovenox) 60 mg SC Q12H [facility] PRN Reason: Protocol Last Admin: 06/15/17 21:22 Dose: 60 mg Levofloxacin/Dextrose (Levaquin 250mg) 250 mg in 50 mls @ 100 mls/hr IVPB DAILY [facility] PRN Reason: Protocol Last Admin: 06/15/17 10:35 Dose: 100 mls/hr Dextrose/Sodium Chloride (Dextrose 5%/0.45% Ns 1000 Ml) 1,000 mls @ 60 mls/hr IV .[id number] [facility] Last Admin: 06/15/17 21:21 Dose: 60 mls/hr Insulin Human Lispro (Humalog Med) 0 units SC ACHS [facility] PRN Reason: Protocol Last Admin: 06/15/17 22:01 Dose: Not Given Magnesium Oxide (Mag-Ox) 400 mg PO TID [facility] Stop: 06/16/17 18:01 Last Admin: 06/15/17 18:21 Dose: Not Given Morphine Sulfate (Morphine) 2 mg IVP Q4H [facility] PRN Reason: Pain, severe (8-10) Last Admin: 06/14/17 12:28 Dose: 2 mg Pantoprazole Sodium (Protonix Inj) 40 mg IVP DAILY [facility] Last Admin: 06/15/17 10:30 Dose: 40 mg Timolol Maleate (Timoptic 0.5% Ophth Soln) 0 drop OU BID [facility] Last Admin: 06/15/17 18:32 Dose: Not Given Ursodiol (Actigall) 300 mg PO 0800 [facility] Last Admin: 06/15/17 08:04 Dose: Not Given - Labs Labs: 06/16/17 06:50 06/15/17 06:15 PT 13.1 SECONDS (9.4-12.5) H 06/15/17 06:15 INR 1.14 (0.93-1.08) H 06/15/17 06:15 APTT 32.9 Seconds (25.1-36.5) 06/15/17 06:15 - Constitutional Appears: Non-toxic, No Acute Distress - Head Exam Head Exam: ATRAUMATIC, NORMOCEPHALIC - Eye Exam Eye Exam: EOMI, Normal appearance - ENT Exam ENT Exam: Mucous Membranes Moist - Respiratory Exam Respiratory Exam: NORMAL BREATHING PATTERN. absent: Respiratory Distress - Cardiovascular Exam Cardiovascular Exam: REGULAR RHYTHM. absent: Tachycardia - GI/Abdominal Exam GI & Abdominal Exam: Soft. absent: Distended, Tenderness, Rebound - Extremities Exam Extremities Exam: Normal Inspection. absent: Calf Tenderness - Neurological Exam Neurological Exam: Alert, Awake - Psychiatric Exam Psychiatric exam: Normal Affect, Normal Mood - Skin Skin Exam: Dry, Warm Assessment and Plan - Assessment and Plan (Free Text) Assessment: 81F w/ choledocholithiasis s/p ERCP Plan: -ok for diet -plan for OR Wednesday -NPO pmn on -daily labs -further recs per Dr. Perla Paiz PGY3
[2017-06-16 08:00] LABS: ALB/GLOB RATIO 0.9 (1.1-1.8); ALBUMIN 3.2 g/dL (3.0-4.8); ALT/SGPT 40 U/L (7-56); AMYLASE 62 U/L (35-125); AST/SGOT 41 U/L (14-36); BLOOD UREA NITROGEN 6 mg/dL (7-21); CALCIUM 9.5 mg/dL (8.4-10.5); GFR AFRICAN-AMERICAN > 60; GFR NON-AFRICAN AMERICAN > 60
[2017-06-16] MEDS: Magnesium Oxide 400 mg Tab UD PO SCH ×3 (10:20→17:57)
[2017-06-16] MEDS: Enoxaparin 60 mg Syringe SC SCH ×2 (10:22→21:22)
[2017-06-16] MEDS: Insulin Lispro (humaLOG) MEDIUM Coverage SC SCH ×4 (10:25→22:00)
[2017-06-16] MEDS: levoFLOXacin 250 mg in D5W 250 MG/50 ML BAG IVPB SCH (10:55)
--- NOTE | 2017-06-16 12:43 | CP.PCM.PN ---
<Arnold Faye - Last Filed: 06/16/17 12:39> Subjective - Date & Time of Evaluation Date of Evaluation: 06/16/17 Time of Evaluation: 12:39 - Subjective Subjective: GI Progress Note for Dr. Guevara This 81F was seen and examined this AM at bedside no acute events overnight. She was sitting up in her poncho requesting a diet Denies any fevers chills chest pain abdominal pain nausea vomiting or diarrhea. Objective - Vital Signs/Intake and Output Vital Signs (last 24 hours): Temp Pulse Resp BP Pulse Ox 98.7 F 76 20 120/70 94 L 06/16/17 08:27 06/16/17 08:27 06/16/17 08:27 06/16/17 10:21 06/16/17 08:27 Intake and Output: 06/16/17 06/16/17 06:59 18:59 Intake Total 720 Balance 720 - Medications Medications: Current Medications Amlodipine Besylate (Norvasc) 10 mg PO DAILY [facility] Last Admin: 06/16/17 10:21 Dose: 10 mg Enoxaparin Sodium (Lovenox) 60 mg SC Q12H [facility] PRN Reason: Protocol Last Admin: 06/16/17 10:22 Dose: 60 mg Levofloxacin/Dextrose (Levaquin 250mg) 250 mg in 50 mls @ 100 mls/hr IVPB DAILY [facility] PRN Reason: Protocol Last Admin: 06/15/17 10:35 Dose: 100 mls/hr Dextrose/Sodium Chloride (Dextrose 5%/0.45% Ns 1000 Ml) 1,000 mls @ 60 mls/hr IV .[id number] [facility] Last Admin: 06/15/17 21:21 Dose: 60 mls/hr Insulin Human Lispro (Humalog Med) 0 units SC ACHS [facility] PRN Reason: Protocol Last Admin: 06/16/17 10:25 Dose: Not Given Magnesium Oxide (Mag-Ox) 400 mg PO TID [facility] Stop: 06/16/17 18:01 Last Admin: 06/16/17 10:20 Dose: 400 mg Morphine Sulfate (Morphine) 2 mg IVP Q4H PRN PRN Reason: Pain, severe (8-10) Last Admin: 06/14/17 12:28 Dose: 2 mg Pantoprazole Sodium (Protonix Inj) 40 mg IVP DAILY [facility] Last Admin: 06/15/17 10:30 Dose: 40 mg Timolol Maleate (Timoptic 0.5% Ophth Soln) 0 drop OU BID [facility] Last Admin: 06/16/17 10:43 Dose: 1 drop Ursodiol (Actigall) 300 mg PO 0800 [facility] Last Admin: 06/16/17 08:24 Dose: 300 mg - Labs Labs: 06/16/17 06:50 06/16/17 06:50 PT 13.1 SECONDS (9.4-12.5) H 06/15/17 06:15 INR 1.14 (0.93-1.08) H 06/15/17 06:15 APTT 32.9 Seconds (25.1-36.5) 06/15/17 06:15 Vital Signs, LFTs, Labs within normal limits. - Constitutional Appears: Non-toxic, No Acute Distress - Head Exam Head Exam: ATRAUMATIC, NORMOCEPHALIC - Eye Exam Eye Exam: EOMI, Normal appearance - ENT Exam ENT Exam: Mucous Membranes Moist - Respiratory Exam Respiratory Exam: NORMAL BREATHING PATTERN. absent: Respiratory Distress - Cardiovascular Exam Cardiovascular Exam: REGULAR RHYTHM. absent: Tachycardia - GI/Abdominal Exam GI & Abdominal Exam: Soft. absent: Distended, Tenderness, Rebound - Extremities Exam Extremities Exam: Normal Inspection. absent: Calf Tenderness - Neurological Exam Neurological Exam: Alert, Awake - Psychiatric Exam Psychiatric exam: Normal Affect, Normal Mood - Skin Skin Exam: Dry, Warm Assessment and Plan - Assessment and Plan (Free Text) Assessment: 81F with choledocolisthiais S/P ERCP w/ biliary stent S/P Stent removal S/P ERCP with spy glass and lithotripsy and baloon dilation of ampula Doing well Plan OK for low fat diet D/C fluids when pt take PO intake D/W Dr. Paola Faye PGY2 <Tania Guevara V - Last Filed: 06/16/17 20:30> Objective - Vital Signs/Intake and Output Vital Signs (last 24 hours): Temp Pulse Resp BP Pulse Ox 98.7 F 76 20 120/70 94 L 06/16/17 08:27 06/16/17 08:27 06/16/17 08:27 06/16/17 10:21 06/16/17 08:27 - Medications Medications: Current Medications Amlodipine Besylate (Norvasc) 10 mg PO DAILY [facility] Last Admin: 06/16/17 10:21 Dose: 10 mg Enoxaparin Sodium (Lovenox) 60 mg SC Q12H [facility] PRN Reason: Protocol Last Admin: 06/16/17 10:22 Dose: 60 mg Levofloxacin/Dextrose (Levaquin 250mg) 250 mg in 50 mls @ 100 mls/hr IVPB DAILY [facility] PRN Reason: Protocol Last Admin: 06/16/17 10:55 Dose: 100 mls/hr Dextrose/Sodium Chloride (Dextrose 5%/0.45% Ns 1000 Ml) 1,000 mls @ 60 mls/hr IV .[id number] [facility] Last Admin: 06/15/17 21:21 Dose: 60 mls/hr Lactated Ringer's (Lactated Ringer's) 1,000 mls @ 100 mls/hr IV .Q10H [facility] Insulin Human Lispro (Humalog Med) 0 units SC ACHS [facility] PRN Reason: Protocol Last Admin: 06/16/17 18:55 Dose: Not Given Morphine Sulfate (Morphine) 2 mg IVP Q4H PRN PRN Reason: Pain, severe (8-10) Last Admin: 06/16/17 18:59 Dose: 2 mg Pantoprazole Sodium (Protonix Inj) 40 mg IVP DAILY [facility] Last Admin: 06/16/17 10:55 Dose: 40 mg Timolol Maleate (Timoptic 0.5% Ophth Soln) 0 drop OU BID [facility] Last Admin: 06/16/17 18:38 Dose: 1 drop Ursodiol (Actigall) 300 mg PO 0800 [facility] Last Admin: 06/16/17 08:24 Dose: 300 mg - Labs Labs: 06/16/17 06:50 06/16/17 06:50 PT 13.1 SECONDS (9.4-12.5) H 06/15/17 06:15 INR 1.14 (0.93-1.08) H 06/15/17 06:15 APTT 32.9 Seconds (25.1-36.5) 06/15/17 06:15 Attending/Attestation - Attestation I have personally seen and examined this patient.: Yes I have fully participated in the care of the patient.: Yes I have reviewed all pertinent clinical information, including history, physical exam and plan: Yes Notes (Text): This is an addendum to GI progress report dictated by the Internist.The patient was seen and examined earlier. Medical records, lab studies, imagings were reviewed. Last 24 hours events reviewed. Agreed with the above treatment plan as outlined in Internist 's notes the with the addition of the following On examination abdomen soft no tenderness Blood loss a diet and explain LFTs normalized Continue Actigall Surgical follow-up for cholecystectomy Anticoagulation presumed. Patient is presently on Lovenox 06/16/17 20:29
--- NOTE | 2017-06-16 12:48 | RAD ---
PROCEDURE: ERCP HISTORY: CBD OBST / SPYGLASS COMPARISON: None TECHNIQUE: Total fluoroscopic time (continuous mode) utilized during the procedure: 855.3 seconds FINDINGS: Total exam DLP: (mGy) 224.81 IMPRESSION: Submitted images from the current procedure: Greater than 20
--- NOTE | 2017-06-16 17:35 | PN ---
DATE: SUBJECTIVE: The patient is 81 years old seen and examined, status post ERCP and EUS, undergone lithotripsy and was found to have common bile duct stone swept. Patient is scheduled to have cholecystectomy done on Wednesday. PHYSICAL EXAMINATION: GENERAL: Today, she is awake, alert, oriented, communicative. VITAL SIGNS: She is afebrile, pulse 76, respirations 20, blood pressure 120/70. LUNGS: Bilateral good airflow. No rhonchi or crackles. HEART: S1, S2 audible. ABDOMEN: Soft, nontender. No rebound, no guarding. NEUROLOGIC: Patient is awake, alert, oriented, communicative. LABORATORY DATA: WBC is 4.7, hemoglobin 12.5, hematocrit 37.6, platelets 53. Chemistry: Sodium 143, potassium 3.7, chloride 106, CO2 of 27, BUN 6, creatinine 0.8, blood sugar 141. Patient's urinalysis is unremarkable. ASSESSMENT: 1. Acute cholecystitis. 2. Common bile duct stone, status post endoscopic retrograde cholangiopancreatography and lithotripsy. 3. Chronic atrial fibrillation. 4. History of pulmonary embolism. 5. Hypertension. 6. Hyperlipidemia. 7. History of chronic obstructive pulmonary disease. PLAN: Patient is currently off Eliquis. She is on Actigall. We will keep her on IV fluids. We will start her on liquid diet and her LFT seems to be in good range. Continue on Levaquin. She is on Lovenox 60 mg q. 12, we will give it until tomorrow morning and patient is scheduled to have laparoscopic cholecystectomy done on Wednesday. Silvio Smith MD
[2017-06-16] MEDS: Morphine 2 mg/ml ISec IVP PRN (18:59)
[2017-06-17 08:15] LABS: EOS # 0.2 (0.0-0.7); GRAN # 1.83 (1.4-6.5); GRAN % 48.6 % (50.0-68.0); HEMOGLOBIN 11.3 g/dL (12.0-16.0); LYMPH # 1.5 (1.2-3.4); MEAN CELL VOLUME 91.8 fl (80.0-105.0); MEAN CORPUSCULAR HEMOGLOBIN 30.1 pg (25.0-35.0); MEAN CORPUSCULAR HGB CONC 32.8 g/dl (31.0-37.0); MEAN PLATELET VOLUME 9.1 fl (7.0-11.0); MONO # 0.2 (0.1-0.6); MONO % 6.4 % (1.0-6.0); RBC 3.76 10^6/uL (3.5-6.1); RED CELL DISTRIBUTION WIDTH 13.5 % (11.5-14.5); WHITE BLOOD COUNT 3.8 10^3/ul (4.5-11.0)
[2017-06-17 08:31] LABS: ALB/GLOB RATIO 0.9 (1.1-1.8); ALBUMIN 2.9 g/dL (3.0-4.8); ALT/SGPT 36 U/L (7-56); AST/SGOT 28 U/L (14-36); BLOOD UREA NITROGEN 5 mg/dL (7-21); GFR AFRICAN-AMERICAN > 60; GFR NON-AFRICAN AMERICAN > 60
[2017-06-17] MEDS: Lactated Ringer's 1,000 ML IV SCH (09:24)
[2017-06-17] MEDS: Insulin Lispro (humaLOG) MEDIUM Coverage SC SCH ×3 (10:23→22:43)
[2017-06-17] MEDS: levoFLOXacin 250 mg in D5W 250 MG/50 ML BAG IVPB SCH (10:28)
[2017-06-17] MEDS ORDERED: Propofol 10 mg/ml Inj (20 ML) ONE ×2 (18:00→20:43)
[2017-06-17] MEDS ORDERED: Rocuronium 10 mg/ml (5 ml) ONE (18:00)
[2017-06-17] MEDS ORDERED: Bupivacaine 0.5% Inj(30mL) ONE (18:44)
[2017-06-17] MEDS ORDERED: Iohexol 240 (50 ml) ONE (18:44)
[2017-06-17] MEDS ORDERED: Midazolam 2 MG/2 ML VIAL ONE (18:58)
[2017-06-17] MEDS ORDERED: levoFLOXacin 500 mg in D5W 500 MG/100 ML BAG IVPB ONE (19:10)
[2017-06-17] MEDS ORDERED: Morphine 2 mg/ml ISec IVP PRN (19:16)
[2017-06-17] MEDS ORDERED: Lactated Ringer's 1,000 ML IV SCH ×2 (19:30→20:30)
[2017-06-17] MEDS ORDERED: HYDROmorphone 0.5 mg/0.5 ml ISec IVP PRN (20:21)
[2017-06-17] MEDS ORDERED: Neostigmine Methylsulfate 3mg/3ml Syringe IV ONE (20:32)
[2017-06-17] MEDS ORDERED: Esmolol 100 mg/10ml Inj IV ONE (21:02)
[2017-06-17] MEDS ORDERED: HYDROmorphone 0.5 mg/0.5 ml ISec ONE ×3 (21:40→22:13)
[2017-06-17] MEDS ORDERED: HYDROmorphone 0.5 mg/0.5 ml ISec IVP ONE ×3 (21:41→22:14)
[2017-06-17] MEDS ORDERED: metroNIDAZOLE IV 500 mg/100 ml 500 MG/100 ML BAG ONE (21:52)
--- NOTE | 2017-06-17 21:54 | PCM.SURG1 ---
Surgeon's Initial Post Op Note - Surgeon's Notes Surgeon: Dr. Duncan Sponge Clipper: Dr. Lackey PGY3 Type of Anesthesia: General Endo Anesthesia Administered By: Dr. Beck Pre-Operative Diagnosis: cholelithiasis, chronic cholecystits Operative Findings: extensive dense intra-abdominal adhesions, hernia mesh, 4 enterotomies (3 colon, 1 small bowel) Post-Operative Diagnosis: same Operation Performed: laparoscopy with extensive lysis of adhesions conversion to exploratory laparotomy, lysis of adhesions, 3 colotomies and 1 enterotomy repaired primarily, with open cholecystectomy and partial hernia mesh removal Specimen/Specimens Removed: gallbladder Estimated Blood Loss: EBL {In ML}: 40 Blood Products Given: N/A Drains Used: Elder Post-Op Condition: Fair Date of Surgery/Procedure: 06/17/17 Time of Surgery/Procedure: 21:54
[2017-06-17] MEDS: metroNIDAZOLE IV 500 mg/100 ml 500 MG/100 ML BAG IVPB SCH (22:00)
[2017-06-17 22:08] LABS: HEMOGLOBIN 12.4 g/dL (12.0-16.0); MEAN CELL VOLUME 92.6 fl (80.0-105.0); MEAN CORPUSCULAR HEMOGLOBIN 30.5 pg (25.0-35.0); MEAN PLATELET VOLUME 9.1 fl (7.0-11.0); RBC 4.06 10^6/uL (3.5-6.1); RED CELL DISTRIBUTION WIDTH 13.5 % (11.5-14.5); WHITE BLOOD COUNT 9.8 10^3/ul (4.5-11.0)
[2017-06-17 22:18] LABS: ALB/GLOB RATIO 0.9 (1.1-1.8); ALBUMIN 2.9 g/dL (3.0-4.8); ALT/SGPT 35 U/L (7-56); AST/SGOT 32 U/L (14-36); BLOOD UREA NITROGEN 5 mg/dL (7-21); GFR AFRICAN-AMERICAN > 60; GFR NON-AFRICAN AMERICAN > 60
--- NOTE | 2017-06-17 22:28 | PN ---
DATE: SUBJECTIVE: The patient is 81 years old, seen and examined, lying in bed, seems to be comfortable. No nausea or vomiting. No diarrhea. Scheduled for cholecystectomy today. PHYSICAL EXAMINATION: VITAL SIGNS: She is afebrile, pulse 64, respirations 19, blood pressure 121/69. LUNGS: Bilateral good airflow. No rhonchi or crackles. HEART: S1, S2 audible. ABDOMEN: Soft, slight epigastric discomfort. NEUROLOGIC: She is awake, alert, oriented and communicative. LABORATORY DATA: WBC is 3.8, hemoglobin 11.3, hematocrit 34.5, platelets of 229. Chemistry: Sodium 141, potassium 3.8, chloride 108, CO2 25, BUN 5, creatinine 0.7, blood sugar of 89. ASSESSMENT: 1. Acute cholecystitis, status post endoscopic retrograde cholangiopancreatography, stent replacement and ampullary sphincterotomy. 2. History of pulmonary embolism. 3. History of hypertension. PLAN: Patient is currently n.p.o. She is getting IV fluids. The patient will have lap cortney done today. We will monitor her electrolytes, CBC, CMP, LFTs and once okay with surgical team, we will restart patient on Eliquis. Silvio Smith MD
[2017-06-17 22:29] LABS: TROPONIN I < 0.01 ng/mL
[2017-06-17] MEDS ORDERED: Magnesium Sulfate 2 GM in Sodium Chloride 0.9% 100 ML IVPB ONE (22:29)
[2017-06-18] MEDS: HYDROmorphone 0.5 mg/0.5 ml ISec IVP PRN ×6 (01:23→21:10)
[2017-06-18] MEDS: metroNIDAZOLE IV 500 mg/100 ml 500 MG/100 ML BAG IVPB SCH ×3 (05:16→21:09)
[2017-06-18] MEDS: Lactated Ringer's 1,000 ML IV SCH (05:44)
[2017-06-18 07:37] LABS: HEMOGLOBIN 12.3 g/dL (12.0-16.0); MEAN CELL VOLUME 92.4 fl (80.0-105.0); MEAN CORPUSCULAR HEMOGLOBIN 30.3 pg (25.0-35.0); MEAN CORPUSCULAR HGB CONC 32.8 g/dl (31.0-37.0); MEAN PLATELET VOLUME 9.6 fl (7.0-11.0); RBC 4.06 10^6/uL (3.5-6.1); RED CELL DISTRIBUTION WIDTH 13.3 % (11.5-14.5); WHITE BLOOD COUNT 17.1 10^3/ul (4.5-11.0)
[2017-06-18 08:04] LABS: ALB/GLOB RATIO 0.9 (1.1-1.8); ALBUMIN 3.1 g/dL (3.0-4.8); ALT/SGPT 38 U/L (7-56); AST/SGOT 39 U/L (14-36); BLOOD UREA NITROGEN 7 mg/dL (7-21); CALCIUM 8.8 mg/dL (8.4-10.5); GFR AFRICAN-AMERICAN > 60; GFR NON-AFRICAN AMERICAN > 60
--- NOTE | 2017-06-18 08:25 | PN ---
DATE: 06/17/2017 SUBJECTIVE: This patient was seen and evaluated earlier today. In the a.m., patient was scheduled to go for OR. PHYSICAL EXAMINATION: VITAL SIGNS: Afebrile, temperature 97.6; pulse 64; blood pressure is 118/65; respirations 19; O2 saturation 99. HEENT: Atraumatic, anicteric. NECK: Supple. HEART: S1 and S2 heard. LUNGS: Bilateral air entry present. ABDOMEN: Soft. There is no mass palpable. No tenderness. EXTREMITIES: No edema. No cyanosis. NEUROLOGIC: Alert, oriented. Moves all the extremities. LABORATORY DATA: Hemoglobin 11.3, hematocrit 34.5, WBC 3.8, platelets 229. Chemistry is essentially unremarkable: LFTs normal. Albumin is 2.5. IMPRESSION: Status post endoscopic retrograde cholangiopancreatography SpyGlass and electrohydraulic lithotripsy of the large common bile duct stone. Patient is doing well. Liver function test is normalized. Scheduled for OR today. Patient is on anticoagulation, Lovenox, for history of pulmonary embolism. We will continue to closely follow up his care and suggest further management based on the clinical course. Tania Guevara MD
[2017-06-18] MEDS: Insulin Lispro (humaLOG) MEDIUM Coverage SC SCH ×4 (08:30→21:26)
--- NOTE | 2017-06-18 09:21 | RAD ---
HISTORY: post op COMPARISON: 06/08/2017 FINDINGS: LUNGS: No active pulmonary disease. PLEURA: No significant pleural effusion identified, no pneumothorax apparent. CARDIOVASCULAR: Mild vascular congestion OSSEOUS STRUCTURES: No significant abnormalities. VISUALIZED UPPER ABDOMEN: Normal. OTHER FINDINGS: Dual lead pacemaker IMPRESSION: Mild vascular congestion
[2017-06-18] MEDS ORDERED: Lactated Ringer's 1,000 ML IV SCH (09:42)
[2017-06-18] MEDS: levoFLOXacin 250 mg in D5W 250 MG/50 ML BAG IVPB SCH (09:57)
[2017-06-18] MEDS: Enoxaparin 60 mg Syringe SC SCH ×2 (11:00→21:13)
--- NOTE | 2017-06-18 11:00 | CP.PCM.PN ---
<Jaclyn Goss - Last Filed: 06/18/17 11:00> Subjective - Date & Time of Evaluation Date of Evaluation: 06/18/17 Time of Evaluation: 09:30 - Subjective Subjective: Seen and examined at the bedside earlier today, chart reviewed. Patient underwent a open cholecystectomy yesterday with lysis of adhesions. Postop day #1. Patient with no complaints of nausea, vomiting, pain under control. Witnessed patient belching and patient does report flatus. No acute overnight events reported. No reports of BM yet. Objective - Vital Signs/Intake and Output Vital Signs (last 24 hours): Temp Pulse Resp BP Pulse Ox 98.0 F 46 L 18 122/65 95 06/18/17 07:30 06/18/17 07:30 06/18/17 07:30 06/18/17 09:46 06/18/17 07:30 Intake and Output: 06/18/17 06/18/17 06:59 18:59 Intake Total 800 Output Total 830 Balance -30 - Medications Medications: Current Medications Amlodipine Besylate (Norvasc) 10 mg PO DAILY [facility] Last Admin: 06/18/17 09:46 Dose: 10 mg Enoxaparin Sodium (Lovenox) 60 mg SC Q12H [facility] PRN Reason: Protocol Last Admin: 06/16/17 21:22 Dose: 60 mg Hydromorphone HCl (Dilaudid) 0.5 mg IVP Q4H PRN PRN Reason: Pain, severe (8-10) Last Admin: 06/18/17 08:26 Dose: 0.5 mg Levofloxacin/Dextrose (Levaquin 250mg) 250 mg in 50 mls @ 100 mls/hr IVPB DAILY [facility] PRN Reason: Protocol Last Admin: 06/18/17 09:57 Dose: 100 mls/hr Metronidazole (Flagyl) 500 mg in 100 mls @ 100 mls/hr IVPB Q8 [facility] PRN Reason: Protocol Last Admin: 06/18/17 05:16 Dose: 100 mls/hr Lactated Ringer's (Lactated Ringer's) 1,000 mls @ 75 mls/hr IV .[id number] [facility] Last Admin: 06/18/17 09:55 Dose: 75 mls/hr Insulin Human Lispro (Humalog Med) 0 units SC ACHS [facility] PRN Reason: Protocol Last Admin: 06/18/17 08:30 Dose: Not Given Ondansetron HCl (Zofran Inj) 4 mg IVP Q4H PRN PRN Reason: Nausea/Vomiting Pantoprazole Sodium (Protonix Inj) 40 mg IVP DAILY [facility] Last Admin: 06/18/17 09:50 Dose: 40 mg Timolol Maleate (Timoptic 0.5% Ophth Soln) 0 drop OU BID [facility] Last Admin: 06/18/17 09:50 Dose: 1 drop Ursodiol (Actigall) 300 mg PO 0800 [facility] Last Admin: 06/17/17 09:23 Dose: 300 mg - Labs Labs: 06/18/17 06:30 06/18/17 06:30 PT 13.1 SECONDS (9.4-12.5) H 06/15/17 06:15 INR 1.14 (0.93-1.08) H 06/15/17 06:15 APTT 32.9 Seconds (25.1-36.5) 06/15/17 06:15 - Constitutional Appears: No Acute Distress - Head Exam Head Exam: NORMOCEPHALIC - Eye Exam Eye Exam: Normal appearance. absent: Scleral icterus - ENT Exam ENT Exam: Mucous Membranes Moist - Neck Exam Neck Exam: Normal Inspection - Respiratory Exam Respiratory Exam: NORMAL BREATHING PATTERN. absent: Respiratory Distress - Cardiovascular Exam Cardiovascular Exam: +S1, +S2 - GI/Abdominal Exam GI & Abdominal Exam: Soft, Normal Bowel Sounds. absent: Guarding, Rebound Additional comments: abdominal surgical dressing is in place and is dry and intact, positive GAYE drain with serosanguineous, emptied this morning, currently appears empty. - Extremities Exam Extremities Exam: absent: Calf Tenderness, Pedal Edema - Neurological Exam Neurological Exam: Alert, Awake, Oriented x3 - Skin Skin Exam: Dry, Warm Assessment and Plan - Assessment and Plan (Free Text) Assessment: Assessment: S/P open cholecystectpomy w/ lysis of adhesion CBD dilatation 9.7mm s/p repeat ERCP w/spyglass/lithotripsy adn balloon dilation of ampullary Nonobstructive uropathy COPD NIDDM HTN HLD hx PE Pleural effusion pacemaker Plan: monitor and trend LFTs diet as per surgery PPI moniotr h/h and for overt gI bleeding Continue IV levaquin and flagyl On Lovenox On Actigall surgical FU Seen and discussed with Dr. Guevara. <Tania Guevara V - Last Filed: 06/18/17 23:53> Objective - Vital Signs/Intake and Output Vital Signs (last 24 hours): Temp Pulse Resp BP Pulse Ox 98.5 F 64 18 103/56 L 97 06/18/17 22:00 06/18/17 22:00 06/18/17 22:00 06/18/17 22:00 06/18/17 22:00 Intake and Output: 06/18/17 06/19/17 18:59 06:59 Intake Total 1340 Output Total 350 Balance 990 - Medications Medications: Current Medications Amlodipine Besylate (Norvasc) 10 mg PO DAILY [facility] Last Admin: 06/18/17 09:46 Dose: 10 mg Enoxaparin Sodium (Lovenox) 60 mg SC Q12H [facility] PRN Reason: Protocol Last Admin: 06/18/17 21:13 Dose: 60 mg Hydromorphone HCl (Dilaudid) 0.5 mg IVP Q4H PRN PRN Reason: Pain, severe (8-10) Last Admin: 06/18/17 21:10 Dose: 0.5 mg Levofloxacin/Dextrose (Levaquin 250mg) 250 mg in 50 mls @ 100 mls/hr IVPB DAILY [facility] PRN Reason: Protocol Last Admin: 06/18/17 09:57 Dose: 100 mls/hr Metronidazole (Flagyl) 500 mg in 100 mls @ 100 mls/hr IVPB Q8 [facility] PRN Reason: Protocol Last Admin: 06/18/17 21:09 Dose: 100 mls/hr Potassium Chloride 20 meq/ (Dextrose/Sodium Chloride) 1,010 mls @ 75 mls/hr IV .[id number] [facility] Last Admin: 06/18/17 21:25 Dose: 75 mls/hr Insulin Human Lispro (Humalog Med) 0 units SC ACHS [facility] PRN Reason: Protocol Last Admin: 06/18/17 21:26 Dose: Not Given Ondansetron HCl (Zofran Inj) 4 mg IVP Q4H PRN PRN Reason: Nausea/Vomiting Last Admin: 06/18/17 21:10 Dose: 4 mg Oxycodone/Acetaminophen (Percocet 5/325 Mg Tab) 2 tab PO Q4H PRN PRN Reason: Pain, moderate (4-7) Stop: 06/21/17 16:25 Last Admin: 06/18/17 18:09 Dose: 2 tab Pantoprazole Sodium (Protonix Inj) 40 mg IVP DAILY [facility] Last Admin: 06/18/17 09:50 Dose: 40 mg Timolol Maleate (Timoptic 0.5% Ophth Soln) 0 drop OU BID [facility] Last Admin: 06/18/17 18:01 Dose: 1 drop Ursodiol (Actigall) 300 mg PO 0800 [facility] Last Admin: 06/17/17 09:23 Dose: 300 mg - Labs Labs: 06/18/17 06:30 06/18/17 06:30 PT 13.1 SECONDS (9.4-12.5) H 06/15/17 06:15 INR 1.14 (0.93-1.08) H 06/15/17 06:15 APTT 32.9 Seconds (25.1-36.5) 06/15/17 06:15 Attending/Attestation - Attestation I have personally seen and examined this patient.: Yes I have fully participated in the care of the patient.: Yes I have reviewed all pertinent clinical information, including history, physical exam and plan: Yes Notes (Text): This is an addendum to GI progress report dictated by Jaclyn Goss APN.The patient was seen and examined earlier. Medical records, lab studies, imagings were reviewed. Last 24 hours events reviewed. Agreed with the above treatment plan as outlined in Jaclyn Goss APN's notes the with the addition of the following 06/18/17 23:53
--- NOTE | 2017-06-18 13:20 | CP.PCM.PN ---
Subjective - Date & Time of Evaluation Date of Evaluation: 06/18/17 Time of Evaluation: 13:16 - Subjective Subjective: Surgery: Dr. Duncan Pt seen and examined. Resting comfortably in bed. Pt does have abdominal pain, it does respond to pain meds. No N/V. No Flatus/BM. Objective - Vital Signs/Intake and Output Vital Signs (last 24 hours): Temp Pulse Resp BP Pulse Ox 98.0 F 46 L 18 122/65 95 06/18/17 07:30 06/18/17 07:30 06/18/17 07:30 06/18/17 09:46 06/18/17 07:30 Intake and Output: 06/18/17 06/18/17 06:59 18:59 Intake Total 800 Output Total 830 Balance -30 - Medications Medications: Current Medications Amlodipine Besylate (Norvasc) 10 mg PO DAILY [facility] Last Admin: 06/18/17 09:46 Dose: 10 mg Enoxaparin Sodium (Lovenox) 60 mg SC Q12H [facility] PRN Reason: Protocol Last Admin: 06/18/17 11:00 Dose: 60 mg Hydromorphone HCl (Dilaudid) 0.5 mg IVP Q4H PRN PRN Reason: Pain, severe (8-10) Last Admin: 06/18/17 12:36 Dose: 0.5 mg Levofloxacin/Dextrose (Levaquin 250mg) 250 mg in 50 mls @ 100 mls/hr IVPB DAILY [facility] PRN Reason: Protocol Last Admin: 06/18/17 09:57 Dose: 100 mls/hr Metronidazole (Flagyl) 500 mg in 100 mls @ 100 mls/hr IVPB Q8 [facility] PRN Reason: Protocol Last Admin: 06/18/17 05:16 Dose: 100 mls/hr Potassium Chloride 20 meq/ (Dextrose/Sodium Chloride) 1,010 mls @ 75 mls/hr IV .[id number] [facility] Insulin Human Lispro (Humalog Med) 0 units SC ACHS [facility] PRN Reason: Protocol Last Admin: 06/18/17 12:30 Dose: Not Given Ondansetron HCl (Zofran Inj) 4 mg IVP Q4H PRN PRN Reason: Nausea/Vomiting Pantoprazole Sodium (Protonix Inj) 40 mg IVP DAILY [facility] Last Admin: 06/18/17 09:50 Dose: 40 mg Timolol Maleate (Timoptic 0.5% Ophth Soln) 0 drop OU BID [facility] Last Admin: 06/18/17 09:50 Dose: 1 drop Ursodiol (Actigall) 300 mg PO 0800 [facility] Last Admin: 06/17/17 09:23 Dose: 300 mg - Labs Labs: 06/18/17 06:30 06/18/17 06:30 PT 13.1 SECONDS (9.4-12.5) H 06/15/17 06:15 INR 1.14 (0.93-1.08) H 06/15/17 06:15 APTT 32.9 Seconds (25.1-36.5) 06/15/17 06:15 - Constitutional Appears: Non-toxic, No Acute Distress - Head Exam Head Exam: ATRAUMATIC, NORMOCEPHALIC - Eye Exam Eye Exam: EOMI. absent: Scleral icterus - ENT Exam ENT Exam: Mucous Membranes Moist - Neck Exam Neck Exam: Full ROM - Respiratory Exam Respiratory Exam: NORMAL BREATHING PATTERN. absent: Accessory Muscle Use, Respiratory Distress - GI/Abdominal Exam GI & Abdominal Exam: Soft, Tenderness (freddie-incisional ). absent: Distended, Firm, Guarding, Rigid, Rebound Additional comments: dressing in place, C/D/I, elder in place - Extremities Exam Extremities Exam: absent: Calf Tenderness, Pedal Edema - Neurological Exam Neurological Exam: Alert, Awake, Oriented x3 - Psychiatric Exam Psychiatric exam: Normal Affect, Normal Mood Assessment and Plan - Assessment and Plan (Free Text) Assessment: 81F w. cholecystitis / choledocholithiasis, s/p lap converted to open cortney, POD #1 Plan: -Elder 30cc/12hr serosang, continue to monitor -D/C mcintyre -c/w abx -start CLD -continue w. pain meds -OOB to chair -PT/OT as tolerated -encourage IS use -d/w attending [facility] PGY3
[2017-06-18] MEDS: Potassium Chloride 20 MEQ in Dextrose 5%/0.45% NS 1,000 ML IV SCH ×2 (13:50→21:25)
[2017-06-18] MEDS ORDERED: Oxycodone/Acetaminophen 5/325 mg Tab PO PRN (16:24)
[2017-06-18] MEDS ORDERED: Sodium Chloride 0.9% 500 ML IV STA (18:30)
[2017-06-19] MEDS: HYDROmorphone 0.5 mg/0.5 ml ISec IVP PRN ×4 (01:10→22:46)
[2017-06-19] MEDS: Potassium Chloride 20 MEQ in Dextrose 5%/0.45% NS 1,000 ML IV SCH ×2 (02:49→17:41)
[2017-06-19] MEDS: metroNIDAZOLE IV 500 mg/100 ml 500 MG/100 ML BAG IVPB SCH ×3 (05:39→22:40)
[2017-06-19 07:34] LABS: HEMOGLOBIN 11.8 g/dL (12.0-16.0); MEAN CELL VOLUME 92.4 fl (80.0-105.0); MEAN CORPUSCULAR HEMOGLOBIN 29.9 pg (25.0-35.0); MEAN CORPUSCULAR HGB CONC 32.3 g/dl (31.0-37.0); MEAN PLATELET VOLUME 9.5 fl (7.0-11.0); RBC 3.95 10^6/uL (3.5-6.1); RED CELL DISTRIBUTION WIDTH 13.7 % (11.5-14.5); WHITE BLOOD COUNT 8.7 10^3/ul (4.5-11.0)
[2017-06-19 07:52] LABS: ALB/GLOB RATIO 0.8 (1.1-1.8); ALBUMIN 2.9 g/dL (3.0-4.8); ALT/SGPT 31 U/L (7-56); AST/SGOT 29 U/L (14-36); BLOOD UREA NITROGEN 6 mg/dL (7-21); CALCIUM 8.8 mg/dL (8.4-10.5); GFR AFRICAN-AMERICAN > 60; GFR NON-AFRICAN AMERICAN > 60
--- NOTE | 2017-06-19 08:09 | CP.PCM.PN ---
Subjective - Date & Time of Evaluation Date of Evaluation: 06/19/17 Time of Evaluation: 08:05 - Subjective Subjective: Surgery Pt s&e. NAEON. c/o abd pain. Denies F/C/N/V/D/CP/SOB. Tolerating CLD. PT ordered. Pt still has mcintyre. 30cc/hr output. Objective - Vital Signs/Intake and Output Vital Signs (last 24 hours): Temp Pulse Resp BP Pulse Ox 98.5 F 64 18 103/56 L 97 06/18/17 22:00 06/18/17 22:00 06/18/17 22:00 06/18/17 22:00 06/18/17 22:00 Intake and Output: 06/19/17 06/19/17 06:59 18:59 Intake Total 0 Output Total 400 Balance -400 - Medications Medications: Current Medications Amlodipine Besylate (Norvasc) 10 mg PO DAILY [facility] Last Admin: 06/18/17 09:46 Dose: 10 mg Enoxaparin Sodium (Lovenox) 60 mg SC Q12H [facility] PRN Reason: Protocol Last Admin: 06/18/17 21:13 Dose: 60 mg Hydromorphone HCl (Dilaudid) 0.5 mg IVP Q4H PRN PRN Reason: Pain, severe (8-10) Last Admin: 06/19/17 05:39 Dose: 0.5 mg Levofloxacin/Dextrose (Levaquin 250mg) 250 mg in 50 mls @ 100 mls/hr IVPB DAILY [facility] PRN Reason: Protocol Last Admin: 06/18/17 09:57 Dose: 100 mls/hr Metronidazole (Flagyl) 500 mg in 100 mls @ 100 mls/hr IVPB Q8 [facility] PRN Reason: Protocol Last Admin: 06/19/17 05:39 Dose: 100 mls/hr Potassium Chloride 20 meq/ (Dextrose/Sodium Chloride) 1,010 mls @ 75 mls/hr IV .[id number] [facility] Last Admin: 06/19/17 02:49 Dose: Not Given Insulin Human Lispro (Humalog Med) 0 units SC ACHS [facility] PRN Reason: Protocol Last Admin: 06/18/17 21:26 Dose: Not Given Ondansetron HCl (Zofran Inj) 4 mg IVP Q4H PRN PRN Reason: Nausea/Vomiting Last Admin: 06/19/17 05:39 Dose: 4 mg Oxycodone/Acetaminophen (Percocet 5/325 Mg Tab) 2 tab PO Q4H PRN PRN Reason: Pain, moderate (4-7) Stop: 06/21/17 16:25 Last Admin: 06/18/17 18:09 Dose: 2 tab Pantoprazole Sodium (Protonix Inj) 40 mg IVP DAILY [facility] Last Admin: 06/18/17 09:50 Dose: 40 mg Timolol Maleate (Timoptic 0.5% Ophth Soln) 0 drop OU BID [facility] Last Admin: 06/18/17 18:01 Dose: 1 drop Ursodiol (Actigall) 300 mg PO 0800 [facility] Last Admin: 06/17/17 09:23 Dose: 300 mg - Labs Labs: 06/19/17 06:30 06/19/17 06:30 PT 13.1 SECONDS (9.4-12.5) H 06/15/17 06:15 INR 1.14 (0.93-1.08) H 06/15/17 06:15 APTT 32.9 Seconds (25.1-36.5) 06/15/17 06:15 - Constitutional Appears: No Acute Distress - Head Exam Head Exam: ATRAUMATIC, NORMAL INSPECTION, NORMOCEPHALIC - Eye Exam Eye Exam: EOMI, Normal appearance, PERRL Pupil Exam: NORMAL ACCOMODATION, PERRL - ENT Exam ENT Exam: Mucous Membranes Moist, Normal Exam - Neck Exam Neck Exam: Full ROM, Normal Inspection. absent: Lymphadenopathy - Respiratory Exam Respiratory Exam: Clear to Ausculation Bilateral, NORMAL BREATHING PATTERN - Cardiovascular Exam Cardiovascular Exam: REGULAR RHYTHM, +S1, +S2. absent: Murmur - GI/Abdominal Exam GI & Abdominal Exam: Soft, Tenderness, Normal Bowel Sounds. absent: Distended, Firm, Guarding, Rigid Additional comments: Dressing in place. C/D/I. Drain in place: scant SS fluid. TTP. - Exam Additional comments: Mcintyre in place - Extremities Exam Extremities Exam: Full ROM, Normal Capillary Refill, Normal Inspection. absent : Joint Swelling, Pedal Edema - Back Exam Back Exam: NORMAL INSPECTION - Neurological Exam Neurological Exam: Alert, Awake, CN II-XII Intact, Normal Gait, Oriented x3 - Psychiatric Exam Psychiatric exam: Normal Affect, Normal Mood - Skin Skin Exam: Dry, Intact, Normal Color, Warm Assessment and Plan - Assessment and Plan (Free Text) Assessment: 81F w. cholecystitis / choledocholithiasis, s/p lap converted to open cortney, POD #2 Plan: -Elder minimal output serosang -MOnitor urine output: 30cc/hr -c/w abx -start FLD -continue w. pain meds -OOB to chair -PT/OT as tolerated -encourage IS use -DVT/GI ppx -Will d/w attending
[2017-06-19] MEDS: Insulin Lispro (humaLOG) MEDIUM Coverage SC SCH ×4 (08:53→22:41)
[2017-06-19] MEDS: Enoxaparin 60 mg Syringe SC SCH ×2 (09:51→22:41)
[2017-06-19] MEDS: levoFLOXacin 250 mg in D5W 250 MG/50 ML BAG IVPB SCH (09:51)
--- NOTE | 2017-06-20 00:21 | PN ---
DATE: SUBJECTIVE: Patient is 81 years old, seen and examined, complaining of some abdominal discomfort, did not pass flatus and has no appetite. PHYSICAL EXAMINATION: VITAL SIGNS: She is afebrile, pulse 85, respirations 20, blood pressure 137/70. LUNGS: Bilateral good airflow. No rhonchi or crackle. HEART: S1, S2 audible. ABDOMEN: Soft. Slight palpable discomfort. NEUROLOGIC: She is awake and alert, able to communicate. LABORATORY DATA: WBC is 8.7, hemoglobin 11.8, hematocrit 36.5, platelets 34. Chemistry: Sodium 139, potassium 3.8, chloride 106, CO2 of 28, BUN 6, creatinine 0.8, blood sugar of 167. Urine shows E. coli. ASSESSMENT: 1. History of choledocholithiasis status post endoscopic retrograde cholangio-pancreatography and sphincterotomy. 2. Open cholecystectomy. 3. Pulmonary embolism. 4. Hypertension. 5. History of glaucoma. PLAN: Start the patient on physical therapy. Out of bed to chair. She has been started on clear liquid diet; we will advance as she tolerates. We will monitor her blood sugar. Silvio Smith MD
--- NOTE | 2017-06-20 01:07 | PN ---
DATE: 06/19/2017 SUBJECTIVE: This patient was seen and evaluated earlier today. The patient complains of an abdominal discomfort. PHYSICAL EXAMINATION: VITAL SIGNS: Temperature 98.3, blood pressure 130/67, pulse 85, respiration is 20, and O2 saturation is 96. HEENT: Atraumatic and anicteric. NECK: Supple. HEART: S1 and S2 heard. LUNGS: Bilateral air entry present. ABDOMEN: Soft. Surgical incision noticed and tenderness present. EXTREMITIES: No cyanosis, no clubbing. LABORATORY DATA: Hemoglobin 11.8, hematocrit 36.5, WBC 8.7, platelets 234. Chemistry shows LFTs are essentially unremarkable except globulin is 3.4. IMPRESSION: An 81-year-old patient who is status post endoscopic retrograde cholangiopancreatography and electrohydraulic lithotripsy of a large common bile duct stone, subsequently underwent laparoscopic cholecystectomy, converted into open. RECOMMENDATIONS: 1. Continue the antibiotics. 2. The patient has a history of DVT and PE. The patient was on Eliquis at home. Presently on Lovenox 60 mg every 12 hourly. Continue that. 3. Followup of the LFTs and advance the diet as per Surgery. Tania Guevara MD MTDD
[2017-06-20] MEDS: metroNIDAZOLE IV 500 mg/100 ml 500 MG/100 ML BAG IVPB SCH ×3 (06:21→21:08)
[2017-06-20] MEDS: HYDROmorphone 0.5 mg/0.5 ml ISec IVP PRN ×3 (06:22→21:07)
[2017-06-20] MEDS: Potassium Chloride 20 MEQ in Dextrose 5%/0.45% NS 1,000 ML IV SCH ×2 (06:50→19:34)
--- NOTE | 2017-06-20 08:14 | CP.PCM.PN ---
Subjective - Date & Time of Evaluation Date of Evaluation: 06/20/17 Time of Evaluation: 08:10 - Subjective Subjective: Surgery: Dr. Duncan Pt seen and examined. Has complaints of abd pain. Pain responds to meds. She it tolerated CLD, but does not want to eat much more. No N/V. Objective - Vital Signs/Intake and Output Vital Signs (last 24 hours): Temp Pulse Resp BP Pulse Ox 98.3 F 81 18 149/72 97 06/20/17 06:00 06/20/17 06:00 06/20/17 06:00 06/20/17 06:00 06/20/17 06:00 Intake and Output: 06/20/17 06/20/17 06:59 18:59 Intake Total 3080 Output Total 2840 Balance 240 - Medications Medications: Current Medications Amlodipine Besylate (Norvasc) 10 mg PO DAILY [facility] Last Admin: 06/19/17 09:52 Dose: 10 mg Enoxaparin Sodium (Lovenox) 60 mg SC Q12H [facility] PRN Reason: Protocol Last Admin: 06/19/17 22:41 Dose: 60 mg Hydromorphone HCl (Dilaudid) 0.5 mg IVP Q4H PRN PRN Reason: Pain, severe (8-10) Last Admin: 06/20/17 06:22 Dose: 0.5 mg Levofloxacin/Dextrose (Levaquin 250mg) 250 mg in 50 mls @ 100 mls/hr IVPB DAILY [facility] PRN Reason: Protocol Last Admin: 06/19/17 09:51 Dose: 100 mls/hr Metronidazole (Flagyl) 500 mg in 100 mls @ 100 mls/hr IVPB Q8 [facility] PRN Reason: Protocol Last Admin: 06/20/17 06:21 Dose: 100 mls/hr Potassium Chloride 20 meq/ (Dextrose/Sodium Chloride) 1,010 mls @ 75 mls/hr IV .[id number] [facility] Last Admin: 06/20/17 06:50 Dose: 75 mls/hr Insulin Human Lispro (Humalog Med) 0 units SC ACHS [facility] PRN Reason: Protocol Last Admin: 06/19/17 22:41 Dose: Not Given Ondansetron HCl (Zofran Inj) 4 mg IVP Q4H [facility]N PRN Reason: Nausea/Vomiting Last Admin: 06/20/17 06:22 Dose: 4 mg Oxycodone/Acetaminophen (Percocet 5/325 Mg Tab) 2 tab PO Q4H PRN PRN Reason: Pain, moderate (4-7) Stop: 06/21/17 16:25 Last Admin: 06/18/17 18:09 Dose: 2 tab Pantoprazole Sodium (Protonix Inj) 40 mg IVP DAILY [facility] Last Admin: 06/19/17 09:52 Dose: 40 mg Timolol Maleate (Timoptic 0.5% Ophth Soln) 0 drop OU BID [facility] Last Admin: 06/19/17 18:40 Dose: 1 drop Ursodiol (Actigall) 300 mg PO 0800 [facility] Last Admin: 06/17/17 09:23 Dose: 300 mg - Labs Labs: 06/19/17 06:30 06/19/17 06:30 PT 13.1 SECONDS (9.4-12.5) H 06/15/17 06:15 INR 1.14 (0.93-1.08) H 06/15/17 06:15 APTT 32.9 Seconds (25.1-36.5) 06/15/17 06:15 - Constitutional Appears: Non-toxic, No Acute Distress - Head Exam Head Exam: ATRAUMATIC, NORMOCEPHALIC - Eye Exam Eye Exam: EOMI - ENT Exam ENT Exam: Mucous Membranes Moist - Respiratory Exam Respiratory Exam: NORMAL BREATHING PATTERN. absent: Accessory Muscle Use, Respiratory Distress - GI/Abdominal Exam GI & Abdominal Exam: Soft, Tenderness (freddie-incisional ). absent: Distended, Firm, Guarding, Rigid, Rebound - Extremities Exam Extremities Exam: Full ROM - Neurological Exam Neurological Exam: Alert, Awake, Oriented x3 - Psychiatric Exam Psychiatric exam: Normal Affect, Normal Mood - Skin Skin Exam: Dry, Intact, Warm Assessment and Plan - Assessment and Plan (Free Text) Assessment: 81F w. cholecystitis s/p lap converted to open cortney, POD#3 Plan: -Elder: 20cc/12hr serosang, continue to monitor -D/C mcintyre -c/w pain management -Advance diet as tolerated -OOB to chair, encourage IS use -PT/OT as tolerated -d/w attending Funmilayo PGY3
[2017-06-20] MEDS: Insulin Lispro (humaLOG) MEDIUM Coverage SC SCH ×4 (08:37→21:02)
[2017-06-20 09:15] LABS: HEMOGLOBIN 12.3 g/dL (12.0-16.0); MEAN CORPUSCULAR HEMOGLOBIN 30.6 pg (25.0-35.0); MEAN CORPUSCULAR HGB CONC 33.2 g/dl (31.0-37.0); MEAN PLATELET VOLUME 9.8 fl (7.0-11.0); RBC 4.02 10^6/uL (3.5-6.1); RED CELL DISTRIBUTION WIDTH 13.4 % (11.5-14.5); WHITE BLOOD COUNT 9.7 10^3/ul (4.5-11.0)
[2017-06-20] MEDS: levoFLOXacin 250 mg in D5W 250 MG/50 ML BAG IVPB SCH (09:27)
[2017-06-20] MEDS: Enoxaparin 60 mg Syringe SC SCH ×2 (09:28→21:07)
--- NOTE | 2017-06-20 20:05 | PN ---
DATE: SUBJECTIVE: The patient is 81 years old, seen and examined, lying in bed, complaining of nausea, epigastric discomfort. Otherwise neurologically she is awake, alert, oriented, able to communicate. PHYSICAL EXAMINATION: VITAL SIGNS: She is afebrile, pulse 81, respirations 18, blood pressure 140/72. LUNGS: Bilateral fair airflow. No rhonchi or crackles. HEART: S1, S2 audible. ABDOMEN: Soft, palpable. Discomfort, epigastric area and surgical site. EXTREMITIES: Bilateral legs, no edema. SCD in place. Able to move all extremities; however, she has generalized weakness. LABORATORY DATA: WBC is 9.7, hemoglobin 12.3, hematocrit 37, platelet of 256. Chemistry: Blood sugar is 213, urine shows E. coli. ASSESSMENT: 1. Status post cholecystectomy, status post endoscopic retrograde cholangiopancreatography, ultrasound, sphincterotomy and stent replacement. 2. History of pulmonary embolism. 3. Hypertension. 4. Hyperlipidemia. 5. Escherichia coli urinary tract infection. PLAN: She is on SCDs for DVT prophylaxis. She is currently on IV fluids. She is also on Lovenox 60 mg every 12 hours. We will talk to Dr. Guevara and see if we can start Eliquis and make disposition plan for rehab in TCU. Diet can be advanced as tolerated if okay with surgical team. Silvio Smith MD
--- NOTE | 2017-06-20 23:14 | PN ---
DATE: SUBJECTIVE: This patient was seen and evaluated earlier today. Patient was complaining of some abdominal discomfort. PHYSICAL EXAMINATION: VITAL SIGNS: Temperature 98.3, pulse 89, blood pressure 146/76. HEENT: Atraumatic and anicteric. NECK: Supple. HEART: S1 and S2 heard. LUNGS: Bilateral air entry present. ABDOMEN: Soft. Surgical incision noticed. Some tenderness in the abdomen noticed. EXTREMITIES: No cyanosis, no clubbing. LABORATORY DATA: Hemoglobin 12.3, hematocrit 37, WBC 9.7, platelets 256. IMPRESSION: This is an 81-year-old patient with: 1. Status post attempted conversion of laparoscopic cholecystectomy to open, status post endoscopic retrograde cholangiopancreatography and electrohydraulic lithotripsy of the large common bile duct stone. 2. History of pulmonary embolism. Patient was on Eliquis, now on Lovenox 60 mg every 12 hourly. RECOMMENDATIONS: 1. Patient is on antibiotics levofloxacin and Flagyl, continue that. 2. Follow up of the liver function test. 3. Continue followup of the hemoglobin and hematocrit. 4. Advance diet as per Surgery. Thank you very much for allowing us to participate in the care of the patient. Tania Guevara MD
[2017-06-21] MEDS: Potassium Chloride 20 MEQ in Dextrose 5%/0.45% NS 1,000 ML IV SCH (00:20)
[2017-06-21] MEDS: metroNIDAZOLE IV 500 mg/100 ml 500 MG/100 ML BAG IVPB SCH ×3 (06:03→21:13)
[2017-06-21 07:17] LABS: ALB/GLOB RATIO 0.9 (1.1-1.8); ALT/SGPT 22 U/L (7-56); AST/SGOT 21 U/L (14-36); BLOOD UREA NITROGEN 5 mg/dL (7-21); CALCIUM 9.6 mg/dL (8.4-10.5); GFR AFRICAN-AMERICAN > 60; GFR NON-AFRICAN AMERICAN > 60
[2017-06-21] MEDS: Insulin Lispro (humaLOG) MEDIUM Coverage SC SCH ×2 (07:54→21:13)
--- NOTE | 2017-06-21 08:20 | PN ---
DATE: SUBJECTIVE: The patient is 81 years old, seen and examined, lying in bed. Complaining of feeling nauseous, status post cholecystectomy done yesterday. Started on clear liquid . PHYSICAL EXAMINATION: VITAL SIGNS: Temperature 99, pulse 60, respirations 18, and blood pressure 110/64. LUNGS: Bilateral fair airflow. Poor respiratory effort. ABDOMEN: Does have abdominal pain. Abdomen is soft. Positive palpable discomfort at the surgical site. NEUROLOGIC: She is awake, alert, oriented, and communicative. LABORATORY DATA: WBC is 17.1, hemoglobin 12.3, hematocrit 37.5, and platelets of 268. Chemistry: Sodium 140, potassium 4.1, chloride 105, CO2 of 21, BUN 7, creatinine 0.7, and blood sugar 171. ASSESSMENT: 1. Status post cholecystectomy. 2. Status post endoscopic ultrasound and endoscopic retrograde cholangiopancreatography. 3. Status post stent replacement. 4. History of pulmonary embolism. 5. Hypertension. 6. [id number]-iaibbhzys diabetes. PLAN: Currently, the patient is on IV fluids. She is still on Actigall as needed. She is on metronidazole and Levaquin. Continue her on Lovenox. Continue on amlodipine. We will discuss with the Surgical team when we can start her on Eliquis. Silvio Smith MD
--- NOTE | 2017-06-21 08:22 | CP.PCM.PN ---
Subjective - Date & Time of Evaluation Date of Evaluation: 06/21/17 Time of Evaluation: 08:17 - Subjective Subjective: Surgery: Dr. Duncan Patient reports pain this am controlled with medication. She denies n/v/f/c. Patient was OOB ambulating yesterday. No documented bowel movement or flatus. Patient is unsure about bowel function. Objective - Vital Signs/Intake and Output Vital Signs (last 24 hours): Temp Pulse Resp BP Pulse Ox 98.3 F 89 18 146/76 97 06/20/17 16:25 06/20/17 16:25 06/20/17 16:25 06/20/17 16:25 06/20/17 16:25 Intake and Output: 06/21/17 06/21/17 06:59 18:59 Intake Total 360 Output Total 550 Balance -190 - Medications Medications: Current Medications Amlodipine Besylate (Norvasc) 10 mg PO DAILY [facility] Last Admin: 06/20/17 09:26 Dose: 10 mg Enoxaparin Sodium (Lovenox) 60 mg SC Q12H [facility] PRN Reason: Protocol Last Admin: 06/20/17 21:07 Dose: 60 mg Hydromorphone HCl (Dilaudid) 0.5 mg IVP Q4H PRN PRN Reason: Pain, severe (8-10) Last Admin: 06/20/17 21:07 Dose: 0.5 mg Levofloxacin/Dextrose (Levaquin 250mg) 250 mg in 50 mls @ 100 mls/hr IVPB DAILY [facility] PRN Reason: Protocol Last Admin: 06/20/17 09:27 Dose: 100 mls/hr Metronidazole (Flagyl) 500 mg in 100 mls @ 100 mls/hr IVPB Q8 [facility] PRN Reason: Protocol Last Admin: 06/21/17 06:03 Dose: 100 mls/hr Potassium Chloride 20 meq/ (Dextrose/Sodium Chloride) 1,010 mls @ 75 mls/hr IV .[id number] [facility] Last Admin: 06/21/17 00:20 Dose: 75 mls/hr Insulin Human Lispro (Humalog Med) 0 units SC ACHS [facility] PRN Reason: Protocol Last Admin: 06/21/17 07:54 Dose: Not Given Ondansetron HCl (Zofran Inj) 4 mg IVP Q4H PRN PRN Reason: Nausea/Vomiting Last Admin: 06/20/17 21:08 Dose: 4 mg Oxycodone/Acetaminophen (Percocet 5/325 Mg Tab) 2 tab PO Q4H PRN PRN Reason: Pain, moderate (4-7) Stop: 06/21/17 16:25 Last Admin: 06/18/17 18:09 Dose: 2 tab Pantoprazole Sodium (Protonix Inj) 40 mg IVP DAILY [facility] Last Admin: 06/20/17 09:27 Dose: 40 mg Timolol Maleate (Timoptic 0.5% Ophth Soln) 0 drop OU BID [facility] Last Admin: 06/20/17 17:25 Dose: 1 drop Ursodiol (Actigall) 300 mg PO 0800 [facility] Last Admin: 06/17/17 09:23 Dose: 300 mg - Labs Labs: 06/20/17 08:50 06/21/17 06:20 PT 13.1 SECONDS (9.4-12.5) H 06/15/17 06:15 INR 1.14 (0.93-1.08) H 06/15/17 06:15 APTT 32.9 Seconds (25.1-36.5) 06/15/17 06:15 - Constitutional Appears: Non-toxic, No Acute Distress - Head Exam Head Exam: ATRAUMATIC, NORMOCEPHALIC - Eye Exam Eye Exam: EOMI, Normal appearance - ENT Exam ENT Exam: Mucous Membranes Moist - Respiratory Exam Respiratory Exam: NORMAL BREATHING PATTERN. absent: Respiratory Distress - Cardiovascular Exam Cardiovascular Exam: REGULAR RHYTHM. absent: Tachycardia - GI/Abdominal Exam GI & Abdominal Exam: Soft. absent: Distended, Guarding, Tenderness, Rebound Additional comments: incision CDI with staple closure, betadine around incision. packing removed 1cm Assessment and Plan - Assessment and Plan (Free Text) Assessment: 81 y/o f s/p ex lap w/ cholecystectomy POD4 Plan: -monitor for bowel function -OOB -IS use -cont FLD -can advance diet when bowel function returns -monitor joe output -will consider removing joe today -further recs per Dr. Perla Paiz PGY3
--- NOTE | 2017-06-21 09:13 | CP.PCM.PN ---
<Arnold Faye - Last Filed: 06/21/17 10:16> Subjective - Date & Time of Evaluation Date of Evaluation: 06/21/17 Time of Evaluation: 09:11 - Subjective Subjective: GI Progress Note for Dr. Guevara This 81F was seen and examined this AM at bedside no acute events overnight. Pt complains this AM of incision pain, and nausea. She denies BM or flatus. Vitals and labs reviewed. Objective - Vital Signs/Intake and Output Vital Signs (last 24 hours): Temp Pulse Resp BP Pulse Ox 98.3 F 83 20 145/72 95 06/21/17 07:30 06/21/17 07:30 06/21/17 07:30 06/21/17 07:30 06/21/17 07:30 Intake and Output: 06/21/17 06/21/17 06:59 18:59 Intake Total 360 Output Total 550 Balance -190 - Medications Medications: Current Medications Amlodipine Besylate (Norvasc) 10 mg PO DAILY [facility] Last Admin: 06/20/17 09:26 Dose: 10 mg Enoxaparin Sodium (Lovenox) 60 mg SC Q12H [facility] PRN Reason: Protocol Last Admin: 06/20/17 21:07 Dose: 60 mg Hydromorphone HCl (Dilaudid) 0.5 mg IVP Q4H PRN PRN Reason: Pain, severe (8-10) Last Admin: 06/20/17 21:07 Dose: 0.5 mg Levofloxacin/Dextrose (Levaquin 250mg) 250 mg in 50 mls @ 100 mls/hr IVPB DAILY [facility] PRN Reason: Protocol Last Admin: 06/20/17 09:27 Dose: 100 mls/hr Metronidazole (Flagyl) 500 mg in 100 mls @ 100 mls/hr IVPB Q8 [facility] PRN Reason: Protocol Last Admin: 06/21/17 06:03 Dose: 100 mls/hr Potassium Chloride 20 meq/ (Dextrose/Sodium Chloride) 1,010 mls @ 75 mls/hr IV .[id number] [facility] Last Admin: 06/21/17 00:20 Dose: 75 mls/hr Insulin Human Lispro (Humalog Med) 0 units SC ACHS [facility] PRN Reason: Protocol Last Admin: 06/21/17 07:54 Dose: Not Given Ondansetron HCl (Zofran Inj) 4 mg IVP Q4H PRN PRN Reason: Nausea/Vomiting Last Admin: 06/20/17 21:08 Dose: 4 mg Oxycodone/Acetaminophen (Percocet 5/325 Mg Tab) 2 tab PO Q4H PRN PRN Reason: Pain, moderate (4-7) Stop: 06/21/17 16:25 Last Admin: 06/18/17 18:09 Dose: 2 tab Pantoprazole Sodium (Protonix Inj) 40 mg IVP DAILY [facility] Last Admin: 06/20/17 09:27 Dose: 40 mg Timolol Maleate (Timoptic 0.5% Ophth Soln) 0 drop OU BID [facility] Last Admin: 06/20/17 17:25 Dose: 1 drop Ursodiol (Actigall) 300 mg PO 0800 [facility] Last Admin: 06/17/17 09:23 Dose: 300 mg - Labs Labs: 06/20/17 08:50 06/21/17 06:20 PT 13.1 SECONDS (9.4-12.5) H 06/15/17 06:15 INR 1.14 (0.93-1.08) H 06/15/17 06:15 APTT 32.9 Seconds (25.1-36.5) 06/15/17 06:15 - Constitutional Appears: Non-toxic - Head Exam Head Exam: ATRAUMATIC - Eye Exam Eye Exam: EOMI - ENT Exam ENT Exam: Mucous Membranes Moist - Respiratory Exam Respiratory Exam: NORMAL BREATHING PATTERN - Cardiovascular Exam Cardiovascular Exam: +S1, +S2 - GI/Abdominal Exam GI & Abdominal Exam: Soft - Neurological Exam Neurological Exam: Alert, Awake - Psychiatric Exam Psychiatric exam: Normal Affect, Normal Mood - Skin Skin Exam: Dry, Intact Assessment and Plan - Assessment and Plan (Free Text) Assessment: 81 y/o f s/p ex lap w/ cholecystectomy POD4, S/P ERCP with spy glass electrolithotryipsy of CBD stone. Plan: -monitor for bowel function -IS use -Diet per surgery team -Continue DVT ppx due to history of PE D/W Dr. Paola Faye PGY2 <Tania Guevara V - Last Filed: 06/21/17 21:58> Objective - Vital Signs/Intake and Output Vital Signs (last 24 hours): Temp Pulse Resp BP Pulse Ox 98.3 F 80 20 139/72 98 06/21/17 07:30 06/21/17 14:00 06/21/17 14:00 06/21/17 14:00 06/21/17 14:00 Intake and Output: 06/21/17 06/22/17 18:59 06:59 Intake Total 360 0 Output Total 1 Balance 360 -1 - Medications Medications: Current Medications Amlodipine Besylate (Norvasc) 10 mg PO DAILY [facility] Last Admin: 06/21/17 09:35 Dose: 10 mg Apixaban (Eliquis) 2.5 mg PO Q12 [facility] PRN Reason: Protocol Last Admin: 06/21/17 21:13 Dose: 2.5 mg Docusate Sodium (Colace) 100 mg PO DAILY [facility] Hydromorphone HCl (Dilaudid) 0.5 mg IVP Q4H PRN PRN Reason: Pain, severe (8-10) Last Admin: 06/21/17 17:29 Dose: 0.5 mg Levofloxacin/Dextrose (Levaquin 250mg) 250 mg in 50 mls @ 100 mls/hr IVPB DAILY [facility] PRN Reason: Protocol Last Admin: 06/21/17 09:36 Dose: 100 mls/hr Metronidazole (Flagyl) 500 mg in 100 mls @ 100 mls/hr IVPB Q8 [facility] PRN Reason: Protocol Last Admin: 06/21/17 21:13 Dose: 100 mls/hr Potassium Chloride 20 meq/ (Dextrose/Sodium Chloride) 1,010 mls @ 75 mls/hr IV .[id number] [facility] Last Admin: 06/21/17 00:20 Dose: 75 mls/hr Insulin Human Lispro (Humalog Med) 0 units SC ACHS [facility] PRN Reason: Protocol Last Admin: 06/21/17 21:13 Dose: Not Given Metoclopramide HCl (Reglan) 10 mg IVP TID [facility] Last Admin: 06/21/17 17:29 Dose: 10 mg Ondansetron HCl (Zofran Inj) 4 mg IVP Q4H PRN PRN Reason: Nausea/Vomiting Last Admin: 06/21/17 09:34 Dose: 4 mg Pantoprazole Sodium (Protonix Inj) 40 mg IVP DAILY [facility] Last Admin: 06/21/17 10:42 Dose: 40 mg Timolol Maleate (Timoptic 0.5% Ophth Soln) 0 drop OU BID [facility] Last Admin: 06/21/17 18:06 Dose: 1 drop Ursodiol (Actigall) 300 mg PO 0800 [facility] Last Admin: 06/17/17 09:23 Dose: 300 mg - Labs Labs: 06/20/17 08:50 06/21/17 06:20 PT 13.1 SECONDS (9.4-12.5) H 06/15/17 06:15 INR 1.14 (0.93-1.08) H 06/15/17 06:15 APTT 32.9 Seconds (25.1-36.5) 06/15/17 06:15 Attending/Attestation - Attestation I have personally seen and examined this patient.: Yes I have fully participated in the care of the patient.: Yes I have reviewed all pertinent clinical information, including history, physical exam and plan: Yes Notes (Text): This is an addendum to GI progress report dictated by the resident Patient still complained of abdominal discomfort. Mild tenderness present on examination. The patient was seen and examined earlier. Medical records, lab studies, imagings were reviewed. Last 24 hours events reviewed. Agreed with the above treatment plan as outlined in [employer] 's notes the with the addition of the following Follow-up LFTs Continue antibiotics History of DVT PE on Lovenox continue 06/21/17 21:54
[2017-06-21] MEDS: Enoxaparin 60 mg Syringe SC SCH (09:35)
[2017-06-21] MEDS: levoFLOXacin 250 mg in D5W 250 MG/50 ML BAG IVPB SCH (09:36)
[2017-06-21] MEDS: HYDROmorphone 0.5 mg/0.5 ml ISec IVP PRN ×2 (10:42→17:29)
[2017-06-21] MEDS ORDERED: Alum-Mag Hydrox-Simethicone Susp (30 mL) PO ONE ×2 (10:44→12:29)
[2017-06-21] MEDS ORDERED: Oxycodone/Acetaminophen 5/325 mg Tab PO ONE (13:30)
--- NOTE | 2017-06-21 22:00 | CARD ---
APPROVED REPORT EKG Measurement Heart [id number] <Conclusion> Sinus rhythm with marked sinus arrhythmia with junctional escape complexes Otherwise normal ECG
[2017-06-22] MEDS: Potassium Chloride 20 MEQ in Dextrose 5%/0.45% NS 1,000 ML IV SCH ×2 (04:43→05:09)
--- NOTE | 2017-06-22 05:06 | PN ---
DATE: SUBJECTIVE: The patient is 81 years old seen and examined, complains of feeling nauseous, sitting in chair, does not have good appetite. PHYSICAL EXAMINATION: VITAL SIGNS: She is afebrile, pulse 83, respirations 20, blood pressure 145/72. LUNGS: Bilateral good airflow. No rhonchi or crackle. HEART: S1, S2 audible. ABDOMEN: Soft, slight epigastric discomfort. NEUROLOGIC: She is awake, alert, oriented. Able to communicate. LABORATORY DATA: WBC is 9.7, hemoglobin 12, hematocrit 37, platelet 256. Chemistry: Sodium 138, potassium 4, chloride 103, CO2 of 29, BUN 5, creatinine 0.7, blood sugar of 88. ASSESSMENT: 1. Status post endoscopic ultrasound and endoscopic retrograde cholangiopancreatography leading to sphincterotomy. 2. Status post cholecystectomy. 3. History of pulmonary embolism. 4. Hypertension. 5. Hyperlipidemia. 6. Zav-hiyttnz-krvqttzke diabetes. 7. Chronic atrial fibrillation. PLAN: I will give her metoclopramide because apparently Zofran is not helping for nausea, could be a part of gastroparesis. We will see her response and discontinue Zofran, continue on IV fluids for now, continue on a liquid diet. She is on metronidazole and Levaquin, we will continue that. We will discontinue Lovenox, start her on Eliquis 2.5 daily. Silvio Smith MD
[2017-06-22] MEDS: metroNIDAZOLE IV 500 mg/100 ml 500 MG/100 ML BAG IVPB SCH (05:09)
[2017-06-22 08:15] VITALS: RESP 18
[2017-06-22] MEDS: Insulin Lispro (humaLOG) MEDIUM Coverage SC SCH ×4 (08:15→22:48)
--- NOTE | 2017-06-22 09:07 | CP.PCM.PN ---
Subjective - Date & Time of Evaluation Date of Evaluation: 06/22/17 Time of Evaluation: 08:28 - Subjective Subjective: Surgery Progress Note: Patient seen and examined at bedside. Pt had large bowel movement overnight. Denies fever, chills, nausea, vomiting. Objective - Vital Signs/Intake and Output Vital Signs (last 24 hours): Temp Pulse Resp BP Pulse Ox 98.3 F 84 18 142/70 98 06/22/17 07:30 06/22/17 07:30 06/22/17 07:30 06/22/17 07:30 06/22/17 07:30 Intake and Output: 06/22/17 06/22/17 06:59 18:59 Intake Total 0 Output Total 1 Balance -1 - Medications Medications: Current Medications Amlodipine Besylate (Norvasc) 10 mg PO DAILY [facility] Last Admin: 06/21/17 09:35 Dose: 10 mg Apixaban (Eliquis) 2.5 mg PO Q12 [facility] PRN Reason: Protocol Last Admin: 06/21/17 21:13 Dose: 2.5 mg Docusate Sodium (Colace) 100 mg PO DAILY [facility] Hydromorphone HCl (Dilaudid) 0.5 mg IVP Q4H PRN PRN Reason: Pain, severe (8-10) Last Admin: 06/21/17 17:29 Dose: 0.5 mg Levofloxacin/Dextrose (Levaquin 250mg) 250 mg in 50 mls @ 100 mls/hr IVPB DAILY [facility] PRN Reason: Protocol Last Admin: 06/21/17 09:36 Dose: 100 mls/hr Metronidazole (Flagyl) 500 mg in 100 mls @ 100 mls/hr IVPB Q8 [facility] PRN Reason: Protocol Last Admin: 06/22/17 05:09 Dose: 100 mls/hr Potassium Chloride 20 meq/ (Dextrose/Sodium Chloride) 1,010 mls @ 75 mls/hr IV .[id number] [facility] Last Admin: 06/22/17 05:09 Dose: 75 mls/hr Insulin Human Lispro (Humalog Med) 0 units SC ACHS [facility] PRN Reason: Protocol Last Admin: 06/21/17 21:13 Dose: Not Given Metoclopramide HCl (Reglan) 10 mg IVP TID [facility] Last Admin: 06/21/17 17:29 Dose: 10 mg Ondansetron HCl (Zofran Inj) 4 mg IVP Q4H PRN PRN Reason: Nausea/Vomiting Last Admin: 06/21/17 09:34 Dose: 4 mg Pantoprazole Sodium (Protonix Inj) 40 mg IVP DAILY [facility] Last Admin: 06/21/17 10:42 Dose: 40 mg Timolol Maleate (Timoptic 0.5% Ophth Soln) 0 drop OU BID [facility] Last Admin: 06/21/17 18:06 Dose: 1 drop Ursodiol (Actigall) 300 mg PO 0800 [facility] Last Admin: 06/17/17 09:23 Dose: 300 mg - Labs Labs: 06/20/17 08:50 06/21/17 06:20 PT 13.1 SECONDS (9.4-12.5) H 06/15/17 06:15 INR 1.14 (0.93-1.08) H 06/15/17 06:15 APTT 32.9 Seconds (25.1-36.5) 06/15/17 06:15 - Constitutional Appears: Non-toxic, No Acute Distress - Head Exam Head Exam: ATRAUMATIC, NORMOCEPHALIC - Eye Exam Eye Exam: EOMI, PERRL. absent: Conjunctival injection, Scleral icterus Pupil Exam: PERRL - ENT Exam ENT Exam: Mucous Membranes Moist - Neck Exam Neck Exam: Full ROM - Respiratory Exam Respiratory Exam: Clear to Ausculation Bilateral, NORMAL BREATHING PATTERN. absent: Rales, Rhonchi, Wheezes, Stridor - Cardiovascular Exam Cardiovascular Exam: RRR, +S1, +S2. absent: Murmur - GI/Abdominal Exam GI & Abdominal Exam: Soft, Normal Bowel Sounds Additional comments: incision CDI with staple closure, betadine around incision. - Extremities Exam Extremities Exam: Normal Inspection. absent: Calf Tenderness, Pedal Edema - Neurological Exam Neurological Exam: Alert, Awake, Oriented x3 - Psychiatric Exam Psychiatric exam: Normal Affect, Normal Mood - Skin Skin Exam: Dry, Normal Color, Warm Assessment and Plan - Assessment and Plan (Free Text) Assessment: 81 y/o f s/p ex lap w/ cholecystectomy POD5: -Soft diet. will decrease IVF as pt tolerates diet. -OOB -IS use -monitor joe output -will consider removing joe today -will discuss with Dr Andujar.
[2017-06-22] MEDS: levoFLOXacin 250 mg in D5W 250 MG/50 ML BAG IVPB SCH (10:15)
[2017-06-22] MEDS: HYDROmorphone 0.5 mg/0.5 ml ISec IVP PRN ×2 (10:27→22:58)
--- NOTE | 2017-06-22 11:17 | CP.PCM.PN ---
<Paola,Kovil V - Last Filed: 06/22/17 23:32> Objective - Vital Signs/Intake and Output Vital Signs (last 24 hours): Temp Pulse Resp BP Pulse Ox 97.4 F L 64 18 128/66 99 06/22/17 14:00 06/22/17 14:00 06/22/17 14:00 06/22/17 14:00 06/22/17 14:00 Intake and Output: 06/22/17 06/23/17 18:59 06:59 Intake Total 840 0 Output Total 0 300 Balance 840 -300 - Medications Medications: Current Medications Amlodipine Besylate (Norvasc) 10 mg PO DAILY [facility] Last Admin: 06/22/17 10:18 Dose: 10 mg Apixaban (Eliquis) 2.5 mg PO Q12 [facility] PRN Reason: Protocol Last Admin: 06/22/17 22:53 Dose: 2.5 mg Docusate Sodium (Colace) 100 mg PO DAILY [facility] Last Admin: 06/22/17 10:17 Dose: 100 mg Hydromorphone HCl (Dilaudid) 0.5 mg IVP Q4H PRN PRN Reason: Pain, severe (8-10) Last Admin: 06/22/17 22:58 Dose: 0.5 mg Levofloxacin/Dextrose (Levaquin 250mg) 250 mg in 50 mls @ 100 mls/hr IVPB DAILY [facility] PRN Reason: Protocol Last Admin: 06/22/17 10:15 Dose: 100 mls/hr Insulin Human Lispro (Humalog Med) 0 units SC ACHS [facility] PRN Reason: Protocol Last Admin: 06/22/17 22:48 Dose: Not Given Metoclopramide HCl (Reglan) 10 mg IVP TID [facility] Last Admin: 06/22/17 17:32 Dose: 10 mg Ondansetron HCl (Zofran Inj) 4 mg IVP Q4H PRN PRN Reason: Nausea/Vomiting Last Admin: 06/21/17 09:34 Dose: 4 mg Pantoprazole Sodium (Protonix Inj) 40 mg IVP DAILY [facility] Last Admin: 06/22/17 10:15 Dose: 40 mg Timolol Maleate (Timoptic 0.5% Ophth Soln) 0 drop OU BID [facility] Last Admin: 06/22/17 17:32 Dose: 1 drop Ursodiol (Actigall) 300 mg PO 0800 [facility] Last Admin: 06/17/17 09:23 Dose: 300 mg - Labs Labs: 06/20/17 08:50 06/21/17 06:20 PT 13.1 SECONDS (9.4-12.5) H 06/15/17 06:15 INR 1.14 (0.93-1.08) H 06/15/17 06:15 APTT 32.9 Seconds (25.1-36.5) 06/15/17 06:15 Attending/Attestation - Attestation I have personally seen and examined this patient.: Yes I have fully participated in the care of the patient.: Yes I have reviewed all pertinent clinical information, including history, physical exam and plan: Yes Notes (Text): This is an addendum to GI progress report dictated by Jaclyn Goss APN.The patient was seen and examined earlier. Medical records, lab studies, imagings were reviewed. Last 24 hours events reviewed. Agreed with the above treatment plan as outlined in Jaclyn Goss APN's notes the with the addition of the following 06/22/17 23:32 <Jaclyn Goss J - Last Filed: 06/23/17 12:43> Subjective - Date & Time of Evaluation Date of Evaluation: 06/22/17 Time of Evaluation: 09:50 - Subjective Subjective: Seen and examined at the bedside earlier this morning, patient reported having a bowel movement which was loose, no reports of bleeding. Her abdominal pain is getting better. No nausea or vomiting. Patient's diet has been advanced to soft diet for lunch. No new complaints. Objective - Vital Signs/Intake and Output Vital Signs (last 24 hours): Temp Pulse Resp BP Pulse Ox 98.3 F 84 18 143/70 98 06/22/17 07:30 06/22/17 07:30 06/22/17 07:30 06/22/17 10:18 06/22/17 07:30 Intake and Output: 06/22/17 06/22/17 06:59 18:59 Intake Total 0 Output Total 1 Balance -1 - Medications Medications: Current Medications Amlodipine Besylate (Norvasc) 10 mg PO DAILY [facility] Last Admin: 06/22/17 10:18 Dose: 10 mg Apixaban (Eliquis) 2.5 mg PO Q12 [facility] PRN Reason: Protocol Last Admin: 06/22/17 10:17 Dose: 2.5 mg Docusate Sodium (Colace) 100 mg PO DAILY [facility] Last Admin: 06/22/17 10:17 Dose: 100 mg Hydromorphone HCl (Dilaudid) 0.5 mg IVP Q4H PRN PRN Reason: Pain, severe (8-10) Last Admin: 06/22/17 10:27 Dose: 0.5 mg Levofloxacin/Dextrose (Levaquin 250mg) 250 mg in 50 mls @ 100 mls/hr IVPB DAILY [facility] PRN Reason: Protocol Last Admin: 06/22/17 10:15 Dose: 100 mls/hr Insulin Human Lispro (Humalog Med) 0 units SC ACHS [facility] PRN Reason: Protocol Last Admin: 06/22/17 08:15 Dose: 1 units Metoclopramide HCl (Reglan) 10 mg IVP TID [facility] Last Admin: 06/22/17 10:18 Dose: 10 mg Ondansetron HCl (Zofran Inj) 4 mg IVP Q4H PRN PRN Reason: Nausea/Vomiting Last Admin: 06/21/17 09:34 Dose: 4 mg Pantoprazole Sodium (Protonix Inj) 40 mg IVP DAILY [facility] Last Admin: 06/22/17 10:15 Dose: 40 mg Timolol Maleate (Timoptic 0.5% Ophth Soln) 0 drop OU BID [facility] Last Admin: 06/22/17 10:19 Dose: 1 drop Ursodiol (Actigall) 300 mg PO 0800 [facility] Last Admin: 06/17/17 09:23 Dose: 300 mg - Labs Labs: 06/20/17 08:50 06/21/17 06:20 PT 13.1 SECONDS (9.4-12.5) H 06/15/17 06:15 INR 1.14 (0.93-1.08) H 06/15/17 06:15 APTT 32.9 Seconds (25.1-36.5) 06/15/17 06:15 - Constitutional Appears: No Acute Distress - Head Exam Head Exam: NORMOCEPHALIC - Eye Exam Eye Exam: Normal appearance. absent: Scleral icterus - ENT Exam ENT Exam: Mucous Membranes Moist - Neck Exam Neck Exam: Normal Inspection - Respiratory Exam Respiratory Exam: NORMAL BREATHING PATTERN. absent: Respiratory Distress - Cardiovascular Exam Cardiovascular Exam: +S1, +S2 - GI/Abdominal Exam GI & Abdominal Exam: Soft, Tenderness (mild tenderness), Normal Bowel Sounds. absent: Guarding, Organomegaly, Rebound Additional comments: positive abdominal binder, positive GAYE drain that is empty, abdominal dressing dry and intact - Extremities Exam Extremities Exam: absent: Calf Tenderness, Pedal Edema - Neurological Exam Neurological Exam: Alert, Awake, Oriented x3 Assessment and Plan - Assessment and Plan (Free Text) Assessment: Assessment: S/P open cholecystectpomy w/ lysis of adhesion CBD dilatation 9.7mm s/p repeat ERCP w/spyglass/lithotripsy adn balloon dilation of ampullary Nonobstructive uropathy COPD NIDDM HTN HLD hx PE Pleural effusion Pacemaker Plan: monitor and trend LFTs diet to be advanced to soft diet PPI monitor h/h and for overt gI bleeding ON IV levaquin On Lovenox off Actigall surgical FU Seen and discussed with Dr. Guevara.
[2017-06-23] MEDS ORDERED: Oxycodone/Acetaminophen 5/325 mg Tab PO PRN ×4 (06:47→06:55)
[2017-06-23 07:47] VITALS: PULSE 90; TEMP 98.7; O2SAT 95
[2017-06-23] MEDS: levoFLOXacin 250 mg in D5W 250 MG/50 ML BAG IVPB SCH (09:20)
[2017-06-23] MEDS: Insulin Lispro (humaLOG) MEDIUM Coverage SC SCH ×3 (09:21→18:41)
[2017-06-23 09:36] VITALS: BP 127/70
--- NOTE | 2017-06-23 09:45 | RAD ---
PROCEDURE: CHEST RADIOGRAPH, 1 VIEW HISTORY: post op assessment of abdomen COMPARISON: 06/17/2017 FINDINGS: LUNGS: Clear. PLEURA: No pneumothorax or pleural fluid seen. CARDIOVASCULAR: Normal. OSSEOUS STRUCTURES: No significant abnormalities. VISUALIZED UPPER ABDOMEN: Normal. OTHER FINDINGS: Dual lead pacemaker IMPRESSION: No active disease.
--- NOTE | 2017-06-23 09:46 | RAD ---
HISTORY: post op assessment of abdomen COMPARISON: No prior. FINDINGS: BOWEL: Normal. No obstruction. No free air. BONES: Normal. OTHER FINDINGS: Surgical clips IMPRESSION: No active disease.
--- NOTE | 2017-06-23 12:43 | CP.PCM.PN ---
<Jaclyn Goss - Last Filed: 06/23/17 12:42> Subjective - Date & Time of Evaluation Date of Evaluation: 06/23/17 Time of Evaluation: 10:10 - Subjective Subjective: Seen and examined at the bedside earlier today, chart review. Patient is out of bed to chair denies nausea, abdominal pain continues to improve. Denies any bowel movement today. No reports of bleeding. The patient tolerated breakfast this morning. Abdominal x-ray was done this morning and was negative study. Objective - Vital Signs/Intake and Output Vital Signs (last 24 hours): Temp Pulse Resp BP Pulse Ox 98.7 F 90 18 127/70 95 06/23/17 07:30 06/23/17 07:30 06/23/17 07:30 06/23/17 09:19 06/23/17 07:30 Intake and Output: 06/23/17 06/23/17 06:59 18:59 Intake Total 180 Output Total 300 Balance -120 - Medications Medications: Current Medications Amlodipine Besylate (Norvasc) 10 mg PO DAILY [facility] Last Admin: 06/23/17 09:19 Dose: 10 mg Apixaban (Eliquis) 2.5 mg PO Q12 [facility] PRN Reason: Protocol Last Admin: 06/23/17 09:20 Dose: 2.5 mg Docusate Sodium (Colace) 100 mg PO DAILY [facility] Last Admin: 06/23/17 09:19 Dose: 100 mg Levofloxacin/Dextrose (Levaquin 250mg) 250 mg in 50 mls @ 100 mls/hr IVPB DAILY [facility] PRN Reason: Protocol Last Admin: 06/23/17 09:20 Dose: 100 mls/hr Insulin Human Lispro (Humalog Med) 0 units SC ACHS [facility] PRN Reason: Protocol Last Admin: 06/23/17 12:07 Dose: 1 units Ondansetron HCl (Zofran Inj) 4 mg IVP Q4H PRN PRN Reason: Nausea/Vomiting Last Admin: 06/21/17 09:34 Dose: 4 mg Oxycodone/Acetaminophen (Percocet 5/325 Mg Tab) 1 tab PO Q4H PRN PRN Reason: Pain, moderate (4-7) Stop: 06/26/17 06:48 Oxycodone/Acetaminophen (Percocet 5/325 Mg Tab) 2 tab PO Q4H PRN PRN Reason: Pain, severe (8-10) Stop: 06/26/17 06:55 Pantoprazole Sodium (Protonix Ec Tab) 40 mg PO ACB [facility] Timolol Maleate (Timoptic 0.5% Ophth Soln) 0 drop OU BID [facility] Last Admin: 06/23/17 09:22 Dose: 1 drop Ursodiol (Actigall) 300 mg PO 0800 [facility] Last Admin: 06/17/17 09:23 Dose: 300 mg - Labs Labs: 06/20/17 08:50 06/21/17 06:20 PT 13.1 SECONDS (9.4-12.5) H 06/15/17 06:15 INR 1.14 (0.93-1.08) H 06/15/17 06:15 APTT 32.9 Seconds (25.1-36.5) 06/15/17 06:15 - Constitutional Appears: No Acute Distress - Head Exam Head Exam: NORMOCEPHALIC - Eye Exam Eye Exam: Normal appearance. absent: Scleral icterus - ENT Exam ENT Exam: Mucous Membranes Moist - Neck Exam Neck Exam: Normal Inspection - Respiratory Exam Respiratory Exam: NORMAL BREATHING PATTERN. absent: Respiratory Distress - Cardiovascular Exam Cardiovascular Exam: +S1, +S2 - GI/Abdominal Exam GI & Abdominal Exam: Soft, Normal Bowel Sounds. absent: Guarding, Tenderness, Organomegaly, Rebound - Extremities Exam Extremities Exam: absent: Calf Tenderness, Pedal Edema - Neurological Exam Neurological Exam: Alert, Awake, Oriented x3 Assessment and Plan - Assessment and Plan (Free Text) Assessment: Assessment: S/P open cholecystectpomy w/ lysis of adhesion CBD dilatation 9.7mm s/p repeat ERCP w/spyglass/lithotripsy adn balloon dilation of ampullary Nonobstructive uropathy COPD NIDDM HTN HLD hx PE Pleural effusion Pacemaker Plan: monitor and trend LFTs on soft diet PPI monitor h/h and for overt gI bleeding ON IV levaquin On Lovenox surgical FU Seen and discussed with Dr. Guevara. <Tania Guevara V - Last Filed: 06/23/17 23:21> Objective - Vital Signs/Intake and Output Vital Signs (last 24 hours): Temp Pulse Resp BP Pulse Ox 98.7 F 90 18 127/70 95 06/23/17 07:30 06/23/17 07:30 06/23/17 07:30 06/23/17 09:19 06/23/17 07:30 Intake and Output: 06/23/17 06/24/17 18:59 06:59 Intake Total 480 660 Output Total 550 Balance 480 110 - Medications Medications: Current Medications Amlodipine Besylate (Norvasc) 10 mg PO DAILY [facility] Last Admin: 06/23/17 09:19 Dose: 10 mg Apixaban (Eliquis) 2.5 mg PO Q12 [facility] PRN Reason: Protocol Last Admin: 06/23/17 09:20 Dose: 2.5 mg Docusate Sodium (Colace) 100 mg PO DAILY [facility] Last Admin: 06/23/17 09:19 Dose: 100 mg Levofloxacin/Dextrose (Levaquin 250mg) 250 mg in 50 mls @ 100 mls/hr IVPB DAILY [facility] PRN Reason: Protocol Last Admin: 06/23/17 09:20 Dose: 100 mls/hr Insulin Human Lispro (Humalog Med) 0 units SC ACHS [facility] PRN Reason: Protocol Last Admin: 06/23/17 18:41 Dose: Not Given Ondansetron HCl (Zofran Inj) 4 mg IVP Q4H PRN PRN Reason: Nausea/Vomiting Last Admin: 06/21/17 09:34 Dose: 4 mg Oxycodone/Acetaminophen (Percocet 5/325 Mg Tab) 1 tab PO Q4H PRN PRN Reason: Pain, moderate (4-7) Stop: 06/26/17 06:48 Last Admin: 06/23/17 18:45 Dose: 1 tab Oxycodone/Acetaminophen (Percocet 5/325 Mg Tab) 2 tab PO Q4H PRN PRN Reason: Pain, severe (8-10) Stop: 06/26/17 06:55 Pantoprazole Sodium (Protonix Ec Tab) 40 mg PO ACB [facility] Timolol Maleate (Timoptic 0.5% Ophth Soln) 0 drop OU BID [facility] Last Admin: 06/23/17 18:41 Dose: 1 drop Ursodiol (Actigall) 300 mg PO 0800 [facility] Last Admin: 06/17/17 09:23 Dose: 300 mg - Labs Labs: 06/20/17 08:50 03/26/18 06:20 PT 13.1 SECONDS (9.4-12.5) H 06/15/17 06:15 INR 1.14 (0.93-1.08) H 06/15/17 06:15 APTT 32.9 Seconds (25.1-36.5) 06/15/17 06:15 Attending/Attestation - Attestation I have personally seen and examined this patient.: Yes I have fully participated in the care of the patient.: Yes I have reviewed all pertinent clinical information, including history, physical exam and plan: Yes Notes (Text): This is an addendum to GI progress report dictated by Jaclyn Goss APN.The patient was seen and examined earlier. Medical records, lab studies, imagings were reviewed. Last 24 hours events reviewed. Agreed with the above treatment plan as outlined in Jaclyn Goss APN's notes the with the addition of the following 06/23/17 23:21
--- NOTE | 2017-06-23 13:16 | CP.PCM.PN ---
Subjective - Date & Time of Evaluation Date of Evaluation: 06/23/17 Time of Evaluation: 11:10 - Subjective Subjective: Pt seen and examined, no acute events over night. Patient is out of bed to chair. AE hoses in place. No complaints. Objective - Vital Signs/Intake and Output Vital Signs (last 24 hours): Temp Pulse Resp BP Pulse Ox 98.7 F 90 18 127/70 95 06/23/17 07:30 06/23/17 07:30 06/23/17 07:30 06/23/17 09:19 06/23/17 07:30 Intake and Output: 06/23/17 06/23/17 06:59 18:59 Intake Total 180 Output Total 300 Balance -120 - Medications Medications: Current Medications Amlodipine Besylate (Norvasc) 10 mg PO DAILY [facility] Last Admin: 06/23/17 09:19 Dose: 10 mg Apixaban (Eliquis) 2.5 mg PO Q12 [facility] PRN Reason: Protocol Last Admin: 06/23/17 09:20 Dose: 2.5 mg Docusate Sodium (Colace) 100 mg PO DAILY [facility] Last Admin: 06/23/17 09:19 Dose: 100 mg Levofloxacin/Dextrose (Levaquin 250mg) 250 mg in 50 mls @ 100 mls/hr IVPB DAILY [facility] PRN Reason: Protocol Last Admin: 06/23/17 09:20 Dose: 100 mls/hr Insulin Human Lispro (Humalog Med) 0 units SC ACHS [facility] PRN Reason: Protocol Last Admin: 06/23/17 12:07 Dose: 1 units Ondansetron HCl (Zofran Inj) 4 mg IVP Q4H PRN PRN Reason: Nausea/Vomiting Last Admin: 06/21/17 09:34 Dose: 4 mg Oxycodone/Acetaminophen (Percocet 5/325 Mg Tab) 1 tab PO Q4H PRN PRN Reason: Pain, moderate (4-7) Stop: 06/26/17 06:48 Oxycodone/Acetaminophen (Percocet 5/325 Mg Tab) 2 tab PO Q4H PRN PRN Reason: Pain, severe (8-10) Stop: 06/26/17 06:55 Pantoprazole Sodium (Protonix Ec Tab) 40 mg PO ACB [facility] Timolol Maleate (Timoptic 0.5% Ophth Soln) 0 drop OU BID [facility] Last Admin: 06/23/17 09:22 Dose: 1 drop Ursodiol (Actigall) 300 mg PO 0800 [facility] Last Admin: 06/17/17 09:23 Dose: 300 mg - Labs Labs: 06/20/17 08:50 06/21/17 06:20 PT 13.1 SECONDS (9.4-12.5) H 06/15/17 06:15 INR 1.14 (0.93-1.08) H 06/15/17 06:15 APTT 32.9 Seconds (25.1-36.5) 06/15/17 06:15 - Constitutional Appears: No Acute Distress - Head Exam Head Exam: NORMOCEPHALIC - Eye Exam Eye Exam: EOMI, Normal appearance Pupil Exam: NORMAL ACCOMODATION - ENT Exam ENT Exam: Mucous Membranes Moist - Respiratory Exam Respiratory Exam: NORMAL BREATHING PATTERN - Cardiovascular Exam Cardiovascular Exam: +S1, +S2 - GI/Abdominal Exam GI & Abdominal Exam: Soft - Neurological Exam Neurological Exam: Alert, Awake, Oriented x3 - Psychiatric Exam Psychiatric exam: Normal Mood - Skin Skin Exam: Dry, Intact, Warm Assessment and Plan - Assessment and Plan (Free Text) Assessment: 81F w. cholecystitis s/p lap converted to open cortney, POD#4 Plan: -Clear for d/c from surgical standpoint -OOB to chair, encourage IS use -PT/OT as tolerated -d/w attending Rose Mary PGY2
--- NOTE | 2017-06-23 15:42 | DS ---
HISTORY OF PRESENT ILLNESS: The patient is 81-year-old, seen and examined, sitting in chair, seems to be comfortable, complaining of feeling nauseous, does not have good appetite, does not like what she was given for the lunch. PHYSICAL EXAMINATION: VITAL SIGNS: She is afebrile, pulse 84, respirations 18, blood pressure 143/70. LUNGS: Bilateral good airflow. No rhonchi or crackle. HEART: S1, S2 audible. ABDOMEN: Soft, slight epigastric discomfort. NEUROLOGICAL: She is awake, alert, oriented, communicative. LABORATORY EXAM: Blood sugar is 138. ASSESSMENT: 1. Status post choledocholithiasis with common bile duct dilatation. Patient underwent endoscopic ultrasonography and stent replacement and lithotripsy. 2. Status post cholecystectomy. 3. History of pulmonary embolism. 4. Ubu-[id number] diabetes. 5. History of hypertension. 6. History of chronic obstructive pulmonary disease. 7. Status post pacemaker placement. PLAN: She seems to be tolerating her food. Patient is clinically stable. We will switch her medicine to Eliquis. We will discontinue Actigall. Continue her on Colace. Continue Norvasc and timolol eyedrops. Patient will be transferred to [facility] [place], where family wants her rehab. Silvio Smith MD
--- NOTE | 2017-06-24 05:51 | DS ---
HOSPITAL COURSE: The patient is an 81-year-old who came in with abdominal pain, had common bile duct stone with dilatation, so she underwent an ERCP and had stent replaced, also had SpyGlass lithotripsy done. Patient was off of anticoagulant so to take that opportunity she also underwent initially lap cortney, led to open cholecystectomy. Doing well. PHYSICAL EXAMINATION: GENERAL: She is awake and alert, able to communicate and eating and tolerating. VITAL SIGNS: She is afebrile, pulse 90, respirations 18, blood pressure 127/70. LUNGS: Bilateral good airflow. No rhonchi or crackle. HEART: S1, S2 audible. ABDOMEN: Soft, slight palpable discomfort at the surgical site. NEUROLOGIC: She is awake, alert, oriented and communicative. LABORATORY EXAM: Blood sugar is 123. ASSESSMENT: 1. Status post cholecystectomy. 2. Status post sphincterotomy. 3. Status post SpyGlass lithotripsy for common bile duct stone. 4. History of hypertension. 5. Pulmonary embolism. 6. History of chronic obstructive pulmonary disease. PLAN: Patient is cleared by Surgical Team. She is tolerating food. She is not spiking fever. She is being discharged to [facility] where we will continue her on Eliquis and will reevaluate. She will be followed by the medical doctor in subacute rehab. Silvio Smith MD
[2017-06-24] MEDS ORDERED: Pantoprazole 40 mg EC Tab PO SCH (07:30)
--- NOTE | 2017-07-05 08:38 | OP ---
PROCEDURE DATE: 06/17/2017 PREOPERATIVE DIAGNOSES: Acute cholecystitis and cholelithiasis. POSTOPERATIVE DIAGNOSES: Acute cholecystitis and cholelithiasis. PROCEDURES: 1. Laparoscopic cholecystectomy, converted to open cholecystectomy. 2. Lysis of dense and extensive pelvic and abdominal adhesions. 3. Removal of the old hernia mesh. 4. Repair of the enterotomy x1. 5. Repair of the colotomy x3. SURGEON: Derik Duncan MD. BLOWER BLAST FURNACE: Dr. Lackey. ANESTHESIA ADMINISTERED BY: Karie Beck MD TYPE OF ANESTHESIA: General endotracheal anesthesia. ESTIMATED BLOOD LOSS: Minimal. SPECIMEN: Gallbladder with gallstones and portion of the hernia mesh. INDICATIONS: Patient is an 81-year-old female who came into the hospital with abdominal pain and discomfort, mostly in the epigastric area. Patient initially had elevated liver function test and was evaluated by GI. Now patient is prepared for laparoscopic cholecystectomy. Patient is status post previous hernia repair with mesh. Patient also underwent ERCP for common bile duct stones. Patient also is status post colon resection for diverticulitis previously. DESCRIPTION OF PROCEDURE: The patient was brought to the operating room, placed on the operating table in a supine position. The patient was connected to EKG, blood pressure, and pulse oximetry monitors. The patient then underwent general endotracheal anesthesia and was prepped and draped in the usual sterile fashion. First, standard time-out procedure took place where everybody in the room agreed as to the patient's identity, diagnoses and procedure to be performed. Next, a surgical plan for this patient as well as postoperative disposition and plans were discussed with the surgical team. First, using two towel clips, the anterior abdominal wall was elevated and a Veress needle was inserted through a small incision superior to the umbilicus. Once pneumoperitoneum was obtained, a 12-mm trocar was inserted through that incision and careful evaluation of the abdominal cavity revealed presence of dense adhesions adjacent to the trocar placement; however, the trocar itself appeared to be in a small loculated area free of adhesions. At this point, we proceeded with some blunt dissection using the scope and operative scope port was clamped. Once adequate area of the adhesions were cleared for placement of the 5 mm trocar, I then proceeded with placing 5 mm trocar in the subxiphoid position. Then further continued with dissecting the adhesions both in the upper abdomen as well as near the umbilicus. After a tedious dissection, we carefully evaluated the bowel and appeared there were several areas of deserosalization and possible perforation, and therefore a decision was made to proceed with opening of the abdominal cavity. Now, once we decided on this, an incision was made in the subcostal area on the right side and carried through the wall into the abdominal cavity. Once in there, careful evaluation was done and it appeared that there were two areas of bowel affected. One of them contained area of small bowel and one containing transverse colon. There were 3 areas in the colon which had perforation and therefore were treated as colotomy and repaired in 2 layers of 3-0 silk stitches. There was no gross contamination noted. The small bowel was repaired also in the similar fashion using 3-0 silk stitches in 2 layers. Once both of these pieces of bowel were repaired, the abdominal cavity was then copiously irrigated. All the irrigant fluid was suctioned out. The irrigation contained antibiotics. Now I proceeded with dissecting the gallbladder, starting from the top of the gallbladder and bring it down towards the base. Once the infundibulum was elevated and the gallbladder was detached, it was only hanging on the cystic duct. I then identified the cystic artery which was clipped and transected, and the cystic duct was also clipped. A cholangiogram was attempted; however, we were unable to fully visualize the dye as we were unable to place the catheter into the cystic duct due to the leak. At that point, I decided to proceed with ligation of the cystic duct distally and transecting it, and removing the gallbladder from the abdominal cavity. Patient had previous ERCP and therefore stones were cleared through the sphincterotomy. Now, the abdominal cavity was again copiously irrigated. All the irrigant fluid was suctioned out. There was excellent hemostasis noted. The amount of time spent on the lysis of adhesion, both in the pelvis and in the right upper quadrant, was over 1 hour in time. There was excellent hemostasis at the end of the procedure. Then I proceeded with closure of the wounds. Proceeded with closing trocar site with 0 Vicryl stitches and proceeded with closure of the right subcostal incision using #1 PDS in a running fashion. Subcutaneous tissues were reapproximated using 3-0 Vicryl and the skin was closed using surgical lynne. Prior to closure, a Elder drain was inserted into the abdominal cavity and placed in the area of the colotomy repair as well as small bowel repair, and brought out through the area of gallbladder fossa to the right upper quadrant lateral wall. Sterile dressings were applied to the wound. The patient tolerated the procedure well and there were no complications. The patient was awakened, extubated, and transferred to the recovery room for further observation. Derik Duncan MD
== END 2017-06-23 23:00 | DRG 415 ==
LOC: ED 10:07 → ERH 13:26 → 5RNO 16:01
PROVIDERS: ADMIT Internal Medicine; ATTEND Internal Medicine
PROC: 0FC98ZZ Extirpation of Matter from Common Bile Duct, Via Natural or Artificial Opening Endoscopic (ICD-10-PCS; 2017-06-11)
PROC: 0F798DZ Dilation of Common Bile Duct with Intraluminal Device, Via Natural or Artificial Opening Endoscopic (ICD-10-PCS; 2017-06-11)
PROC: 0DJ08ZZ Inspection of Upper Intestinal Tract, Via Natural or Artificial Opening Endoscopic (ICD-10-PCS; 2017-06-11)
PROC: BF43ZZZ Ultrasonography of Gallbladder and Bile Ducts (ICD-10-PCS; 2017-06-11)
PROC: 0FC98ZZ Extirpation of Matter from Common Bile Duct, Via Natural or Artificial Opening Endoscopic (ICD-10-PCS; 2017-06-15)
PROC: 0WPF0JZ Removal of Synthetic Substitute from Abdominal Wall, Open Approach (ICD-10-PCS; 2017-06-17)
PROC: 0DNW4ZZ Release Peritoneum, Percutaneous Endoscopic Approach (ICD-10-PCS; 2017-06-17)
PROC: 0FT40ZZ Resection of Gallbladder, Open Approach (ICD-10-PCS; principal; 2017-06-17 19:00)
PROC: 0FJ44ZZ Inspection of Gallbladder, Percutaneous Endoscopic Approach (ICD-10-PCS; 2017-06-17 19:00)
PROC: 0DQL0ZZ Repair Transverse Colon, Open Approach (ICD-10-PCS; 2017-06-17 19:00)
PROC: 0DQ80ZZ Repair Small Intestine, Open Approach (ICD-10-PCS; 2017-06-17 19:00)
DX: K80.66 Calculus of gallbladder and bile duct with acute and chronic cholecystitis without obstruction (principal); N39.0 Urinary tract infection, site not specified; J90 Pleural effusion, not elsewhere classified; Z53.31 Laparoscopic surgical procedure converted to open procedure; K66.0 Peritoneal adhesions (postprocedural) (postinfection); I10 Essential (primary) hypertension; J44.9 Chronic obstructive pulmonary disease, unspecified; I48.2 Chronic atrial fibrillation; E11.9 Type 2 diabetes mellitus without complications; E78.5 Hyperlipidemia, unspecified; I25.10 Atherosclerotic heart disease of native coronary artery without angina pectoris; K27.9 Peptic ulcer, site unspecified, unspecified as acute or chronic, without hemorrhage or perforation; H40.9 Unspecified glaucoma; B96.20 Unspecified Escherichia coli [E. coli] as the cause of diseases classified elsewhere; H91.90 Unspecified hearing loss, unspecified ear; G47.30 Sleep apnea, unspecified; K21.9 Gastro-esophageal reflux disease without esophagitis; Z86.711 Personal history of pulmonary embolism; Z86.718 Personal history of other venous thrombosis and embolism; Z79.01 Long term (current) use of anticoagulants; Z95.0 Presence of cardiac pacemaker; Z90.49 Acquired absence of other specified parts of digestive tract; Z87.891 Personal history of nicotine dependence; Z88.0 Allergy status to penicillin

== ENCOUNTER 2018-01-10 08:18 | Day surgery (SDC) | payer MEDICARE, OTHER ==
[2017-12-30 10:13] VITALS: BMI 27.6
[2018-01-10 09:47] LABS: BASO # 0.02 K/mm3 (0.0-2.0); BASO % 0.2 % (0.0-3.0); EOS % 0.2 % (1.5-5.0); GRAN # 8.23 (1.4-6.5); GRAN % 83.6 % (50.0-68.0); HEMOGLOBIN 12.4 g/dL (12.0-16.0); LYMPH # 1.2 (1.2-3.4); LYMPH % 12.4 % (22.0-35.0); MEAN CELL VOLUME 93.2 fl (80.0-105.0); MEAN CORPUSCULAR HEMOGLOBIN 30.2 pg (25.0-35.0); MEAN CORPUSCULAR HGB CONC 32.5 g/dl (31.0-37.0); MONO # 0.4 (0.1-0.6); MONO % 3.6 % (1.0-6.0); RBC 4.1 10^6/uL (3.5-6.1); RED CELL DISTRIBUTION WIDTH 12.8 % (11.5-14.5); WHITE BLOOD COUNT 9.8 10^3/ul (4.5-11.0)
[2018-01-10 09:54] LABS: PROTHROMBIN TIME 11.5 SECONDS (9.4-12.5)
[2018-01-10 10:03] LABS: BLOOD UREA NITROGEN 28 mg/dL (7-21); GFR NON-AFRICAN AMERICAN > 60; HDL CHOLESTEROL 45 mg/dL (29-60)
[2018-01-10 10:13] LABS: LDL CHOLESTEROL 118 mg/dL (0-129)
[2018-01-10] MEDS ORDERED: Lidocaine 2% PF (10 ml) Amp ONE ×2 (10:28→11:22)
[2018-01-10] MEDS ORDERED: Vancomycin 500 mg (Oral/Rectal USE) ONE (10:36)
[2018-01-10] MEDS ORDERED: Midazolam 2 MG/2 ML VIAL ONE (11:16)
[2018-01-10] MEDS ORDERED: Liquid Adhesive TOP ONE (11:53)
[2018-01-10 13:12] VITALS: RESP 18
[2018-01-10 13:43] VITALS: PULSE 64; TEMP 98.5
[2018-01-10 14:32] VITALS: BP 118/53; O2SAT 96
--- NOTE | 2018-01-10 22:17 | OP ---
PROCEDURE DATE: 01/10/2018 PROCEDURE: Dual chamber permanent pacemaker generator change. PREPROCEDURE DIAGNOSES: Sick sinus syndrome, also permanent pacemaker generator at [facility]. BRIEF HISTORY: Ms. Aretha Orlando is an 82-year-old female with past medical history significant for sick sinus syndrome status post Medtronic permanent pacemaker implantation in 1999, also history of diabetes, hypertension, hyperlipidemia, pulmonary embolus, on Eliquis, chronic renal insufficiency who initially presented for electrophysiology evaluation on 12/22/2017. Her device was found to be [facility]. She was then referred for permanent pacemaker generator change. Patient was agreeable. She presented today for the elective permanent pacemaker generator change. Extensive conversations were had with her primary rn long term care gentleman by the Christopher who is her son. Procedure was described in detail. Patient was agreeable for permanent pacemaker generator change. Informed consent was received for the procedure as well as conscious sedation of which she only received 1 mg of Versed and 25 mcg of Fentanyl. The informed consent was received. DESCRIPTION OF PROCEDURE: Ms. Aretha Orlando was brought to the laboratory chief at today 01/10/2018 for the aforementioned procedure. The left pectoral area was draped and prepped in a sterile fashion and initial fluorogram reviewed showed a permanent pacemaker in normal location. Two leads were felt to be in reasonable fluoroscopic location, one in the right atrium, one in the right ventricle. There were no leads that were atop the existing device. Using 2% lidocaine solution, the surgical site was anesthetized. Top of the existing scar, a 3.5 cm incision was made. Judicious use of cautery was performed to free the existing device from the pocket. Patient has a Medtronic Sigma DR device, model [id number] initially implanted 08/24/2002. The lead system and the device were removed from the pocket. A detailed capsulectomy was performed again without difficulty. The device and lead system were then taken out of the pocket. The atrial lead is a 45, 92, 45 cm Medtronic lead, serial number [id number]. The right ventricular lead is a 40, 92, 52 cm lead, serial number [id number]. Both were implanted 08/24/2002. The device was removed from the pocket. The device was then connected to the new pulse generator which is a [employer] Assurity MRI device, serial number [id number]. Lead parameters were within normal limits with thresholds of 1.0 volt at 0.4 milliseconds on both leads. Sensing was also adequate with P wave to 2.1, R waves of 11.4. Pacing impendence was also normal on both leads at 390 and 530 respectively. Patient did have underlying rhythm although bradycardiac, but certainly present. Ventricular pacing initially was 100%. Patient has had DDD 60 to 100 paced AVD delay to allow intrinsic conduction was 275 and 250 respectively. Lead system and device were then coiled and placed in the pocket. A retention suture using 0 silk suture was applied. The superficial fascial and skin layers were brought together using 2-0 Vicryl. Final device location and leads were then documented with fluoroscopy. Patient tolerated the procedure without any issues. Mastisol and Steri-Strips were applied and a small pressure dressing was applied. PLAN: Patient will be continued on all of her current medications. Patient may be discharged in a period of 2 hours. A small pressure dressing will be removed and evaluated. If everything is within normal limits, patient will be discharged in approximately 2 hours to follow up in the office in a period of 2 weeks. Instructions were given to the patient. The son was present prior to the procedure, could not be located after the procedure. I have also instructed my office to give her a call for followup again in a period of 2 weeks. IMPRESSION: Successful permanent pacemaker generator change. Patient now has a [employer] dual chamber permanent pacemaker. Thank you for allowing me to participate in the care of your patient. Please do not hesitate to call if you have any questions in regards to her care. Jose Angel Anaya MD cc: Dr. Clare Jenkins
== END 2018-01-10 15:40 | disposition home or self-care (01) ==
LOC: SDS 08:18 → CATH 08:18
PROVIDERS: ATTEND Internal Medicine Cardiovascular Disease
DX: Z45.010 Encounter for checking and testing of cardiac pacemaker pulse generator [battery] (principal); I49.5 Sick sinus syndrome; I12.9 Hypertensive chronic kidney disease with stage 1 through stage 4 chronic kidney disease, or unspecified chronic kidney disease; E11.22 Type 2 diabetes mellitus with diabetic chronic kidney disease; N18.9 Chronic kidney disease, unspecified; E78.5 Hyperlipidemia, unspecified; Z79.84 Long term (current) use of oral hypoglycemic drugs; Z86.711 Personal history of pulmonary embolism; Z79.01 Long term (current) use of anticoagulants
CPT/HCPCS: 33228; 36415; 80048; 80061; 85025; 85610; 85730; 86850; 86900; 99152; 99153; C1785; J2250; J3010; J7040

== ENCOUNTER 2018-03-02 13:17 | Day surgery (SDC) | payer MEDICARE, OTHER ==
[2018-03-01 09:02] VITALS: BMI 25.4
[2018-03-02 14:13] LABS: BASO # 0.04 K/mm3 (0.0-2.0); BASO % 0.7 % (0.0-3.0); EOS # 0.1 (0.0-0.7); EOS % 1.3 % (1.5-5.0); GRAN # 2.76 (1.4-6.5); GRAN % 44.9 % (50.0-68.0); LYMPH % 48.9 % (22.0-35.0); MEAN CELL VOLUME 93.4 fl (80.0-105.0); MEAN CORPUSCULAR HEMOGLOBIN 30.7 pg (25.0-35.0); MEAN CORPUSCULAR HGB CONC 32.9 g/dl (31.0-37.0); MEAN PLATELET VOLUME 9.7 fl (7.0-11.0); MONO # 0.3 (0.1-0.6); MONO % 4.2 % (1.0-6.0); RBC 4.23 10^6/uL (3.5-6.1); RED CELL DISTRIBUTION WIDTH 12.8 % (11.5-14.5); WHITE BLOOD COUNT 6.2 10^3/uL (4.5-11.0)
[2018-03-02 14:21] LABS: CALCIUM 9.9 mg/dL (8.4-10.5)
[2018-03-02 14:31] LABS: INR 0.97; PARTIAL THROMBOPLASTIN TIME 30.3 Seconds (25.1-36.5); PROTHROMBIN TIME 11.1 SECONDS (9.4-12.5)
[2018-03-02] MEDS ORDERED: Liquid Adhesive TOP ONE (14:36)
[2018-03-02] MEDS ORDERED: Lidocaine 2% Inj (20ml) ONE (15:13)
[2018-03-02] MEDS ORDERED: Propofol 10 mg/ml Inj (20 ML) ONE (15:18)
[2018-03-02] MEDS ORDERED: Midazolam 2 MG/2 ML VIAL ONE (15:19)
[2018-03-02] MEDS ORDERED: HYDROmorphone 0.5 mg/0.5 ml ISec IVP PRN (16:56)
[2018-03-02] MEDS ORDERED: Lactated Ringer's 1,000 ML IV SCH (17:00)
--- NOTE | 2018-03-02 17:50 | CARD ---
APPROVED REPORT Date of service: 03/02/2018 EKG Measurement Heart [id number] <Conclusion> Electronic atrial pacemaker
[2018-03-02 17:58] VITALS: RESP 20; TEMP 97.1; O2SAT 98
[2018-03-02 18:21] VITALS: BP 148/81; PULSE 64
--- NOTE | 2018-03-03 07:46 | OP ---
PROCEDURE DATE: 03/02/2018 PROCEDURE: Permanent pacemaker pocket revision. PREOPERATIVE DIAGNOSIS: Pacemaker pocket pain. POSTOPERATIVE DIAGNOSIS: Pacemaker pocket pain. BRIEF HISTORY: The patient is an 82-year-old -[place] female with past medical history significant for sick-sinus syndrome status post initial permanent pacemaker implantation in 2001, who presented on 01/10/2018 for permanent pacemaker generator change here at [facility]. The patient underwent successful permanent pacemaker generator change and followed up in the office a number of times complaining of severe positional pacemaker site pain. Despite conservative measures, the patient had ongoing issues in terms of moving her left upper extremity. After discussing various options, the patient was agreeable for a permanent pacemaker pocket revision, more specifically a submuscular repositioning of her device. The patient presents today off of her Eliquis for the aforementioned procedure. The patient and son were informed of the risks and benefits of the procedure, consent was obtained and signed and witnessed. DESCRIPTION OF PROCEDURE: The patient was brought to the Cardiac [facility] Operator at [facility] for the aforementioned procedure. The left pectoral area was draped and prepped in a sterile fashion. A 2% lidocaine solution was injected into the surgical site. A 4.5 cm incision was made overlying the distinct device. The device pocket was opened. Device was exteriorized. The procedure was also performed with Anesthesia present with the plan being a submuscular pocket. In addition, prior to making an incision removing the device, a fluoroscopy was performed to document reposition prior to and after pocket revision. There was no interval movement of the wires by the way. The device was removed from the pocket, it is a [employer] Assurity MRI-Safe device, serial number [id number]. The device was then taken out of the pocket, leads freed from the existing pocket. A capsulectomy was performed to remove excess fibrinous material within the pocket. Subsequently, dissecting through the deltopectoral groove, a submuscular pocket/subpectoral pocket was made with minimal difficulty with the assistance of anesthesia with increasing sedation. The submuscular pocket was then irrigated using bacitracin solution to lead and the device system was then coiled and placed into submuscular position without difficulty. After repositioning the device, the entire leading device system was again reintegrated under fluoroscopy without any movement or disruption of the lead system. The patient remained in a normal/paced rhythm throughout the procedure. The muscular bellies of the deltoid and pectoral muscles were brought together using 0 silk suture. The superficial fascial and skin layers were brought together using 2 layers of 2-0 Vicryl. The patient tolerated the procedure well, was comfortable for much of the procedure. She remained hemodynamically stable and taken out of the room in hemodynamically stable condition. PLAN: The patient should discharged in a period of 2 hours. Eliquis will be restarted tomorrow evening. The patient will also be written for oral pain medication. She does have Percocet at home; however, according to the son and her, she only has a few tablets, therefore a prescription for Percocet will be given. The patient will follow up in the office in a period of 1 to 2 weeks in my [place] office. She is familiar with this office and will make arrangements for followup. Thank you for allowing me to participate in the care of this patient. Do not hesitate to call if you have any questions in regards to her care. Jose Angel Anaya MD cc: Clare Jenkins DO
== END 2018-03-02 18:55 | disposition home or self-care (01) ==
LOC: CATH 13:17
PROVIDERS: ATTEND Internal Medicine Cardiovascular Disease
DX: T82.847A Pain due to cardiac prosthetic devices, implants and grafts, initial encounter (principal); I49.5 Sick sinus syndrome; Y84.8 Other medical procedures as the cause of abnormal reaction of the patient, or of later complication, without mention of misadventure at the time of the procedure; E78.5 Hyperlipidemia, unspecified; J44.9 Chronic obstructive pulmonary disease, unspecified; M19.90 Unspecified osteoarthritis, unspecified site; I12.9 Hypertensive chronic kidney disease with stage 1 through stage 4 chronic kidney disease, or unspecified chronic kidney disease; E11.22 Type 2 diabetes mellitus with diabetic chronic kidney disease; N18.9 Chronic kidney disease, unspecified
CPT/HCPCS: 33222; 36415; 80048; 80061; 85025; 85610; 85730; 93005; 99152; J1170; J2001; J2250; J2704; J3010; J7120

== ENCOUNTER 2018-04-18 15:04 | Outpatient (CLI) | payer MEDICARE, OTHER | END 2018-04-18 15:05 | disposition home or self-care (01) | LOC: RAD 15:04 ==

== ENCOUNTER 2018-05-02 10:12 | Outpatient (CLI) | payer MEDICARE, OTHER | END 2018-05-02 10:13 | disposition home or self-care (01) | LOC: RAD 10:12 ==